=== PATIENT | male | born 1950 | race Two or more races ===

== ENCOUNTER 2025-03-15 12:22 | Inpatient (IN) | payer OTHER ==
[~2025-03-15] VITALS: Ht 180.3 cm; Wt 93.0 kg
--- NOTE | 2025-03-15 12:34 | ED.PDOC ---
History of Present Illness HPI Comments 74-year-old male brought by paramedics from [facility] office for generalized weakness. Has he has a visited his primary care physician office yesterday for generalized weakness for which he had blood work done. Blood work did show potassium to be low. He was given potassium. He has been back today for follow up which shows potassium reviewed still low. Potassium was 2.5. His heart rate was 40. Does have a history of atrial fibrillation hypertension possible CHF because he is on Lasix. He does have chronic bilateral lower extremity swelling. Other than generalized weakness he denies any other symptoms. Time Seen by MD: 12:29 Reviewed Notes: Nurses Notes, Medications, Allergies Allergies: Coded Allergies: NO KNOWN ALLERGIES (Unverified , 03/15/25) Information Source: Patient, Emergency Med Personnel Mode of Arrival: EMS Severity: Moderate Timing: Days Duration: Since onset Past Medical History PAST MEDICAL HISTORY: AFIB, HTN Surgical History: Denies all surgeries Social History Smoker: Non-Smoker Alcohol: Denies ETOH Use Drugs: Denies Drug Use Constitutional: reports: weakness; denies: chills, diaphoresis, fatigue, fever, malaise, sweats, others EENTM: denies: blurred vision, double vision, ear bleeding, ear discharge, ear drainage, ear pain, ear ringing, eye pain, eye redness, hearing loss, mouth pain, mouth swelling, nasal discharge, nose bleeding, nose congestion, nose pain, photophobia, tearing, throat pain, throat swelling, voice changes, others Respiratory: denies: cough, hemoptysis, orthopnea, SOB at rest, shortness of breath, SOB with excertion, stridor, wheezing, others Cardiovascular: denies: chest pain, dizzy spells, diaphoresis, Dyspnea on exertion, edema, irregular heart beat, left arm pain, lightheadedness, palpitations, PND, syncope, others Gastrointestinal: denies: abdomen distended, abdominal pain, blood streaked bowels, constipated, diarrhea, dysphagia, difficulty swallowing, hematemesis, melena, nausea, poor appetite, poor fluid intake, rectal bleeding, rectal pain, vomiting, others Genitourinary: denies: burning, dysuria, flank pain, frequency, hematuria, i ncontinence, penile discharge, penile sore, pain, testicle pain, testicle swelling, urgency, others Neurological: denies: dizziness, fainting, headache, left sided numbness, left sided weakness, numbness, paresthesia, pre-existing deficit, right sided numbness, right sided weakness, seizure, speech problems, tingling, tremors, weakness, others Musculoskeletal: denies: back pain, gout, joint pain, joint swelling, muscle pain, muscle stiffness, neck pain, others Integumetry: denies: bruises, change in color, change in hair/nails, dryness, laceration, lesions, lumps, rash, wounds, others Allergic/Immunocompromised: denies: Difficulty Healing, Frequent Infections, Hives, Itching, others Hematologic/Lymphatic: denies: anemia, blood clots, easy bleeding, easy bruising, swollen glands, others Endocrine: denies: excessive hunger, excessive sweating, excessive thirst, excessive urination, flushing, intolerance to cold, intolerance to heat, unexplained weight gain, unexplained weight loss, others Psychiatric: denies: anxiety, bipolar disorder, depression, hopeless, panic disorder, schizophrenia, sleepless, suicidal, others Physical Exam General Appearance: Moderate Distress HEENT: Normal ENT Inspection, Pharynx Normal, TMs Normal Neck: Full Range of Motion, Non-Tender, Normal, Normal Inspection Respiratory: Chest Non-Tender, Lungs Clear, No Accessory Muscle Use, No Respiratory Distress, Normal Breath Sounds Cardiovascular: Bradycardia Breast Exam: Deferred Gastrointestinal: No Organomegaly, Non Tender, No Pulsatile Mass, Normal Bowel Sounds, Soft, Other (Umbilical hernia) Genitalia: Deferred Pelvic: Deferred Rectal: Deferred Extremities: No calf tenderness, Normal capillary refill, Normal range of motion, Non-tender, Pedal edema, Swelling (Bilateral lower extremity) Musculoskeletal : Apperance: Normal Neurologic: Alert, comb fixer II-XII nml as Tested, No Motor Deficits, Normal Affect, Normal Mood, No Sensory Deficits Cerebellar Function: Normal Reflexes: Normal Skin: Dry, Normal Color, Warm Peripheral Pulses: 3+ Radial (R), 3+ Radial (L) Lymphatic: No Adenopathy Was a procedure done? Was a procedure done?: No EKG EKG : Pulse Rate (adult): 48 Cardiac Rhythm: Afib Differential Dx Considerations may include: Anemia Electrolyte imbalance X-Ray, Labs, Meds, VS Vital Signs Date Time Temp Pulse Resp B/P (MAP) Pulse Ox O2 Delivery O2 Flow Rate FiO2 03/15/25 12:43 48 03/15/25 12:36 97.2 48 16 141/71 97 97.2 Patient alert. Complaining of generalized weakness. Potassium is low. Answering questions. Heart rate is low. He does have a history of atrial fibrillation. Was given potassium. Establish intravenous access. Explained to the patient. Continue to monitor. Time of 1ST Reevaluation: 12:32 Reevaluation 1ST: Unchanged Patient Education/Counseling: Diagnosis, Treatment, Prognosis Family Education/Counseling: No Family Present SEPSIS Sepsis Screen Physician Orders Troponin-I Hs (03/15/25 12:34) Complete Blood Count (03/15/25 12:34) Chest Portable (03/15/25 12:34) Urinalysis (03/15/25 12:34) Basic Metabolic Panel (03/15/25 12:34) Vital Signs Date Time Temp Pulse Resp B/P (MAP) Pulse Ox O2 Delivery O2 Flow Rate FiO2 03/15/25 12:43 48 03/15/25 12:36 97.2 48 16 141/71 97 97.2 Departure 1 Departure Time of Disposition: 12:33 Impression: Primary Impression: Bradycardia Disposition: ADMITTED INPATIENT Admit to: Med Surg Condition: Guarded Critical Care Note Critical Care Time?: Yes (90 min-critical care time only) Stability Stability form required: No Heart Score Heart Score: Heart Score Response (Comments) Value History Slightly Suspicious 0 EKG Normal 0 Age >65 2 Risk Factors >3 or Hx ASHD 2 Troponin Normal limit 0 Total 4 RANDY DE LOS SANTOS MD Mar 15, 2025 12:34
[2025-03-15 13:15] LABS: Anion Gap 10 (5-15)
[2025-03-15 13:16] LABS: Calcium 9.7 mg/dL (8.7-10.4)
[2025-03-15 13:19] LABS: Carbon Dioxide 33 mmol/L (20-31); Chloride 78 mmol/L (98-107); Potassium 2.9 mmol/L (3.5-5.1); Sodium 121 mmol/L (136-145)
[2025-03-15 13:21] LABS: BUN/Creatinine Ratio 21.6 (10.0-20.0)
[2025-03-15 13:26] LABS: Blood Urea Nitrogen 37 mg/dL (9-23); Glucose 112 mg/dL (74-106)
--- NOTE | 2025-03-15 13:43 | DVH ---
EXAM: XY CHEST PORTABLE Indication: sob Technique: Single frontal view of the chest was obtained Comparison: None FINDINGS: Lines and Tubes: None Lungs: No focal consolidation. Pleura: No effusion. No pneumothorax. Cardiomediastinal contours: Unremarkable. Atherosclerotic vascular calcifications of the thoracic ao rta are noted. Bones: No acute osseous abnormality. IMPRESSION: No acute cardiopulmonary disease.
[2025-03-15 15:03] LABS: Hematocrit 40.6 % (41.0-53.0); Hemoglobin 14.8 g/dL (13.5-17.5); Mean Corpuscular Hemoglobin 33.0 pg (28.0-32.0); Mean Corpuscular Volume 90.4 fL (80.0-100.0); Nucleated Red Blood Cells % 0.6 %
[2025-03-15] MEDS ORDERED: NITROGLYCERIN 0.4 MG SL TAB SL PRN (20:00)
[2025-03-15] MEDS ORDERED: MORPHINE SULFATE INJ 2 MG/ml SYRG IV PRN (20:00)
[2025-03-15] MEDS: POTASSIUM CHL 20MEQ/100ML 100 ML IV SCH (20:31)
[2025-03-15] MEDS: POTASSIUM EFFERVESENT TAB 25 MEQ PO ONE (20:31)
[2025-03-15 21:00] VITALS: O2SAT 97
[2025-03-15] MEDS: DOPamine 1600MCG/ML D5W 250 ML IV SCH (21:00)
[2025-03-15] MEDS ORDERED: ACETAMINOPHEN 325 MG TAB PO PRN (21:45)
[2025-03-15] MEDS ORDERED: ONDANSETRON HCL 4 MG/2 ML VIAL IV PRN (21:45)
--- NOTE | 2025-03-15 21:52 | DVHHP2 ---
History of Present Illness Reason for Visit: Generalized weakness History of Present Illness 74-year-old male presents for evaluation of generalized weakness. Patient reports receiving a call from his primary care provider's office and advised to present to the emergency department due to an abnormal low potassium level. He also reports a one-week history of worsening dizziness with fatigue. No chest pain. Reports occasional shortness for breath. He does have a history of chronic bilateral lower extremity edema. Past Medical History CHF, hypertension, atrial fibrillation Past Surgical History None Family History Noncontributory Smoke: No ALCOHOL: none Drugs: None Lives: with Family Review of Systems Review of Systems Review of systems are currently negative otherwise addressed in HPI. Allergies: Coded Allergies: NO KNOWN ALLERGIES (Unverified , 03/15/25) Medications Current Medications Medications Dose Ordered Sig/Lucio Route Start Time Stop Time Status Last Admin Dose Admin Potassium Chloride 100 ml @ 50 mls/hr Q2H IV 03/15/25 19:15 03/15/25 23:14 03/15/25 20:31 50 MLS/HR Nitroglycerin 0.4 mg Q5MINP PRN SL 03/15/25 20:00 Morphine Sulfate 2 mg Q30M PRN IV 03/15/25 20:00 Dopamine HCl/ Dextrose 250 ml @ 16.594 mls/ hr Q15H4M IV 03/15/25 21:00 Exam Vital Signs Vital Signs Date Time Temp Pulse Resp B/P (MAP) Pulse Ox O2 Delivery O2 Flow Rate FiO2 03/15/25 21:00 97.6 46 15 125/54 (77) 100 97.6 Exam Gen: 74-year-old male in mild distress Skin: Warm, dry, normal color and texture, no rash. HEENT: Normocephalic atraumatic, mucous membranes moist and pink. Neck: Cervical and supraclavicular nodes normal without enlargement, trachea is midline, thyroid gland is normal without masses. Pulmonary: Clear to auscultation and percussion bilaterally. Cardiac: Sinus bradycardia Abdomen: Soft, nontender, nondistended, bowel sounds present all 4 quadrants, no guarding, no rigidity, no organomegaly. Extremities: No cyanosis, clubbing, plus two bilateral pedal edema Neuro: Cranial nerves II through XII grossly intact, normal affect and speech, no focal motor deficits. Labs/Xrays ORDERING PHYSICIAN: RANDY DE LOS SANTOS MD PROCEDURE(s): CXRP - CHEST PORTABLE REASON: sob ORDER NUMBER(s): [id number], ACCESSION NUMBER(s): [id number] EXAM: XY CHEST PORTABLE Indication: sob Technique: Single frontal view of the chest was obtained Comparison: None FINDINGS: Lines and Tubes: None Lungs: No focal consolidation. Pleura: No effusion. No pneumothorax. Cardiomediastinal contours: Unremarkable. Atherosclerotic vascular calcifications of the thoracic aorta are noted. Bones: No acute osseous abnormality. IMPRESSION: No acute cardiopulmonary disease. Labs Test 03/15/25 12:50 Range/Units White Blood Count 9.2 4.4-10.8 10^3/uL Red Blood Count 4.49 L 4.5-5.90 10^6/uL Hemoglobin 14.8 13.5-17.5 g/dL Hematocrit 40.6 L 41.0-53.0 % Mean Corpuscular Volume 90.4 80.0-100.0 fL Mean Corpuscular Hemoglobin 33.0 H 28.0-32.0 pg Mean Corpuscular Hemoglobin Concent 36.5 H 32.0-36.0 g/dL Red Cell Distribution Width 12.7 11.8-14.3 % Platelet Count 214 140-450 10^3/uL Mean Platelet Volume 7.0 6.9-10.8 fL Neutrophils (%) (Auto) 74.5 37.0-80.0 % Lymphocytes (%) (Auto) 11.5 10.0-50.0 % Monocytes (%) (Auto) 12.7 H 0.0-12.0 % Eosinophils (%) (Auto) 0.4 0.0-7.0 % Basophils (%) (Auto) 0.9 0.0-2.0 % Neutrophils # (Auto) 6.9 1.6-8.6 10 ^3/uL Lymphocytes # (Auto) 1.1 0.4-5.4 10 ^3/uL Monocytes # (Auto) 1.2 0-1.3 10 ^3/uL Eosinophils # (Auto) 0 0-0.8 10 ^3/uL Basophils # (Auto) 0.1 0-0.2 10 ^3/uL Nucleated Red Blood Cells 0.6 % Sodium Level 121 L 136-145 mmol/L Potassium Level 2.9 L 3.5-5.1 mmol/L Chloride Level 78 L 98-107 mmol/L Carbon Dioxide Level 33 H 20-31 mmol/L Anion Gap 10 5-15 Blood Urea Nitrogen 37 H 9-23 mg/dL Creatinine 1.71 H 0.700-1.30 mg/dL Glomerular Filtration Rate Calc 42 >90 mL/min BUN/Creatinine Ratio 21.6 H 10.0-20.0 Serum Glucose 112 H 74-106 mg/dL Calcium Level 9.7 8.7-10.4 mg/dL Troponin I High Sensitivity 15 </=54 ng/L SEPSIS Sepsis Screen Date sepsis recognized/suspect: Mar 15, 2025 Time Sepsis recognized/suspect: 2100 Recent Procedure: No On Antibiotic Therapy: No Respiratory Rate >20: No Heart Rate >90: No Temp<36 C (96.8 F) or >38.3 C: No SBP <90 or MAP <65 mmHG: No New Acute Mental Status Change: No Is the patient on CPAP, BIPAP,: No Physician Orders Potassium Chl 20meq/100ml (03/15/25 19:15) Admit (03/15/25 19:52) Nitroglycerin Sublingual (Ntrostat Subli (03/15/25 20:00) Morphine Sulfate Injection (03/15/25 20:00) Stat Ekg For Chest Pain (03/15/25 19:52) Notify Md Of Changes From Base (03/15/25 19:52) Subscription Clerk For 24 Hours (03/15/25 19:52) Emergency Dysrhythmia Protocol (03/15/25 19:52) Rhythm Strips Once Every Shift (03/15/25 19:52) Oxygen By Nasal Cannula (03/15/25 19:52) Dopamine 1600mcg/Ml D5w (03/15/25 21:00) Vital Signs Date Time Temp Pulse Resp B/P (MAP) Pulse Ox O2 Delivery O2 Flow Rate FiO2 03/15/25 21:00 97.6 46 15 125/54 (77) 100 97.6 Laboratory Tests Test 03/15/25 12:50 White Blood Count 9.2 10^3/uL (4.4-10.8) Medications Medications Dose Ordered Sig/Lucio Route Start Time Stop Time Status Last Admin Dose Admin Potassium Bicarbonate 25 meq ONCE ONCE PO 03/15/25 19:15 03/15/25 19:16 DC 03/15/25 20:31 25 MEQ Potassium Chloride 100 ml @ 50 mls/hr Q2H IV 03/15/25 19:15 03/15/25 23:14 03/15/25 20:31 50 MLS/HR Assessment/Plan Assessment/Plan Assessment Symptomatic bradycardia Hypokalemia Hypertension Acute kidney injury Chronic lower extremity edema Plan Admit the patient to [facility] to the hospitalist Cardiology consultation NPO after midnight Start dopamine drip if systolic blood pressure drops below 100 Continue treatment per orders Total critical care time excluding procedures performed this 55 minutes. Plan discussed with: Patient My Orders Orders - BUNNY RAYA Procedure Category Date Status Time Admit ADMIT 03/15/25 Transmitted 19:52 Nitroglycerin PHA 03/15/25 In Process Sublingual (Ntrostat 20:00 Morphine Sulfate PHA 03/15/25 In Process Injection 20:00 Stat Ekg For Chest MARCELLA 03/15/25 In Process Pain 19:52 Notify Md Of Changes MARCELLA 03/15/25 In Process From Base 19:52 Subscription Clerk For MARCELLA 03/15/25 In Process 24 Hours 19:52 Emergency Dysrhythmia [facility] 03/15/25 In Process Protocol 19:52 Rhythm Strips Once [facility] 03/15/25 In Process Every Shift 19:52 Oxygen By Nasal RT 03/15/25 Transmitted Cannula 19:52 Dopamine 1600mcg/Ml PHA 03/15/25 In Process D5W 21:00 Date of Service: Mar 15, 2025 Billing Provider: BUNNY RAYA Common Visit Codes: [id number] CARE 30-74 MIN BUNNY RAYA Mar 15, 2025 21:52
[2025-03-15 22:19] LABS: INR 1.05 (0.9-1.15); Partial Thromboplastin Time 28.5 SEC (24.5-34.5); Prothrombin Time 11.1 sec (9.3-11.8)
[2025-03-15] MEDS: APIXABAN 5 MG TAB PO SCH (22:25)
[2025-03-15] MEDS: GLUCAGON EMERG KIT 1mg/1ml IV ONE (22:28)
[2025-03-16] VITALS (20 sets, daily range): BP systolic 111–153; BP diastolic 49–85; PULSE 42–56; RESP 9–20; TEMP 97.5–97.9; O2SAT 97–100
[2025-03-16 04:51] LABS: Hematocrit 37.2 % (41.0-53.0); Hemoglobin 13.5 g/dL (13.5-17.5); Mean Corpuscular Hemoglobin 33.0 pg (28.0-32.0); Mean Corpuscular Volume 90.8 fL (80.0-100.0); Nucleated Red Blood Cells % 0.3 %
[2025-03-16 04:57] LABS: Potassium 3.8 mmol/L (3.5-5.1)
[2025-03-16 04:58] LABS: Anion Gap 7 (5-15); Calcium 8.9 mg/dL (8.7-10.4)
[2025-03-16 04:59] LABS: Carbon Dioxide 33 mmol/L (20-31); Chloride 85 mmol/L (98-107); Sodium 125 mmol/L (136-145)
[2025-03-16 05:03] LABS: BUN/Creatinine Ratio 22.8 (10.0-20.0); Glucose 87 mg/dL (74-106)
[2025-03-16 05:04] LABS: Blood Urea Nitrogen 38 mg/dL (9-23)
[2025-03-16] MEDS: FUROSEMIDE 40 MG TAB PO SCH (06:21)
--- NOTE | 2025-03-16 06:22 | ECG ---
[facility] Test Date: 2025-03-16 Test Time: 06:19:42 Pat Name: CORINA FRANCISCO Department: Room: [facility]24[facility] Gender: M Thoracic Medicine Specialist: [id number] : 1950 Requested By: BUNNY RAYA Order Number: [id number] Reading MD: Dewayne Navarro Measurements Intervals [place] Rate: 47 P: 0 HI: 0 QRS: 53 QRSD: 158 T: -16 QT: 491 QTc: 434 Interpretive Statements Atrial fibrillation Ventricular premature complex IVCD, consider atypical RBBB Probable anteroseptal infarct, old Borderline ST depression, lateral leads Electronically Signed On 03-16-2025 13:12:52 PDT by Dewayne Navarro Please click the below link to view image of tracing.
[2025-03-16 07:00] LABS: Urine Protein, UAD Negative (Negative)
--- NOTE | 2025-03-16 10:53 | ECG ---
[facility] Test Date: 2025-03-15 Test Time: 12:38:59 Pat Name: CORINA FRANCISCO Department: ED Room: [address] [place] [address] Gender: M Technical Operations Manager: brii : 1950 Requested By: RANDY DE LOS SANTOS Order Number: [id number] Reading MD: Dewayne Navarro Measurements Intervals [place] Rate: 48 P: 0 NH: 0 QRS: 93 QRSD: 151 T: 3 QT: 627 QTc: 561 Interpretive Statements Atrial fibrillation Ventricular premature complex IVCD, consider atypical RBBB Anteroseptal infarct, age indeterminate Electronically Signed On 03-16-2025 13:11:50 PDT by Dewayne Navarro Please click the below link to view image of tracing.
[2025-03-16] MEDS: DOPamine 1600MCG/ML D5W 250 ML IV SCH (11:00)
[2025-03-16] MEDS: DOPamine 1600MCG/ML D5W 250 ML IV ONE (11:05)
--- NOTE | 2025-03-16 12:08 | DVHINCON2 ---
Date of service: Mar 16, 2025 History of Present Illness 74 yo M with CHF, on hospice admitted for weakness. he is found to be in slow afib. we dont have his home list of meds. pt has been on hospice for past month or so. Past Medical History reviewed Allergies: Coded Allergies: NO KNOWN ALLERGIES (Unverified , 03/15/25) Current Medications Current Medications Medications (Trade) Dose Ordered Sig/Lucio Route PRN Reason Start Time Stop Time Status Last Admin Potassium Chloride 100 ml @ 50 mls/hr Q2H IV 03/15/25 19:15 03/15/25 23:14 DC 03/15/25 22:25 Nitroglycerin (Ntrostat Sublingual) 0.4 mg Q5MINP PRN SL FOR CHEST PAIN 03/15/25 20:00 Morphine Sulfate 2 mg Q30M PRN IV FOR CHEST PAIN 03/15/25 20:00 Dopamine HCl/ Dextrose 250 ml @ 16.594 mls/ hr Q15H4M IV 03/15/25 21:00 03/16/25 10:32 DC Apixaban (Eliquis) 5 mg BID PO 03/15/25 22:00 03/16/25 10:32 DC 03/15/25 22:25 Furosemide (Lasix Tablet) 40 mg BIDD PO 03/16/25 06:00 03/16/25 06:21 Ondansetron HCl (Zofran) 4 mg Q4HP PRN IV NAUSEA / VOMITING 03/15/25 21:45 Acetaminophen (Tylenol Tablet) 650 mg Q6HP PRN PO PAIN SCALE 1-3 OR TEMP>100.4 03/15/25 21:45 Dopamine HCl/ Dextrose 250 ml @ 8.513 mls/ hr Q24H IV 03/16/25 10:30 Review of Systems 10 pt ros otherwise negative Vital Signs Vital Signs Date Time Temp Pulse Resp B/P (MAP) Pulse Ox O2 Delivery O2 Flow Rate FiO2 03/16/25 10:00 50 14 125/66 (85) 99 03/16/25 09:45 97.9 97.9 03/16/25 09:38 Nasal Cannula* 2 28 Physical Exam nad s1 s2 irregular diffuse rhonchi abd soft nt/nd Labs/Diagnostic Data Labs Test 03/16/25 06:41 03/16/25 04:30 03/15/25 21:55 03/15/25 21:50 Range/Units Urine Color Light-yellow Yellow Urine Clarity Clear Clear Urine pH 6.5 5.0-9.0 Urine Specific [place] 1.006 1.001-1.035 Urine Protein Negative Negative Urine Ketones Negative Negative Urine Blood Negative Negative /uL Urine Nitrite Negative Negative Urine Bilirubin Negative Negative Urine Urobilinogen Normal Negative mg/dL Urine Leukocyte Esterase Negative Negative /uL Urine RBC <1 0 - 3 /hpf Urine Microscopic WBC < 1 0-3 /HPF Urine Squamous Epithelial Cells None seen <5 /hpf Urine Bacteria None seen None Seen /hpf Urine Glucose Normal Normal mg/dL White Blood Count 8.9 4.4-10.8 10^3/uL Red Blood Count 4.09 L 4.5-5.90 10^6/uL Hemoglobin 13.5 13.5-17.5 g/dL Hematocrit 37.2 L 41.0-53.0 % Mean Corpuscular Volume 90.8 80.0-100.0 fL Mean Corpuscular Hemoglobin 33.0 H 28.0-32.0 pg Mean Corpuscular Hemoglobin Concent 36.4 H 32.0-36.0 g/dL Red Cell Distribution Width 12.8 11.8-14.3 % Platelet Count 194 140-450 10^3/uL Mean Platelet Volume 6.7 L 6.9-10.8 fL Neutrophils (%) (Auto) 66.9 37.0-80.0 % Lymphocytes (%) (Auto) 16.7 10.0-50.0 % Monocytes (%) (Auto) 14.2 H 0.0-12.0 % Eosinophils (%) (Auto) 1.6 0.0-7.0 % Basophils (%) (Auto) 0.6 0.0-2.0 % Neutrophils # (Auto) 5.9 1.6-8.6 10 ^3/uL Lymphocytes # (Auto) 1.5 0.4-5.4 10 ^3/uL Monocytes # (Auto) 1.3 0-1.3 10 ^3/uL Eosinophils # (Auto) 0.1 0-0.8 10 ^3/uL Basophils # (Auto) 0.1 0-0.2 10 ^3/uL Nucleated Red Blood Cells 0.3 % Sodium Level 125 L 136-145 mmol/L Potassium Level 3.8 3.5-5.1 mmol/L Chloride Level 85 L 98-107 mmol/L Carbon Dioxide Level 33 H 20-31 mmol/L Anion Gap 7 5-15 Blood Urea Nitrogen 38 H 9-23 mg/dL Creatinine 1.67 H 0.700-1.30 mg/dL Glomerular Filtration Rate Calc 43 >90 mL/min BUN/Creatinine Ratio 22.8 H 10.0-20.0 Serum Glucose 87 74-106 mg/dL Calcium Level 8.9 8.7-10.4 mg/dL Prothrombin Time 11.1 9.3-11.8 sec Prothrombin Time INR 1.05 0.9-1.15 Activated Partial Thromboplast Time 28.5 24.5-34.5 SEC B-Type Natriuretic Peptide 169.44 0-100 pg/mL Thyroid Stimulating Hormone (TSH) 1.84 0.55-4.78 uIU/mL Test 03/15/25 12:50 Range/Units Troponin I High Sensitivity 15 </=54 ng/L Assessment sick sinus afib hospice htn Plan/Recommendation tried to call family 3 x but no one picks up tele reviewed hold all avn agents low dose dopamine gtt check echo conisder ppm, if pt and family wish to proceed dw RN Plan discussed with: Patient MIKO BLACKMON MD Mar 16, 2025 12:08
--- NOTE | 2025-03-16 12:10 | DVHSR ---
APPROVED REPORT EXAM: Two-dimensional and M-mode echocardiogram with Doppler and color Doppler. Blood Pressure: 134/59 mmHg INDICATION sympotmatic bradycardia RISK FACTORS Height: 5'11, Weight: 195 DIMENSIONS LVDd4.7 (3.8-5.7cm)LA (2D)5.2 (1.9-4.0cm)Aortic Root3.4 (2.0-3.7cm) LVDs3.3 (2.5-4.0cm)LA (MM) (1.9-4.0cm)Aortic Cusp Exc2.2 (1.5-2.0cm) EF (%) 55.0 (55-70%)Rt. Atrium3.6 (1.9-4.0cm)Asc. Aorta3.9 cm IVSd1.3 (0.7-1.1cm)RV (D)3.3 (1.8-2.4cm) PWd1.3 (0.7-1.1cm) Mitral Valve MitralMitral Stenosis E wave0.78m/sMV Mean GR.1mmHg A wave0.01m/sMV Peak GR.98mmHg E/A ratio78.02D MVAcm2 DECEL [id number] 1/2 Timems Aortic Valve Aortic ValveAortic Stenosis V10.87m/Bruce Mean GR.4mmHg V21.23m/Bruce Peak GR.6mmHg LVOT Diameter2.5 (1.8-2.4cm)Doppler AVA3.47cm2 AI P 1/2 [id number] Pulmonic Valve V20.79m/s Tricuspid Valve TR Velocity2.24m/s [id number] Conclusion lvef 55% left atrium enlarged mild LVH dysrhthmia noted
--- NOTE | 2025-03-16 13:19 | DVHPN2 ---
Reviewed: Care Plan, H&P, Labs, Medications, Previous Orders, Radiology Changes from previous H/P or p: No Changes Objective Vitals Vital Signs Date Time Temp Pulse Resp B/P (MAP) Pulse Ox O2 Delivery O2 Flow Rate FiO2 03/16/25 12:00 97.7 54 11 140/69 (92) 100 97.7 03/16/25 09:38 Nasal Cannula* 2 28 Intake/Output Intake and Output 03/16/25 07:00 Intake Total 250 ml Balance 250 ml Intake IV Total 250 ml Medications Current Medications Medications Dose Ordered Sig/Lucio Route Start Time Stop Time Status Last Admin Dose Admin Nitroglycerin 0.4 mg Q5MINP PRN SL 03/15/25 20:00 Morphine Sulfate 2 mg Q30M PRN IV 03/15/25 20:00 Furosemide 40 mg BIDD PO 03/16/25 06:00 03/16/25 06:21 40 MG Ondansetron HCl 4 mg Q4HP PRN IV 03/15/25 21:45 Acetaminophen 650 mg Q6HP PRN PO 03/15/25 21:45 Dopamine HCl/ Dextrose 250 ml @ 8.513 mls/ hr Q24H IV 03/16/25 10:30 03/16/25 11:00 8.513 MLS/HR Laboratory Results Laboratory Tests 03/16/25 04:30 Chemistry Test 03/16/25 04:30 Calcium Level 8.9 mg/dL (8.7-10.4) Coagulation Test 03/15/25 21:55 Prothrombin Time 11.1 sec (9.3-11.8) Prothrombin Time INR 1.05 (0.9-1.15) Activated Partial Thromboplast Time 28.5 SEC (24.5-34.5) Cardiac Markers Test 03/15/25 21:50 B-Type Natriuretic Peptide 169.44 pg/mL (0-100) HgA1c, TSH Test 03/15/25 21:50 Thyroid Stimulating Hormone (TSH) 1.84 uIU/mL (0.55-4.78) Urinalysis Test 03/16/25 06:41 Urine Color Light-yellow (Yellow) Urine Clarity Clear (Clear) Urine pH 6.5 (5.0-9.0) Urine Specific [place] 1.006 (1.001-1.035) Urine Protein Negative (Negative) Urine Ketones Negative (Negative) Urine Blood Negative /uL (Negative) Urine Nitrite Negative (Negative) Urine Bilirubin Negative (Negative) Urine Urobilinogen Normal mg/dL (Negative) Urine Leukocyte Esterase Negative /uL (Negative) Urine RBC <1 /hpf (0 - 3) Urine Microscopic WBC < 1 /HPF (0-3) Urine Squamous Epithelial Cells None seen /hpf (<5) Urine Bacteria None seen /hpf (None Seen) Urine Glucose Normal mg/dL (Normal) Labs and/or images reviewed: Labs reviewed by me, Image(s) reviewed by me Assessment/Plan Assessment/Plan Dizziness Acute hypokalemia potassium 2.9: Replace potassium Acute hyponatremia sodium 121: IV fluids Acute on chronic CHF exacerbation Hypertension History of atrial fibrillation Symptomatic bradycardia heart rate [address] Khanna planning for permanent pacemaker implantation; on dopamine drip Time Spent 70 minutes Advanced care planning time 20 minutes Patient is full code Plan discussed with: Patient Date of Service: Mar 16, 2025 Billing Provider: ALEXANDRO DONALD MD Common Visit Codes: [id number] CARE 30-74 MIN ALEXANDRO DONALD MD Mar 16, 2025 13:19
[2025-03-16] MEDS: POTASSIUM CHL 20 Meq TABLET PO ONE (16:54)
--- NOTE | 2025-03-16 17:44 | DVHINCON2 ---
Date of service: Mar 16, [address] Khanna Reason for Consultation Symptomatic Bradycardia, Evaluation for Permanent Pacemaker Implantation History of Present Illness This is a 74-year old male who initially presented with reported dizziness and weakness. Reports indicate the patient was referred by his primary care physician due to abnormal potassium levels which upon ED arrival, potassium level had been found to be 2.9 which had been supplemented and hypokalemia itself had later resolved. Of note, upon ED arrival initial 12-lead electrocardiogram had revealed evidence for atrial flutter with a ventricular rate of 47bpm consistent with atrial fibrillation with slow ventricular response. Throughout course of present admission, patient has sustained atrial flutter with slow ventricular response with lowest documented heart rate within the 30's as confirmed by telemetry strip findings which patient had been initiated on Dopamine infusion for rate support and admitted to the [facility] for close observation/management. Initial HS troponin level was found normal at 15. TSH level was found normal at 1.84. Echocardiogram revealed a preserved LVEF of 55% with no evidence for significant valvular abnormalities. Telemetry at present time of consultation is consistent with atrial fibrillation with slow ventricular response despite continuous Dopamine infusion. Patient himself dose endorse ongoing dizziness/weakness. Recognizing the above, presentation at this point is consistent with symptomatic bradycardia for which Electrophysiology services were involved by Interventional Cardiology request to evaluate patient candidacy for potential permanent pacemaker implantation. Echocardiogram: Conclusion lvef 55%. left atrium enlarged. mild LVH. dysrhthmia noted Past Medical History Reviewed Past Surgical History Reviewed Allergies: Coded Allergies: NO KNOWN ALLERGIES (Unverified , 03/15/25) Home Meds Reported Medications Amlodipine Besylate (Amlodipine Besylate) 5 Mg Tab, 5 MG PO BID for 30 Days, MG 03/16/25 Losartan Potassium (Losartan Potassium) 50 Mg Tab, 50 MG PO BID for 30 Days, MG 03/16/25 Aspirin (Aspir-81) 81 Mg Tab, 1 TAB PO DAILY, #30 TAB 5 Refills 03/16/25 Cephalexin Monohydrate (Cephalexin) 500 Mg Cap, 500 MG PO TID, MG 03/16/25 Clopidogrel Bisulfate (Plavix) 75 Mg Tab, 1 TAB PO DAILY, #90 TAB 1 Refill 03/16/25 Metolazone (Metolazone) 2.5 Mg Tab, 2.5 MG PO DAILY for 30 Days, MG 03/16/25 Furosemide (Furosemide) 40 Mg Tab, 40 MG PO BIDD for 30 Days, MG 03/16/25 Current Medications Current Medications Medications (Trade) Dose Ordered Sig/Lucio Route PRN Reason Start Time Stop Time Status Last Admin Potassium Chloride 100 ml @ 50 mls/hr Q2H IV 03/15/25 19:15 03/15/25 23:14 DC 03/15/25 22:25 Nitroglycerin (Ntrostat Sublingual) 0.4 mg Q5MINP PRN SL FOR CHEST PAIN 03/15/25 20:00 Morphine Sulfate 2 mg Q30M PRN IV FOR CHEST PAIN 03/15/25 20:00 Dopamine HCl/ Dextrose 250 ml @ 16.594 mls/ hr Q15H4M IV 03/15/25 21:00 03/16/25 10:32 DC Apixaban (Eliquis) 5 mg BID PO 03/15/25 22:00 03/16/25 10:32 DC 03/15/25 22:25 Furosemide (Lasix Tablet) 40 mg BIDD PO 03/16/25 06:00 03/16/25 16:54 Ondansetron HCl (Zofran) 4 mg Q4HP PRN IV NAUSEA / VOMITING 03/15/25 21:45 Acetaminophen (Tylenol Tablet) 650 mg Q6HP PRN PO PAIN SCALE 1-3 OR TEMP>100.4 03/15/25 21:45 Dopamine HCl/ Dextrose 250 ml @ 8.513 mls/ hr Q24H IV 03/16/25 10:30 03/16/25 11:00 Folic Acid 1 mg/ Multivitamins 10 ml/Magnesium Sulfate 8 meq/ Thiamine HCl 100 mg/Dextrose 1,013.2 ml @ 125.001 mls/hr DAILY@1800 INJ 03/16/25 18:00 Potassium Chloride (Klor-Con Tablet) 20 meq DAILY PO 03/17/25 22:00 03/16/25 16:30 DC Potassium Chloride (Klor-Con Tablet) 20 meq DAILY PO 03/17/25 10:00 Review of Systems A 14-point review of systems is negative unless otherwise noted above Vital Signs Vital Signs Date Time Temp Pulse Resp B/P (MAP) Pulse Ox O2 Delivery O2 Flow Rate FiO2 03/16/25 17:00 46 16 117/55 (75) 100 03/16/25 16:00 97.5 97.5 03/16/25 09:38 Nasal Cannula* 2 28 Physical Exam Heart: S1 and S2 regular. The patient is bradycardic and in atrial fibrillation Lungs: Scattered rhonchi. Abdomen: Benign. Extremities: Distal pulses palpable, 2+. No evidence for peripheral edema Labs/Diagnostic Data Labs Test 03/16/25 06:41 03/16/25 04:30 03/15/25 21:55 03/15/25 21:50 Range/Units Urine Color Light-yellow Yellow Urine Clarity Clear Clear Urine pH 6.5 5.0-9.0 Urine Specific [place] 1.006 1.001-1.035 Urine Protein Negative Negative Urine Ketones Negative Negative Urine Blood Negative Negative /uL Urine Nitrite Negative Negative Urine Bilirubin Negative Negative Urine Urobilinogen Normal Negative mg/dL Urine Leukocyte Esterase Negative Negative /uL Urine RBC <1 0 - 3 /hpf Urine Microscopic WBC < 1 0-3 /HPF Urine Squamous Epithelial Cells None seen <5 /hpf Urine Bacteria None seen None Seen /hpf Urine Glucose Normal Normal mg/dL White Blood Count 8.9 4.4-10.8 10^3/uL Red Blood Count 4.09 L 4.5-5.90 10^6/uL Hemoglobin 13.5 13.5-17.5 g/dL Hematocrit 37.2 L 41.0-53.0 % Mean Corpuscular Volume 90.8 80.0-100.0 fL Mean Corpuscular Hemoglobin 33.0 H 28.0-32.0 pg Mean Corpuscular Hemoglobin Concent 36.4 H 32.0-36.0 g/dL Red Cell Distribution Width 12.8 11.8-14.3 % Platelet Count 194 140-450 10^3/uL Mean Platelet Volume 6.7 L 6.9-10.8 fL Neutrophils (%) (Auto) 66.9 37.0-80.0 % Lymphocytes (%) (Auto) 16.7 10.0-50.0 % Monocytes (%) (Auto) 14.2 H 0.0-12.0 % Eosinophils (%) (Auto) 1.6 0.0-7.0 % Basophils (%) (Auto) 0.6 0.0-2.0 % Neutrophils # (Auto) 5.9 1.6-8.6 10 ^3/uL Lymphocytes # (Auto) 1.5 0.4-5.4 10 ^3/uL Monocytes # (Auto) 1.3 0-1.3 10 ^3/uL Eosinophils # (Auto) 0.1 0-0.8 10 ^3/uL Basophils # (Auto) 0.1 0-0.2 10 ^3/uL Nucleated Red Blood Cells 0.3 % Sodium Level 125 L 136-145 mmol/L Potassium Level 3.8 3.5-5.1 mmol/L Chloride Level 85 L 98-107 mmol/L Carbon Dioxide Level 33 H 20-31 mmol/L Anion Gap 7 5-15 Blood Urea Nitrogen 38 H 9-23 mg/dL Creatinine 1.67 H 0.700-1.30 mg/dL Glomerular Filtration Rate Calc 43 >90 mL/min BUN/Creatinine Ratio 22.8 H 10.0-20.0 Serum Glucose 87 74-106 mg/dL Calcium Level 8.9 8.7-10.4 mg/dL Magnesium Level 2.5 1.6-2.6 mg/dL Prothrombin Time 11.1 9.3-11.8 sec Prothrombin Time INR 1.05 0.9-1.15 Activated Partial Thromboplast Time 28.5 24.5-34.5 SEC B-Type Natriuretic Peptide 169.44 0-100 pg/mL Thyroid Stimulating Hormone (TSH) 1.84 0.55-4.78 uIU/mL Test 03/15/25 12:50 Range/Units Troponin I High Sensitivity 15 </=54 ng/L Microbiology Date/Time Source Procedure Growth Status 03/16/25 09:04 Nose MRSA Screen - Final Complete Plan/Recommendation ASSESSMENT: This is a 74-year old male who initially presented with reported dizziness and weakness. Reports indicate the patient was referred by his primary care physic lizzy due to abnormal potassium levels which upon ED arrival, potassium level had been found to be 2.9 which had been supplemented and hypokalemia itself had later resolved. Of note, upon ED arrival initial 12-lead electrocardiogram had revealed evidence for atrial flutter with a ventricular rate of 47bpm consistent with atrial fibrillation with slow ventricular response. Throughout course of present admission, patient has sustained atrial flutter with slow ventricular response with lowest documented heart rate within the 30's as confirmed by telemetry strip findings which patient had been initiated on Dopamine infusion for rate support and admitted to the [facility] for close observation/management. Initial HS troponin level was found normal at 15. TSH level was found normal at 1.84. Echocardiogram revealed a preserved LVEF of 55% with no evidence for significant valvular abnormalities. Telemetry at present time of consultation is consistent with atrial fibrillation with slow ventricular response despite continuous Dopamine infusion. Patient himself dose endorse ongoing dizziness/weakness. Recognizing the above, presentation at this point is consistent with symptomatic bradycardia for which Electrophysiology services were involved by Interventional Cardiology request to evaluate patient candidacy for potential permanent pacemaker implantation. Echocardiogram: Conclusion lvef 55%. left atrium enlarged. mild LVH. dysrhthmia noted Symptomatic bradycardia, lowest HR within 30 requiring Dopamine infusion for rate support Persistent atrial flutter with slow ventricular response, on chronic anticoagulation w/ last dose of Eliquis 03/15/2025 Preserved LVEF of 55% per Echocardiogram 02/2025 Hypokalemia, resolved ELECTROPHYSIOLOGY SUGGESTIONS FOR MANAGEMENT: Recognizing the above mentioned, patient himself benefits from undergoing implantation of permanent pacemaker. Benefits, risks, and alternatives were discussed at length with the patient/family whom at this point are agreeable to the plan of care. Therefore will plan for permanent pacemaker implantation with Dr. York 03/17/2025 however it is of note patient does have underlying history of persistent atrial flutter on chronic anticoagulation with last dose of Eliquis on the evening of . Recognizing the above, patient at this point is considered at greater risk for developing unwarranted potential post- operative hematoma/hemorrhage should tradition permanent pacemaker implantation be pursued and furthermore recognizing evidence for persistent atrial flutter with need for continued anticoagulation therapy post device implantation to reduce potential risk for unwarranted cerebral insult, recommendation at this point is to pursue implantation of lead-less Micra permanent pacemaker which patient/family are agreeable to. Patient to be consented and NPO status at midnight. Proceed with Dopamine infusion during the interim. Proceed with avoidance of AV celia blocking agents. Remainder of cardiac management as per interventional cardiology services. Will proceed to follow from an EP perspective. Proceed with close rate and rhythm surveillance Proceed with close hemodynamic surveillance Proceed with optimized blood pressure control Transfuse to sustain HGB level above 7.0 Sustain Magnesium level greater than 2.0 Sustain Potassium level greater than 4.0 Follow up renal function and electrolytes Management in [facility] Follow up alliance consultant recommendations Will proceed to follow from an EP perspective Further recommendations per clinical progression All available diagnostic labs, EKG's, and images were personally reviewed Patient's status, findings, and plan of care was reviewed and discussed with supervising physician Dr. York, who is in agreement with current plan of care. Plan of care discussed with and agreed upon by patient / family / primary RN Prognosis: Guarded Thank you for allowing me to participate in the care of this patient. Further recommendations based on patients clinical course and progression, primary attending, and other consultants. Will continue to follow with primary attending. If you have any questions or concerns, please do not hesitate to contact me. A total of 75 minutes was spent reviewing the patient record, examining the patient, making a diagnostic and therapeutic plan, discussing this plan with medical personnel, following up on diagnostic studies and following the patient for clinical stability excluding any and all procedures. At least 50% of this time was spent in direct, [id number] contact. Plan discussed with: Other (patient/family/primary rn) CECELIA HERNANDZE [facility] Mar 16, 2025 17:44
[2025-03-16] MEDS: FOLIC ACID 1 MG, MULTIPLE VITAMIN 10 ML, MAGNESIUM SULF SDV 50% 8 MEQ, THIAMINE INJ 100... INJ SCH (18:39)
[2025-03-16] MEDS ORDERED: ASPI1TAB20 PO (19:17)
[2025-03-16] MEDS ORDERED: LOSA-534 PO (19:17)
[2025-03-16] MEDS ORDERED: CEPH500C PO (19:17)
[2025-03-16] MEDS ORDERED: METO2.5T PO (19:17)
[2025-03-16] MEDS ORDERED: FURO40TA4 PO (19:17)
[2025-03-16] MEDS ORDERED: AMLO1TAB22 PO (19:17)
[2025-03-16] MEDS ORDERED: CLOP75TA28 PO (19:17)
[2025-03-16] MEDS: SODIUM CHLORIDE 0.9% 1,000 ML IV SCH (21:51)
[2025-03-17] VITALS (23 sets, daily range): BP systolic 103–139; BP diastolic 49–67; PULSE 42–64; RESP 10–22; TEMP 97.6–99; O2SAT 95–100
[2025-03-17 05:51] LABS: Hematocrit 40.1 % (41.0-53.0); Hemoglobin 14.6 g/dL (13.5-17.5); Mean Corpuscular Hemoglobin 33.2 pg (28.0-32.0); Mean Corpuscular Volume 91.1 fL (80.0-100.0); Nucleated Red Blood Cells % 0.0 %
[2025-03-17 06:09] LABS: INR 1.03 (0.9-1.15); Partial Thromboplastin Time 29.9 SEC (24.5-34.5); Prothrombin Time 10.9 sec (9.3-11.8)
[2025-03-17 06:11] LABS: Anion Gap 10 (5-15); Carbon Dioxide 31 mmol/L (20-31)
[2025-03-17 06:12] LABS: Calcium 9.3 mg/dL (8.7-10.4)
[2025-03-17 06:17] LABS: BUN/Creatinine Ratio 21.4 (10.0-20.0)
[2025-03-17 06:18] LABS: Magnesium 2.1 mg/dL (1.6-2.6)
[2025-03-17 06:28] LABS: Blood Urea Nitrogen 31 mg/dL (9-23); Chloride 84 mmol/L (98-107); Glucose 108 mg/dL (74-106); Potassium 2.7 mmol/L (3.5-5.1); Sodium 125 mmol/L (136-145)
[2025-03-17] MEDS: POTASSIUM CHL 20MEQ/100ML 100 ML IV SCH (07:17)
[2025-03-17] MEDS: POTASSIUM CHL 20 Meq TABLET PO SCH (07:19)
[2025-03-17] MEDS: LIDOCAINE 2%HCL (LOCAL ANESTH.) INJ 20ML MDV ONE (08:56)
--- NOTE | 2025-03-17 09:14 | DVHPN2 ---
Reviewed: Care Plan, H&P, Labs, Medications, Previous Orders, Radiology Changes from previous H/P or p: No Changes Objective Vitals Vital Signs Date Time Temp Pulse Resp B/P (MAP) Pulse Ox O2 Delivery O2 Flow Rate FiO2 03/17/25 08:00 42 13 100 Nasal Cannula* 2 28 03/17/25 08:00 98.9 124/61 (82) 98.9 Intake/Output Intake and Output 03/17/25 07:00 Intake Total 1911.753 ml Output Total 4425 ml Balance -2513.247 ml Intake Oral 200 ml IV Total 1711.753 ml Output Urine Total 4425 ml Medications Current Medications Medications Dose Ordered Sig/Lucio Route Start Time Stop Time Status Last Admin Dose Admin Nitroglycerin 0.4 mg Q5MINP PRN SL 03/15/25 20:00 Morphine Sulfate 2 mg Q30M PRN IV 03/15/25 20:00 Furosemide 40 mg BIDD PO 03/16/25 06:00 03/16/25 16:54 40 MG Ondansetron HCl 4 mg Q4HP PRN IV 03/15/25 21:45 Acetaminophen 650 mg Q6HP PRN PO 03/15/25 21:45 Dopamine HCl/ Dextrose 250 ml @ 8.513 mls/ hr Q24H IV 03/16/25 10:30 03/16/25 11:00 8.513 MLS/HR Folic Acid 1 mg/ Multivitamins 10 ml/Magnesium Sulfate 8 meq/ Thiamine HCl 100 mg/Dextrose 1,013.2 ml @ 125.001 mls/hr DAILY@1800 INJ 03/16/25 18:00 03/16/25 18:39 125.001 MLS/HR Potassium Chloride 20 meq DAILY PO 03/17/25 10:00 03/17/25 07:19 20 MEQ Sodium Chloride 1,000 ml @ 100 mls/hr Q10H IV 03/16/25 20:45 03/17/25 07:18 100 MLS/HR Potassium Chloride 100 ml @ 50 mls/hr Q2H IV 03/17/25 06:45 03/17/25 10:44 03/17/25 08:39 50 MLS/HR Laboratory Results Laboratory Tests 03/17/25 05:15 Chemistry Test 03/17/25 05:15 Calcium Level 9.3 mg/dL (8.7-10.4) Magnesium Level 2.1 mg/dL (1.6-2.6) Coagulation Test 03/17/25 05:15 Prothrombin Time 10.9 sec (9.3-11.8) Prothrombin Time INR 1.03 (0.9-1.15) Activated Partial Thromboplast Time 29.9 SEC (24.5-34.5) Urinalysis Test 03/16/25 06:41 Urine Color Light-yellow (Yellow) Urine Clarity Clear (Clear) Urine pH 6.5 (5.0-9.0) Urine Specific [place] 1.006 (1.001-1.035) Urine Protein Negative (Negative) Urine Ketones Negative (Negative) Urine Blood Negative /uL (Negative) Urine Nitrite Negative (Negative) Urine Bilirubin Negative (Negative) Urine Urobilinogen Normal mg/dL (Negative) Urine Leukocyte Esterase Negative /uL (Negative) Urine RBC <1 /hpf (0 - 3) Urine Microscopic WBC < 1 /HPF (0-3) Urine Squamous Epithelial Cells None seen /hpf (<5) Urine Bacteria None seen /hpf (None Seen) Urine Glucose Normal mg/dL (Normal) Microbiology Microbiology Date/Time Source Procedure Growth Status 03/16/25 09:04 Nose MRSA Screen - Final Complete Labs and/or images reviewed: Labs reviewed by me, Image(s) reviewed by me Assessment/Plan Assessment/Plan Acute Dizziness Acute hypokalemia potassium 2.9: Replace potassium Acute hyponatremia sodium 121: IV fluids Acute on chronic CHF exacerbation echo 55 % ejection fraction Hypertension History of atrial fibrillation Symptomatic bradycardia heart rate [address] Lomeli planning for pacemaker implantation today, on dopamine drip Time Spent 50 minutes Advanced care planning time 20 minutes Patient is full code Daughter Keyla [phone] at bedside Plan discussed with: Patient My Orders Orders - ALEXANDRO DONALD MD Procedure Category Date Status Time Folic Acid... PHA 03/16/25 In Process 18:00 Insert Ackerman Catheter MARCELLA 03/16/25 In Process 13:54 Urine Bacterial CECELIA 03/16/25 In Process Culture 13:54 *Dr. Pe[facility] CONS 03/16/25 Transmitted -[place] 13:54 Potassium Er Tablet PHA 03/17/25 In Process (Klor-Con Tablet) 10:00 Date of Service: Mar 17, 2025 Billing Provider: ALEXANDRO DONALD MD Common Visit Codes: [id number] INP/OBS CARE(HIGH) ALEXANDRO DONALD MD Mar 17, 2025 09:14
[2025-03-17] MEDS: MIDAZOLAM HCL 2MG/2ML 2ml VIAL (1mg/ml) ONE (10:08)
[2025-03-17] MEDS: fentaNYL CITRATE 100 MCG/2 ML VL ONE (10:08)
[2025-03-17] MEDS: HEPARIN SODIUM (PORCINE) 5000 UNITS/ML 1ML VIAL ONE (10:29)
[2025-03-17] MEDS: ceFAZolin 2 GM/D5W50ml 50 ML IV ONE (11:15)
--- NOTE | 2025-03-17 11:23 | DVHOP2 ---
Operative Report Date of service : 03/17/25 Procedure : Implantation of Lead less dual pacemaker, MICRA, SHAYY Indication : 1. Persistent Atrial Flutter with bradycardia, HR 30 bpm, requiring dopamine 2. Symptomatic bradycardia, dizziness 3. Normal EF 4. He has persistent Atrial fibrillation requiring blood thinner. last dose of eliquis was about 24 hours ago, Micra is definitely safer than regular pacemaker to reduce bleeding complication PROCEDURE IN DETAIL: After obtaining informed consent with explanation of risk, benefits, and alternatives, the patient agreed upon the planned procedure, implantation of lead less dual pacemaker, MICRA. Under standard fashion, local and systemic anesthetic, right groin area was prepped and draped. Right femoral vein was accessed x one, by using multiple dilators the area was upgraded to advance the MICRA delivery system which was 23. After the hemodynamics stabilize, Micra milk delivery driver was advanced over the sheet into rig ht heart. Device was delivered into mid septum with excellent sensing and pacing parameters. Impedance 730 ohms, sensing 8 mv, pacing threshold 0.65 V at 0.25 ms. The trial to assess the stability was in favor of at least three prones attached into myocardium. The system was removed and groin was secured by figure of eight. Conclusion : S/P successful implantation of lead less dual pacemaker, MICRA with lower rate 50 bpm ELADIO LOWE MD Mar 17, 2025 11:22
[2025-03-17] MEDS: POTASSIUM EFFERVESENT TAB 25 MEQ PO ONE (14:43)
[2025-03-17] MEDS: SODIUM CHLORIDE 0.9% 1,000 ML IV SCH (14:43)
[2025-03-17] MEDS: THIAMINE HCL 100 MG TAB PO ONE (15:34)
[2025-03-17] MEDS: MULTIPLE VITAMIN TAB PO ONE (15:34)
[2025-03-17] MEDS: MAGNESIUM OXIDE 400 MG TAB PO ONE (15:34)
[2025-03-17] MEDS: FOLIC ACID 1 MG TAB PO ONE (15:34)
--- NOTE | 2025-03-17 16:00 | DVHPN2 ---
Progress Note - Dictate Date Seen: Mar 17, 2025 Medical Necessity Reason Pt with a Central, PICC or Fol: No vital signs Vital Sign Date Time Temp Pulse Resp B/P (MAP) Pulse Ox O2 Delivery O2 Flow Rate FiO2 03/17/25 12:00 97.6 50 10 136/64 (88) 100 97.6 03/17/25 08:00 Nasal Cannula* 2 28 Total Intake and Output 03/16/25 03/16/25 03/17/25 15:00 23:00 07:00 Intake Total 34.052 ml 668.108 ml 1318.106 ml Output Total 2075 ml 2350 ml Balance 34.052 ml -1406.892 ml -1031.894 ml medications Current Medications Medications Dose Ordered Sig/Lucio Route Start Time Stop Time Status Last Admin Dose Admin Nitroglycerin 0.4 mg Q5MINP PRN SL 03/15/25 20:00 Morphine Sulfate 2 mg Q30M PRN IV 03/15/25 20:00 Ondansetron HCl 4 mg Q4HP PRN IV 03/15/25 21:45 Acetaminophen 650 mg Q6HP PRN PO 03/15/25 21:45 Folic Acid 1 mg/ Multivitamins 10 ml/Magnesium Sulfate 8 meq/ Thiamine HCl 100 mg/Dextrose 1,013.2 ml @ 125.001 mls/hr DAILY@1800 INJ 03/16/25 18:00 03/16/25 18:39 125.001 MLS/HR Potassium Chloride 40 meq DAILY PO 03/18/25 10:00 Cefazolin Sodium/ Dextrose 50 ml @ 50 mls/hr Q12HR IV 03/17/25 19:00 03/18/25 10:00 Sodium Chloride 1,000 ml @ 75 mls/hr [id number] IV 03/17/25 14:15 03/17/25 14:43 75 MLS/HR laboratory and microbiology Laboratory Tests 03/17/25 05:15 Test 03/17/25 05:15 Range/Units Serum Glucose 108 H 74-106 mg/dL Assessment/Plan ASSESSMENT: This is a 74-year old male who initially presented with reported dizziness and weakness. Reports indicate the patient was referred by his primary care physician due to abnormal potassium levels which upon ED arrival, potassium level had been found to be 2.9 which had been supplemented and hypokalemia itself had later resolved. Of note, upon ED arrival initial 12-lead electrocardiogram had revealed evidence for atrial flutter with a ventricular rate of 47bpm consistent with atrial fibrillation with slow ventricular response. Throughout course of present admission, patient has sustained atrial flutter with slow ventricular response with lowest documented heart rate within the 30's as confirmed by telemetry strip findings which patient had been initiated on Dopamine infusion for rate support and admitted to the [facility] for close observation/management. Initial HS troponin level was found normal at 15. TSH level was found normal at 1.84. Echocardiogram revealed a preserved LVEF of 55% with no evidence for significant valvular abnormalities. Telemetry at present time of consultation is consistent with atrial fibrillation with slow ventricular response despite continuous Dopamine infusion. Patient himself dose endorse ongoing dizziness/weakness. Recognizing the above, presentation at this point is consistent with symptomatic bradycardia for which Electrophysiology services were involved by Interventional Cardiology request to evaluate patient candidacy for potential permanent pacemaker implantation. Echocardiogram: Conclusion lvef 55%. left atrium enlarged. mild LVH. dysrhthmia noted Symptomatic bradycardia, lowest HR within 30 requiring Dopamine infusion for rate support Persistent atrial flutter with slow ventricular response, on chronic anticoagulation w/ last dose of Eliquis 03/15/2025 Preserved LVEF of 55% per Echocardiogram 02/2025 Hypokalemia, resolved Status post successful MDT lead-less Micra permanent pacemaker implantation 03/17/2025 ELECTROPHYSIOLOGY SUGGESTIONS FOR MANAGEMENT: Status post successful permanent pacemaker implantation utilizing MDT lead-less Micra device. Remains ventricular paced upon telemetry review. Plan for repeat device interrogation 03/18/2925. Dressing to cannulation site utilized for device implantation is to remain clean, dry, and intact. Plan for suture removal to cannulation site utilized for device implantation 03/18/2025. Ok to resume anticoagulation from EP perspective. Stable from EP perspective at this point. Proceed with overnight observation during the interim. Remainder of cardiac management as per Interventional Cardiology services. Will proceed to follow from an EP perspective. Proceed with close rate and rhythm surveillance Proceed with close hemodynamic surveillance Proceed with optimized blood pressure control Transfuse to sustain HGB level above 7.0 Sustain Magnesium level greater than 2.0 Sustain Potassium level greater than 4.0 Follow up renal function and electrolytes Management in [facility] Follow up health care consultant recommendations Will proceed to follow from an EP perspective Further recommendations per clinical progression All available diagnostic labs, EKG's, and images were personally reviewed Patient's status, findings, and plan of care was reviewed and discussed with supervising physician Dr. York, who is in agreement with current plan of care. Plan of care discussed with and agreed upon by patient / family / primary RN Prognosis: Guarded Thank you for allowing me to participate in the care of this patient. Further recommendations based on patients clinical course and progression, primary attending, and other consultants. Will continue to follow with primary attending. If you have any questions or concerns, please do not hesitate to contact me. A total of 75 minutes was spent reviewing the patient record, examining the patient, making a diagnostic and therapeutic plan, discussing this plan with medical personnel, following up on diagnostic studies and following the patient for clinical stability excluding any and all procedures. At least 50% of this time was spent in direct, [id number] contact. Plan discussed with: Other (patient/family/primary rn) CECELIA HERNANDEZ Mar 17, 2025 16:00
--- NOTE | 2025-03-17 16:56 | DVH ---
CHEST RADIOGRAPH Indication: s/p pacer implantation Technique: XY CHEST PORTABLE Comparison: None FINDINGS: Cardiac recording device. Aortic atherosclerotic disease The cardiac silhouette is borderline enlarged. The lungs demonstrate perihilar airspace opacities. Th e pulmonary vasculature is mildly prominent. There is no pleural effusion. There is no pneumothorax. IMPRESSION: As above
[2025-03-17] MEDS: ceFAZolin 2 GM/D5W50ml 50 ML IV SCH (18:25)
--- NOTE | 2025-03-17 19:47 | DVHCONRES ---
Date Seen: Mar 17, 2025 Resident Creating Document: GRETCHEN MCCARTHY RESIDENT History of Present Illness 74-year-old male patient with past medical history of atrial fibrillation, hypertension, CHF, bilateral lower extremity edema presented with complaints of generalized weakness. Patient went to urgent Care barium was found to have low potassium levels and was referred to ER. Patient has been taking furosemide tablets without potassium pills in the home. Patient also mentioned occasional shortness of breath. patient also mentioned dizziness and was found to be havin g bradycardia. Patient was initially started on dopamine drip and later it was discontinued and Cardiology decided to place permanent pacemaker. Patient had permanent pacemaker placement today. Nephrology was consulted for electrolyte imbalance. Patient seen and examined at bedside Mentioned no active complaint Input output last 24 hours 1.9 L/4.4 L with a net of-2.5 L Past medical history CHF Hypertension Atrial fibrillation Past surgical history No recent surgery Social history Patient denied smoking, marijuana, alcohol and dry any other drug intake Medication history Amlodipine Aspirin Plavix Lasix Losartan Metolazone Past Medical History As described in the HPI Past Surgical History As described in the HPI Allergies: Coded Allergies: NO KNOWN ALLERGIES (Unverified , 03/15/25) Home Meds Reported Medications Amlodipine Besylate (Amlodipine Besylate) 5 Mg Tab, 5 MG PO BID for 30 Days, MG 03/16/25 Losartan Potassium (Losartan Potassium) 50 Mg Tab, 50 MG PO BID for 30 Days, MG 03/16/25 Aspirin (Aspir-81) 81 Mg Tab, 1 TAB PO DAILY, #30 TAB 5 Refills 03/16/25 Cephalexin Monohydrate (Cephalexin) 500 Mg Cap, 500 MG PO TID, MG 03/16/25 Clopidogrel Bisulfate (Plavix) 75 Mg Tab, 1 TAB PO DAILY, #90 TAB 1 Refill 03/16/25 Metolazone (Metolazone) 2.5 Mg Tab, 2.5 MG PO DAILY for 30 Days, MG 03/16/25 Furosemide (Furosemide) 40 Mg Tab, 40 MG PO BIDD for 30 Days, MG 03/16/25 Current Medications Current Medications Medications (Trade) Dose Ordered Sig/Lucio Route PRN Reason Start Time Stop Time Status Last Admin Potassium Chloride (Klor-Con Tablet) 20 meq DAILY PO 03/17/25 22:00 03/16/25 16:30 DC Potassium Chloride (Klor-Con Tablet) 20 meq DAILY PO 03/17/25 10:00 03/17/25 09:14 DC 03/17/25 07:19 Sodium Chloride 1,000 ml @ 100 mls/hr Q10H IV 03/16/25 20:45 03/17/25 11:20 DC 03/17/25 07:18 Potassium Chloride 100 ml @ 50 mls/hr Q2H IV 03/17/25 06:45 03/17/25 10:44 DC 03/17/25 08:39 Potassium Chloride (Klor-Con Tablet) 40 meq DAILY PO 03/18/25 10:00 Cefazolin Sodium/ Dextrose 50 ml @ 50 mls/hr Q12HR IV 03/17/25 19:00 03/18/25 10:00 03/17/25 18:25 Sodium Chloride 1,000 ml @ 75 mls/hr [id number] IV 03/17/25 14:15 03/17/25 14:43 Folic Acid 1 mg DAILY PO 03/18/25 10:00 Multivitamins (Mvi Tab) 1 tab DAILY PO 03/18/25 10:00 Magnesium Oxide (Mag-Ox Tablet) 400 mg DAILY PO 03/18/25 10:00 Thiamine HCl 100 mg DAILY PO 03/18/25 10:00 Apixaban (Eliquis) 5 mg BID PO 03/17/25 22:00 Review of Systems As described in the HPI Vital Signs Vital Signs Date Time Temp Pulse Resp B/P (MAP) Pulse Ox O2 Delivery O2 Flow Rate FiO2 03/17/25 18:00 50 15 119/51 (73) 100 03/17/25 16:00 97.8 97.8 03/17/25 08:00 Nasal Cannula* 2 28 Physical Exam Examination General Appearance: Alert, Oriented X3, Cooperative, No acute distress HEENT: EOMI Respiratory: Clear to auscultation, Normal air movement Cardiovascular: Regular rate, Normal S1, Normal S2 Abdominal: Normal bowel sounds Extremities: Dry skin, No cyanosis, No edema, Normal pulses, No tenderness/swelling Skin: No rashes, No breakdown Neuro: Normal speech and tone Labs/Diagnostic Data Labs Test 03/17/25 05:15 03/16/25 06:41 03/15/25 21:50 03/15/25 12:50 Range/Units White Blood Count 9.8 4.4-10.8 10^3/uL Red Blood Count 4.40 L 4.5-5.90 10^6/uL Hemoglobin 14.6 13.5-17.5 g/dL Hematocrit 40.1 L 41.0-53.0 % Mean Corpuscular Volume 91.1 80.0-100.0 fL Mean Corpuscular Hemoglobin 33.2 H 28.0-32.0 pg Mean Corpuscular Hemoglobin Concent 36.4 H 32.0-36.0 g/dL Red Cell Distribution Width 13.0 11.8-14.3 % Platelet Count 190 140-450 10^3/uL Mean Platelet Volume 6.4 L 6.9-10.8 fL Neutrophils (%) (Auto) 65.1 37.0-80.0 % Lymphocytes (%) (Auto) 18.5 10.0-50.0 % Monocytes (%) (Auto) 13.6 H 0.0-12.0 % Eosinophils (%) (Auto) 1.9 0.0-7.0 % Basophils (%) (Auto) 0.9 0.0-2.0 % Neutrophils # (Auto) 6.3 1.6-8.6 10 ^3/uL Lymphocytes # (Auto) 1.8 0.4-5.4 10 ^3/uL Monocytes # (Auto) 1.3 0-1.3 10 ^3/uL Eosinophils # (Auto) 0.2 0-0.8 10 ^3/uL Basophils # (Auto) 0.1 0-0.2 10 ^3/uL Nucleated Red Blood Cells 0.0 % Prothrombin Time 10.9 9.3-11.8 sec Prothrombin Time INR 1.03 0.9-1.15 Activated Partial Thromboplast Time 29.9 24.5-34.5 SEC Sodium Level 125 L 136-145 mmol/L Potassium Level 2.7 L 3.5-5.1 mmol/L Chloride Level 84 L 98-107 mmol/L Carbon Dioxide Level 31 20-31 mmol/L Anion Gap 10 5-15 Blood Urea Nitrogen 31 H 9-23 mg/dL Creatinine 1.45 H 0.700-1.30 mg/dL Glomerular Filtration Rate Calc 51 >90 mL/min BUN/Creatinine Ratio 21.4 H 10.0-20.0 Serum Glucose 108 H 74-106 mg/dL Calcium Level 9.3 8.7-10.4 mg/dL Magnesium Level 2.1 1.6-2.6 mg/dL Urine Color Light-yellow Yellow Urine Clarity Clear Clear Urine pH 6.5 5.0-9.0 Urine Specific [place] 1.006 1.001-1.035 Urine Protein Negative Negative Urine Ketones Negative Negative Urine Blood Negative Negative /uL Urine Nitrite Negative Negative Urine Bilirubin Negative Negative Urine Urobilinogen Normal Negative mg/dL Urine Leukocyte Esterase Negative Negative /uL Urine RBC <1 0 - 3 /hpf Urine Microscopic WBC < 1 0-3 /HPF Urine Squamous Epithelial Cells None seen <5 /hpf Urine Bacteria None seen None Seen /hpf Urine Glucose Normal Normal mg/dL B-Type Natriuretic Peptide 169.44 0-100 pg/mL Thyroid Stimulating Hormone (TSH) 1.84 0.55-4.78 uIU/mL Troponin I High Sensitivity 15 </=54 ng/L Microbiology Date/Time Source Procedure Growth Status 03/16/25 14:03 Urine - [facility] [place] Urine Culture - Preliminary Resulted 03/16/25 09:04 Nose MRSA Screen - Final Complete Assessment Assessment # 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 Potassium replaced with IV potassium and oral potassium, monitor sodium and potassium levels in the morning We will start the patient on normal saline at 75 mL/hour and discontinue Lasix Case discussion with Dr. Akers Addendum Patient seen and examined, plan discussed with resident. Agree with above, we will follow closely Plan discussed with: Patient GRETCHEN MCCARTHY Mar 17, 2025 19:47 SANDRINE AKERS MD Mar 18, 2025 11:38
[2025-03-17 19:48] LABS: Hematocrit 36.0 % (41.0-53.0); Hemoglobin 13.1 g/dL (13.5-17.5)
[2025-03-17] MEDS ORDERED: ceFAZolin 2 GM/D5W50ml 50 ML IV SCH (20:30)
[2025-03-17 20:36] LABS: Anion Gap 10 (5-15); Calcium 8.7 mg/dL (8.7-10.4); Carbon Dioxide 29 mmol/L (20-31)
[2025-03-17 20:38] LABS: Chloride 88 mmol/L (98-107); Potassium 3.0 mmol/L (3.5-5.1); Sodium 127 mmol/L (136-145)
[2025-03-17 20:41] LABS: BUN/Creatinine Ratio 21.0 (10.0-20.0)
[2025-03-17 20:50] LABS: Blood Urea Nitrogen 29 mg/dL (9-23); Glucose 144 mg/dL (74-106)
[2025-03-17] MEDS: APIXABAN 5 MG TAB PO SCH (22:00)
[2025-03-17] MEDS ORDERED: POTASSIUM CHL 20 Meq TABLET PO SCH (22:00)
[2025-03-18] VITALS (27 sets, daily range): BP systolic 114–153; BP diastolic 56–91; PULSE 50–72; RESP 8–22; TEMP 97.8–99.1; O2SAT 95–100
[2025-03-18 07:00] LABS: Alanine Aminotransferase 18 U/L (7-40); Alkaline Phosphatase 47 U/L (46-116); Anion Gap 8 (5-15); BUN/Creatinine Ratio 23.4 (10.0-20.0); Blood Urea Nitrogen 22 mg/dL (9-23); Carbon Dioxide 26 mmol/L (20-31); Chloride 99 mmol/L (98-107); Glucose 94 mg/dL (74-106)
[2025-03-18] MEDS: ceFAZolin 2 GM/D5W50ml 50 ML IV SCH (07:00)
[2025-03-18 07:01] LABS: Albumin 3.0 g/dL (3.2-4.8); Bilirubin, Total 1.0 mg/dL (0.2-1.0); Calcium 7.2 mg/dL (8.7-10.4); Magnesium 1.4 mg/dL (1.6-2.6); Potassium 2.7 mmol/L (3.5-5.1); Sodium 133 mmol/L (136-145); Total Protein 5.6 g/dL (5.7-8.2)
[2025-03-18] MEDS: FOLIC ACID 1 MG TAB PO SCH (07:32)
[2025-03-18] MEDS: POTASSIUM CHL 20 Meq TABLET PO SCH (07:32)
[2025-03-18] MEDS: MAGNESIUM OXIDE 400 MG TAB PO SCH (07:32)
[2025-03-18] MEDS: THIAMINE HCL 100 MG TAB PO SCH (07:33)
[2025-03-18] MEDS: MULTIPLE VITAMIN TAB PO SCH (07:34)
[2025-03-18 08:28] LABS: Hematocrit 35.6 % (41.0-53.0); Hemoglobin 12.7 g/dL (13.5-17.5); Mean Corpuscular Hemoglobin 32.8 pg (28.0-32.0); Mean Corpuscular Volume 92.2 fL (80.0-100.0); Nucleated Red Blood Cells % 0.3 %
--- NOTE | 2025-03-18 08:43 | DVHPN2 ---
Reviewed: Care Plan, H&P, Labs, Medications, Previous Orders, Radiology Changes from previous H/P or p: No Changes Objective Vitals Vital Signs Date Time Temp Pulse Resp B/P (MAP) Pulse Ox O2 Delivery O2 Flow Rate FiO2 03/18/25 07:38 58 14 97 Room Air* 0 21 03/18/25 07:01 135/67 (89) 03/18/25 04:00 98.4 98.4 Intake/Output Intake and Output 03/18/25 07:00 Intake Total 3100.539 ml Output Total 2700 ml Balance 400.539 ml Intake Oral 1400 ml IV Total 1700.539 ml Output Urine Total 2700 ml # Bowel Movements 1 Medications Current Medications Medications Dose Ordered Sig/Lucio Route Start Time Stop Time Status Last Admin Dose Admin Nitroglycerin 0.4 mg Q5MINP PRN SL 03/15/25 20:00 Morphine Sulfate 2 mg Q30M PRN IV 03/15/25 20:00 Ondansetron HCl 4 mg Q4HP PRN IV 03/15/25 21:45 Acetaminophen 650 mg Q6HP PRN PO 03/15/25 21:45 Potassium Chloride 40 meq DAILY PO 03/18/25 10:00 03/18/25 07:32 40 MEQ Sodium Chloride 1,000 ml @ 75 mls/hr [id number] IV 03/17/25 14:15 03/18/25 01:55 75 MLS/HR Folic Acid 1 mg DAILY PO 03/18/25 10:00 03/18/25 07:32 1 MG Multivitamins 1 tab DAILY PO 03/18/25 10:00 03/18/25 07:34 1 TAB Magnesium Oxide 400 mg DAILY PO 03/18/25 10:00 03/18/25 07:32 400 MG Thiamine HCl 100 mg DAILY PO 03/18/25 10:00 03/18/25 07:33 100 MG Apixaban 5 mg BID PO 03/17/25 22:00 Cefazolin Sodium/ Dextrose 50 ml @ 50 mls/hr Q12H IV 03/18/25 07:00 03/18/25 10:00 03/18/25 07:00 50 MLS/HR Laboratory Results Laboratory Tests 03/18/25 06:21 Chemistry Test 03/17/25 19:54 03/18/25 06:21 Calcium Level 8.7 mg/dL (8.7-10.4) 7.2 mg/dL (8.7-10.4) L Albumin 3.0 g/dL (3.2-4.8) L Magnesium Level 1.4 mg/dL (1.6-2.6) L Total Protein 5.6 g/dL (5.7-8.2) L LFT Test 03/18/25 06:21 Alanine Aminotransferase (ALT) 18 U/L (7-40) Alkaline Phosphatase 47 U/L (46-116) Aspartate Amino Transferase (AST) 18 U/L (13-40) Total Bilirubin 1.0 mg/dL (0.2-1.0) Urinalysis Test 03/16/25 06:41 03/17/25 18:31 03/17/25 18:50 Urine Color Light-yellow (Yellow) Urine Clarity Clear (Clear) Urine pH 6.5 (5.0-9.0) Urine Specific [place] 1.006 (1.001-1.035) Urine Protein Negative (Negative) Urine Ketones Negative (Negative) Urine Blood Negative /uL (Negative) Urine Nitrite Negative (Negative) Urine Bilirubin Negative (Negative) Urine Urobilinogen Normal mg/dL (Negative) Urine Leukocyte Esterase Negative /uL (Negative) Urine RBC <1 /hpf (0 - 3) Urine Microscopic WBC < 1 /HPF (0-3) Urine Squamous Epithelial Cells None seen /hpf (<5) Urine Bacteria None seen /hpf (None Seen) Urine Glucose Normal mg/dL (Normal) Urine Osmolality 327 mOsm/kg Urine Creatinine 41.97 mg/dL (30.0-125.0) Urine Sodium 29 mmol/L (40-220) L Microbiology Microbiology Date/Time Source Procedure Growth Status 03/16/25 14:03 Urine - [facility] [place] Urine Culture - Preliminary Resulted 03/16/25 09:04 Nose MRSA Screen - Final Complete Labs and/or images reviewed: Labs reviewed by me, Image(s) reviewed by me Assessment/Plan Assessment/Plan Acute Dizziness Acute hypokalemia potassium 2.9: Replace potassium Acute hyponatremia sodium 121: IV fluids Acute on chronic CHF exacerbation echo 55 % ejection fraction Hypertension Chronic Current alcohol abuse: Thiamine folic acid multivitamin Librium Bilateral Lower leg infection: Ancef History of atrial fibrillation Symptomatic bradycardia heart rate 44 status post implantation of leadless pacemaker by Dr. Lomeli with heart rate of 50 Time Spent 50 minutes Advanced care planning time 20 minutes Patient is full code Daughter Keyla [phone] at bedside Plan discussed with: Patient My Orders Orders - ALEXANDRO DONALD MD Procedure Category Date Status Time Potassium Er Tablet PHA 03/18/25 In Process (Klor-Con Tablet) 10:00 Cardiac DIET 03/17/25 Transmitted Diet-2gna,Lofat,Lochol Lunch Complete Blood Count LAB 03/18/25 In Process 04:00 Folic Acid Tablet PHA 03/18/25 In Process 10:00 Multiple Vitamin PHA 03/18/25 In Process Tablet (Mvi Tab) 10:00 Magnesium Oxide PHA 03/18/25 In Process Tablet (Mag-Ox Tablet) 10:00 Thiamine Tab PHA 03/18/25 In Process 10:00 Date of Service: Mar 18, 2025 Billing Provider: ALEXANDRO DONALD MD Common Visit Codes: [id number] INP/OBS CARE(HIGH) ALEXANDRO DONALD MD Mar 18, 2025 08:43
[2025-03-18] MEDS: POTASSIUM EFFERVESENT TAB 25 MEQ PO SCH (09:34)
[2025-03-18] MEDS: SOD CHL 0.9%/ KCL 40MEQ 1,000 ML IV SCH (13:08)
--- NOTE | 2025-03-18 14:34 | DVHPN2 ---
Progress Note Date Seen: Mar 18, 2025 Medical Necessity Reason Pt with a Central, PICC or Fol: No Subjective Patient reports: No new complaints, Feels better Review of Systems: HEENT:Normal, CVS:Normal, RESPIRATORY:Normal, GI:Normal, :Normal, MSK:Normal, NEURO:Normal Objective vital signs Vital Sign Date Time Temp Pulse Resp B/P (MAP) Pulse Ox O2 Delivery O2 Flow Rate FiO2 03/18/25 13:00 63 10 144/69 (94) 99 03/18/25 12:00 98.2 98.2 03/18/25 07:38 Room Air* 0 21 Total Intake and Output 03/17/25 03/17/25 03/18/25 15:00 23:00 07:00 Intake Total 600.539 ml 1500 ml 1075 ml Output Total 1900 ml 800 ml Balance 600.539 ml -400 ml 275 ml medications Current Medications Medications Dose Ordered Sig/Lucio Route Start Time Stop Time Status Last Admin Dose Admin Nitroglycerin 0.4 mg Q5MINP PRN SL 03/15/25 20:00 Morphine Sulfate 2 mg Q30M PRN IV 03/15/25 20:00 Ondansetron HCl 4 mg Q4HP PRN IV 03/15/25 21:45 Acetaminophen 650 mg Q6HP PRN PO 03/15/25 21:45 Potassium Chloride 40 meq DAILY PO 03/18/25 10:00 03/18/25 07:32 40 MEQ Folic Acid 1 mg DAILY PO 03/18/25 10:00 03/18/25 07:32 1 MG Multivitamins 1 tab DAILY PO 03/18/25 10:00 03/18/25 07:34 1 TAB Magnesium Oxide 400 mg DAILY PO 03/18/25 10:00 03/18/25 07:32 400 MG Thiamine HCl 100 mg DAILY PO 03/18/25 10:00 03/18/25 07:33 100 MG Apixaban 5 mg BID PO 03/17/25 22:00 Potassium Bicarbonate 50 meq BID PO 03/18/25 10:00 03/18/25 09:34 50 MEQ Chlordiazepoxide HCl 25 mg Q6HR PO 03/18/25 12:00 03/18/25 09:34 25 MG Potassium Chloride/Sodium Chloride 1,000 ml @ 75 mls/hr [id number] IV 03/18/25 11:45 03/18/25 13:08 75 MLS/HR Examination: GENERAL:Normal, HEENT:Normal, NECK:Normal, LUNGS:Normal, CVS:Abnormal, ABDOMEN:Normal, MSK:Normal, SKIN:Normal, NEURO:Normal, :Normal laboratory and microbiology Laboratory Tests 03/18/25 06:21 Test 03/18/25 06:21 Range/Units Serum Glucose 94 74-106 mg/dL Microbiology Date/Time Source Procedure Growth Status 03/16/25 14:03 Urine - [facility] [place] Urine Culture - Final Complete 03/16/25 09:04 Nose MRSA Screen - Final Complete Problem List/Assessment/Plan Problem List/Assessment/Plan # 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
--- NOTE | 2025-03-18 18:23 | DVHPN2 ---
Progress Note - Dictate Date Seen: Mar 18, 2025 Medical Necessity Reason Pt with a Central, PICC or Fol: No Subjective Patient seen and examined at the bedside within [facility]. Micra implantation access site at the right groin demonstrated a clean, dry, and intact dressing with no active bleeding or signs of infection. Verbal order given to remove suture. Vital signs stable. Chart reviewed. Patient's medications, allergies, past medical, surgical, social and family histories were obtained and reviewed as appropriate. Device interrogation performed on 03/18/2025 demonstrated stable function of a [employer] Micra AV2 pacemaker implanted on 03/17/2025. Battery longevity is estimated at >10 years with appropriate RV lead parameters. The device is programmed in VVI mode with a lower rate of 50 bpm. Pacing data showed ventricular pacing at 38%, with no abnormal findings noted. vital signs Vital Sign Date Time Temp Pulse Resp B/P (MAP) Pulse Ox O2 Delivery O2 Flow Rate FiO2 03/18/25 18:00 98.3 58 14 143/66 (91) 97 98.3 03/18/25 07:38 Room Air* 0 21 Total Intake and Output 03/17/25 03/17/25 03/18/25 15:00 23:00 07:00 Intake Total 600.539 ml 1500 ml 1075 ml Output Total 1900 ml 800 ml Balance 600.539 ml -400 ml 275 ml medications Current Medications Medications Dose Ordered Sig/Lucio Route Start Time Stop Time Status Last Admin Dose Admin Nitroglycerin 0.4 mg Q5MINP PRN SL 03/15/25 20:00 Morphine Sulfate 2 mg Q30M PRN IV 03/15/25 20:00 Ondansetron HCl 4 mg Q4HP PRN IV 03/15/25 21:45 Acetaminophen 650 mg Q6HP PRN PO 03/15/25 21:45 Potassium Chloride 40 meq DAILY PO 03/18/25 10:00 03/18/25 07:32 40 MEQ Folic Acid 1 mg DAILY PO 03/18/25 10:00 03/18/25 07:32 1 MG Multivitamins 1 tab DAILY PO 03/18/25 10:00 03/18/25 07:34 1 TAB Magnesium Oxide 400 mg DAILY PO 03/18/25 10:00 03/18/25 07:32 400 MG Thiamine HCl 100 mg DAILY PO 03/18/25 10:00 03/18/25 07:33 100 MG Apixaban 5 mg BID PO 03/17/25 22:00 Potassium Bicarbonate 50 meq BID PO 03/18/25 10:00 03/18/25 09:34 50 MEQ Chlordiazepoxide HCl 25 mg Q6HR PO 03/18/25 12:00 03/18/25 09:34 25 MG Potassium Chloride/Sodium Chloride 1,000 ml @ 75 mls/hr [id number] IV 03/18/25 11:45 03/18/25 13:08 75 MLS/HR objective Heart: S1 and S2 present. The patient is in sinus rhythm. Lungs: Clear to auscultation Abdomen: Benign. Extremities: Distal pulses palpable, 2+. No evidence for peripheral edema laboratory and microbiology Laboratory Tests 03/18/25 06:21 Test 03/18/25 06:21 Range/Units Serum Glucose 94 74-106 mg/dL Assessment/Plan ASSESSMENT: This is a 74-year old male who initially presented with reported dizziness and weakness. Reports indicate the patient was referred by his primary care physician due to abnormal potassium levels which upon ED arrival, potassium level had been found to be 2.9 which had been supplemented and hypokalemia itself had later resolved. Of note, upon ED arrival initial 12-lead electrocardiogram had revealed evidence for atrial flutter with a ventricular rate of 47bpm consistent with atrial fibrillation with slow ventricular response. Throughout course of present admission, patient has sustained atrial flutter with slow ventricular response with lowest documented heart rate within the 30's as confirmed by telemetry strip findings which patient had been initiated on Dopamine infusion for rate support and admitted to the [facility] for close observation/management. Initial HS troponin level was found normal at 15. TSH level was found normal at 1.84. Echocardiogram revealed a preserved LVEF of 55% with no evidence for significant valvular abnormalities. Telemetry at present time of consultation is consistent with atrial fibrillation with slow ventricular response despite continuous Dopamine infusion. Patient himself dose endorse ongoing dizziness/weakness. Recognizing the above, presentation at this point is consistent with symptomatic bradycardia for which Electrophysiology services were involved by Interventional Cardiology request to evaluate patient candidacy for potential permanent pacemaker implantation. Echocardiogram: Conclusion lvef 55%. left atrium enlarged. mild LVH. dysrhthmia noted Symptomatic bradycardia, lowest HR within 30 requiring Dopamine infusion for rate support Persistent atrial flutter with slow ventricular response, on chronic anticoagulation w/ last dose of Eliquis 03/15/2025 Preserved LVEF of 55% per Echocardiogram 02/2025 Hypokalemia, resolved Status post successful MDT lead-less Micra permanent pacemaker implantation 03/17/2025 ELECTROPHYSIOLOGY SUGGESTIONS FOR MANAGEMENT: Status post successful permanent pacemaker implantation utilizing MDT lead-less Micra device. Remains ventricular paced upon telemetry review. Plan for repeat device interrogation 03/18/2925. Dressing to cannulation site utilized for device implantation is to remain clean, dry, and intact. Plan for suture removal to cannulation site utilized for device implantation 03/18/2025. Ok to resume anticoagulation from EP perspective. Stable from EP perspective at this point. Proceed with overnight observation during the interim. Remainder of cardiac management as per Interventional Cardiology services. Will proceed to follow from an EP perspective. Proceed with close rate and rhythm surveillance Proceed with close hemodynamic surveillance Proceed with optimized blood pressure control Transfuse to sustain HGB level above 7.0 Sustain Magnesium level greater than 2.0 Sustain Potassium level greater than 4.0 Follow up renal function and electrolytes Management in [facility] Follow up consultant intern recommendations Will proceed to follow from an EP perspective Further recommendations per clinical progression All available diagnostic labs, EKG's, and images were personally reviewed Patient's status, findings, and plan of care was reviewed and discussed with supervising physician Dr. York, who is in agreement with current plan of care. Plan of care discussed with and agreed upon by patient / family / primary RN Prognosis: Guarded Thank you for allowing me to participate in the care of this patient. Further recommendations based on patients clinical course and progression, primary attending, and other consultants. Will continue to follow with primary attending. If you have any questions or concerns, please do not hesitate to contact me. A total of 75 minutes was spent reviewing the patient record, examining the patient, making a diagnostic and therapeutic plan, discussing this plan with medical personnel, following up on diagnostic studies and following the patient for clinical stability excluding any and all procedures. At least 50% of this time was spent in direct, [id number] contact. Plan discussed with: Other (Primary RN ) LOPEZ APARICIO NP Mar 18, 2025 18:23
[2025-03-19] VITALS (25 sets, daily range): BP systolic 122–157; BP diastolic 52–72; PULSE 42–69; RESP 10–27; TEMP 97.6–99.8; O2SAT 95–100
[2025-03-19 07:09] LABS: Anion Gap 7 (5-15); Carbon Dioxide 27 mmol/L (20-31); Chloride 99 mmol/L (98-107); Potassium 4.7 mmol/L (3.5-5.1)
[2025-03-19 07:10] LABS: Calcium 9.1 mg/dL (8.7-10.4)
[2025-03-19 07:15] LABS: BUN/Creatinine Ratio 20.4 (10.0-20.0); Blood Urea Nitrogen 19 mg/dL (9-23); Glucose 93 mg/dL (74-106)
[2025-03-19 07:31] LABS: Sodium 133 mmol/L (136-145)
--- NOTE | 2025-03-19 08:29 | DVHPN2 ---
Progress Note Date Seen: Mar 19, 2025 Medical Necessity Reason Pt with a Central, PICC or Fol: No Subjective Patient reports: Feels better Review of Systems: HEENT:Normal, CVS:Normal, RESPIRATORY:Normal, GI:Normal, :Normal, MSK:Normal, NEURO:Normal Objective vital signs Vital Sign Date Time Temp Pulse Resp B/P (MAP) Pulse Ox O2 Delivery O2 Flow Rate FiO2 03/19/25 06:00 51 17 99 03/19/25 04:00 97.6 97.6 03/18/25 20:00 Room Air* 0 21 Total Intake and Output 03/18/25 03/18/25 03/19/25 15:00 23:00 07:00 Intake Total 600 ml 675 ml 600 ml Output Total 2150 ml 700 ml Balance 600 ml -1475 ml -100 ml medications Current Medications Medications Dose Ordered Sig/Lucio Route Start Time Stop Time Status Last Admin Dose Admin Nitroglycerin 0.4 mg Q5MINP PRN SL 03/15/25 20:00 Morphine Sulfate 2 mg Q30M PRN IV 03/15/25 20:00 Ondansetron HCl 4 mg Q4HP PRN IV 03/15/25 21:45 Acetaminophen 650 mg Q6HP PRN PO 03/15/25 21:45 Potassium Chloride 40 meq DAILY PO 03/18/25 10:00 03/18/25 07:32 40 MEQ Folic Acid 1 mg DAILY PO 03/18/25 10:00 03/18/25 07:32 1 MG Multivitamins 1 tab DAILY PO 03/18/25 10:00 03/18/25 07:34 1 TAB Magnesium Oxide 400 mg DAILY PO 03/18/25 10:00 03/18/25 07:32 400 MG Thiamine HCl 100 mg DAILY PO 03/18/25 10:00 03/18/25 07:33 100 MG Apixaban 5 mg BID PO 03/17/25 22:00 Potassium Bicarbonate 50 meq BID PO 03/18/25 10:00 03/18/25 23:04 50 MEQ Chlordiazepoxide HCl 25 mg Q6HR PO 03/18/25 12:00 03/19/25 06:47 25 MG laboratory and microbiology Laboratory Tests 03/19/25 06:16 03/18/25 06:21 Test 03/19/25 06:16 Range/Units Serum Glucose 93 74-106 mg/dL Microbiology Date/Time Source Procedure Growth Status 03/16/25 14:03 Urine - [facility] [place] Urine Culture - Final Complete 03/16/25 09:04 Nose MRSA Screen - Final Complete Problem List/Assessment/Plan Problem List/Assessment/Plan # WIL due to hemodynamically mediated--resolved # hyponatremia, likely hypovolemic due to diuretic use # hypokalemia likely due to diuretic use # symptomatic bradycardia status post pacemaker implantation # hypertension # history of AFib Plan/Recommendation dc ivf Renal function better potassium better sodium improving Plan discussed with: Patient SANDRINE ALANIS MD Mar 19, 2025 08:29
--- NOTE | 2025-03-19 10:01 | DVHPN2 ---
Reviewed: Care Plan, H&P, Labs, Medications, Previous Orders, Radiology Changes from previous H/P or p: No Changes Objective Vitals Vital Signs Date Time Temp Pulse Resp B/P (MAP) Pulse Ox O2 Delivery O2 Flow Rate FiO2 03/19/25 09:00 60 13 127/70 (89) 99 03/19/25 08:00 Room Air* 0 21 03/19/25 08:00 98.4 98.4 Intake/Output Intake and Output 03/19/25 07:00 Intake Total 1875 ml Output Total 2850 ml Balance -975 ml Intake Oral 300 ml IV Total 1575 ml Output Urine Total 2850 ml # Bowel Movements 3 Medications Current Medications Medications Dose Ordered Sig/Lucio Route Start Time Stop Time Status Last Admin Dose Admin Nitroglycerin 0.4 mg Q5MINP PRN SL 03/15/25 20:00 Morphine Sulfate 2 mg Q30M PRN IV 03/15/25 20:00 Ondansetron HCl 4 mg Q4HP PRN IV 03/15/25 21:45 Acetaminophen 650 mg Q6HP PRN PO 03/15/25 21:45 Potassium Chloride 40 meq DAILY PO 03/18/25 10:00 03/18/25 07:32 40 MEQ Folic Acid 1 mg DAILY PO 03/18/25 10:00 03/18/25 07:32 1 MG Multivitamins 1 tab DAILY PO 03/18/25 10:00 03/18/25 07:34 1 TAB Magnesium Oxide 400 mg DAILY PO 03/18/25 10:00 03/18/25 07:32 400 MG Thiamine HCl 100 mg DAILY PO 03/18/25 10:00 03/18/25 07:33 100 MG Apixaban 5 mg BID PO 03/17/25 22:00 Potassium Bicarbonate 50 meq BID PO 03/18/25 10:00 03/18/25 23:04 50 MEQ Chlordiazepoxide HCl 25 mg Q6HR PO 03/18/25 12:00 03/19/25 06:47 25 MG Laboratory Results Laboratory Tests 03/18/25 06:21 03/19/25 06:16 Chemistry Test 03/19/25 06:16 Calcium Level 9.1 mg/dL (8.7-10.4) Urinalysis Test 03/16/25 06:41 03/17/25 18:31 03/17/25 18:50 Urine Color Light-yellow (Yellow) Urine Clarity Clear (Clear) Urine pH 6.5 (5.0-9.0) Urine Specific [place] 1.006 (1.001-1.035) Urine Protein Negative (Negative) Urine Ketones Negative (Negative) Urine Blood Negative /uL (Negative) Urine Nitrite Negative (Negative) Urine Bilirubin Negative (Negative) Urine Urobilinogen Normal mg/dL (Negative) Urine Leukocyte Esterase Negative /uL (Negative) Urine RBC <1 /hpf (0 - 3) Urine Microscopic WBC < 1 /HPF (0-3) Urine Squamous Epithelial Cells None seen /hpf (<5) Urine Bacteria None seen /hpf (None Seen) Urine Glucose Normal mg/dL (Normal) Urine Osmolality 327 mOsm/kg Urine Creatinine 41.97 mg/dL (30.0-125.0) Urine Sodium 29 mmol/L (40-220) L Microbiology Microbiology Date/Time Source Procedure Growth Status 03/16/25 14:03 Urine - [place] Urine Culture - Final Complete 03/16/25 09:04 Nose MRSA Screen - Final Complete Labs and/or images reviewed: Labs reviewed by me, Image(s) reviewed by me Assessment/Plan Assessment/Plan Acute Dizziness Acute hypokalemia potassium 2.9: Replace potassium Acute hyponatremia sodium 121: IV fluids Acute on chronic CHF exacerbation echo 55 % ejection fraction Hypertension Chronic Current alcohol abuse: Thiamine folic acid multivitamin Librium Bilateral Lower leg infection: Ancef History of atrial fibrillation Symptomatic bradycardia heart rate 44 status post implantation of leadless pacemaker by Dr. Lomeli with heart rate of 50, heart rate is sometimes going down to 20's Dr. Urias nurse practitioner following Time Spent 70 minutes Advanced care planning time 20 minutes Patient is full code Daughter Keyla [phone] at bedside Plan discussed with: Patient, Daughter, Other (RN Sneha) Date of Service: Mar 19, 2025 Billing Provider: ALEXANDRO DONALD MD Common Visit Codes: [id number] CARE 30-74 MIN ALEXANDRO DONALD MD Mar 19, 2025 10:01
--- NOTE | 2025-03-19 14:22 | DVHPN2 ---
Progress Note - Dictate Date Seen: Mar 19, 2025 Medical Necessity Reason Pt with a Central, PICC or Fol: No Subjective Patient seen and examined at the bedside within [facility]. Micra implantation access site at the right groin demonstrated a clean, dry, and intact dressing with no active bleeding or signs of infection. Sinus isra on telemetry. Patient denies chest pain, shortness of breath, palpitations, dizziness, orthopnea or paroxysmal nocturnal dyspnea. Chart reviewed. Patient's medications, allergies, past medical, surgical, social and family histories were obtained and reviewed as appropriate. Device interrogation performed on 03/18/2025 demonstrated stable function of a Medtronic Micra AV2 pacemaker implanted on 03/17/2025. Battery longevity is estimated at >10 years with appropriate RV lead parameters. The device is programmed in VVI mode with a lower rate of 50 bpm. Pacing data showed ventricular pacing at 38%, with no abnormal findings noted. vital signs Vital Sign Date Time Temp Pulse Resp B/P (MAP) Pulse Ox O2 Delivery O2 Flow Rate FiO2 03/19/25 12:00 97.8 49 19 142/63 (89) 95 97.8 03/19/25 08:00 Room Air* 0 21 Total Intake and Output 03/18/25 03/18/25 03/19/25 15:00 23:00 07:00 Intake Total 600 ml 675 ml 600 ml Output Total 2150 ml 700 ml Balance 600 ml -1475 ml -100 ml medications Current Medications Medications Dose Ordered Sig/Lucio Route Start Time Stop Time Status Last Admin Dose Admin Nitroglycerin 0.4 mg Q5MINP PRN SL 03/15/25 20:00 Morphine Sulfate 2 mg Q30M PRN IV 03/15/25 20:00 Ondansetron HCl 4 mg Q4HP PRN IV 03/15/25 21:45 Acetaminophen 650 mg Q6HP PRN PO 03/15/25 21:45 Folic Acid 1 mg DAILY PO 03/18/25 10:00 03/19/25 10:33 1 MG Multivitamins 1 tab DAILY PO 03/18/25 10:00 03/19/25 10:33 1 TAB Magnesium Oxide 400 mg DAILY PO 03/18/25 10:00 03/19/25 10:33 400 MG Thiamine HCl 100 mg DAILY PO 03/18/25 10:00 03/19/25 10:33 100 MG Apixaban 5 mg BID PO 03/17/25 22:00 Potassium Bicarbonate 50 meq BID PO 03/18/25 10:00 03/19/25 10:32 50 MEQ Chlordiazepoxide HCl 25 mg Q6HR PO 03/18/25 12:00 03/19/25 12:47 25 MG objective Heart: S1 and S2 present. The patient is in sinus rhythm. Lungs: Clear to auscultation Abdomen: Benign. Extremities: Distal pulses palpable, 2+. No evidence for peripheral edema laboratory and microbiology Laboratory Tests 03/19/25 06:16 03/18/25 06:21 Test 03/19/25 06:16 Range/Units Serum Glucose 93 74-106 mg/dL Assessment/Plan ASSESSMENT: This is a 74-year old male who initially presented with reported dizziness and weakness. Reports indicate the patient was referred by his primary care physician due to abnormal potassium levels which upon ED arrival, potassium level had been found to be 2.9 which had been supplemented and hypokalemia itself had later resolved. Of note, upon ED arrival initial 12-lead electrocardiogram had revealed evidence for atrial flutter with a ventricular rate of 47bpm consistent with atrial fibrillation with slow ventricular response. Throughout course of present admission, patient has sustained atrial flutter with slow ventricular response with lowest documented heart rate within the 30's as confirmed by telemetry strip findings which patient had been initiated on Dopamine infusion for rate support and admitted to the [facility] for close observation/management. Initial HS troponin level was found normal at 15. TSH level was found normal at 1.84. Echocardiogram revealed a preserved LVEF of 55% with no evidence for significant valvular abnormalities. Telemetry at present time of consultation is consistent with atrial fibrillation with slow ventricular response despite continuous Dopamine infusion. Patient himself dose endorse ongoing dizziness/weakness. Recognizing the above, presentation at this point is consistent with symptomatic bradycardia for which Electrophysiology services were involved by Interventional Cardiology request to evaluate patient candidacy for potential permanent pacemaker implantation. Echocardiogram: Conclusion lvef 55%. left atrium enlarged. mild LVH. dysrhthmia noted Symptomatic bradycardia, lowest HR within 30 requiring Dopamine infusion for rate support Persistent atrial flutter with slow ventricular response, on chronic anticoagulation w/ last dose of Eliquis 03/15/2025 Preserved LVEF of 55% per Echocardiogram 02/2025 Hypokalemia, resolved Status post successful MDT lead-less Micra permanent pacemaker implantation 03/17/2025 ELECTROPHYSIOLOGY SUGGESTIONS FOR MANAGEMENT: Status post successful permanent pacemaker implantation utilizing MDT lead-less Micra device. Remains ventricular paced upon telemetry review. Plan for repeat device interrogation 03/18/2925. Dressing to cannulation site utilized for device implantation is to remain clean, dry, and intact. Plan for suture removal to cannulation site utilized for device implantation 03/18/2025. Ok to resume anticoagulation from EP perspective. Stable from EP perspective at this point. Proceed with overnight observation during the interim. Remainder of cardiac management as per Interventional Cardiology services. Will proceed to follow from an EP perspective. Proceed with close rate and rhythm surveillance Proceed with close hemodynamic surveillance Proceed with optimized blood pressure control Transfuse to sustain HGB level above 7.0 Sustain Magnesium level greater than 2.0 Sustain Potassium level greater than 4.0 Follow up renal function and electrolytes Management in [facility] Follow up oracle adf consultant recommendations Will proceed to follow from an EP perspective Further recommendations per clinical progression All available diagnostic labs, EKG's, and images were personally reviewed Patient's status, findings, and plan of care was reviewed and discussed with supervising physician Dr. York, who is in agreement with current plan of care. Plan of care discussed with and agreed upon by patient / family / primary RN Prognosis: Guarded Thank you for allowing me to participate in the care of this patient. Further recommendations based on patients clinical course and progression, primary attending, and other consultants. Will continue to follow with primary attending. If you have any questions or concerns, please do not hesitate to contact me. A total of 75 minutes was spent reviewing the patient record, examining the patient, making a diagnostic and therapeutic plan, discussing this plan with medical personnel, following up on diagnostic studies and following the patient for clinical stability excluding any and all procedures. At least 50% of this time was spent in direct, [id number] contact. Plan discussed with: Other (Primary RN) LOPEZ APARICIO NP Mar 19, 2025 14:22
--- NOTE | 2025-03-19 16:25 | DVH ---
XY CHEST PORTABLE, HISTORY: S/p micra, verify placement COMPARISON: XY CHEST PORTABLE on DOS: 03/17/25, XY CHEST PORTABLE on DOS: 03/15/25 XY CHEST PORTABLE on DOS: 03/17/25, XY CHEST PORTABLE on DOS: 03/15/25 TECHNICAL DATA: 1 view of the chest was obtained. FINDINGS: Lines and tubes: Stable small cardiac pacer seen. Cardiomediastinal silhouette: normal Pulmonary vasculature: normal Lung expansion: normal Lung airspace: normal Lung interstitium: normal Pleura: normal Pneumothorax: no Bones: Unremarkable Other: no IMPRESSION: No acute intrathoracic abnormality. Stable small cardiac pacer seen.
[2025-03-20] VITALS (72 sets, daily range): BP systolic 102–156; BP diastolic 34–95; PULSE 35–73; RESP 13–29; TEMP 97.8–98.6; O2SAT 88–99
[2025-03-20 07:02] LABS: Hematocrit 34.3 % (41.0-53.0); Hemoglobin 12.3 g/dL (13.5-17.5); Mean Corpuscular Hemoglobin 33.9 pg (28.0-32.0); Mean Corpuscular Volume 94.2 fL (80.0-100.0); Nucleated Red Blood Cells % 0.1 %
[2025-03-20 07:05] LABS: Alanine Aminotransferase 16 U/L (7-40); Albumin 3.6 g/dL (3.2-4.8); Alkaline Phosphatase 51 U/L (46-116); Anion Gap 7 (5-15); BUN/Creatinine Ratio 18.9 (10.0-20.0); Blood Urea Nitrogen 18 mg/dL (9-23); Calcium 9.0 mg/dL (8.7-10.4); Carbon Dioxide 26 mmol/L (20-31); Chloride 100 mmol/L (98-107); Glucose 94 mg/dL (74-106); Potassium 4.7 mmol/L (3.5-5.1); Total Protein 6.7 g/dL (5.7-8.2)
[2025-03-20 07:06] LABS: Bilirubin, Total 0.9 mg/dL (0.2-1.0)
--- NOTE | 2025-03-20 07:16 | DVHPN2 ---
Progress Note - Dictate Date Seen: Mar 20, 2025 Medical Necessity Reason Pt with a Central, PICC or Fol: No vital signs Vital Sign Date Time Temp Pulse Resp B/P (MAP) Pulse Ox O2 Delivery O2 Flow Rate FiO2 03/20/25 04:00 49 03/19/25 20:00 98.7 27 129/66 (87) 100 98.7 03/19/25 20:00 Room Air* 0 21 Total Intake and Output 03/19/25 03/19/25 03/20/25 15:00 23:00 07:00 Intake Total 500 ml 250 ml Output Total 1250 ml 1125 ml Balance -750 ml -875 ml medications Current Medications Medications Dose Ordered Sig/Lucio Route Start Time Stop Time Status Last Admin Dose Admin Nitroglycerin 0.4 mg Q5MINP PRN SL 03/15/25 20:00 Morphine Sulfate 2 mg Q30M PRN IV 03/15/25 20:00 Ondansetron HCl 4 mg Q4HP PRN IV 03/15/25 21:45 Acetaminophen 650 mg Q6HP PRN PO 03/15/25 21:45 Folic Acid 1 mg DAILY PO 03/18/25 10:00 03/19/25 10:33 1 MG Multivitamins 1 tab DAILY PO 03/18/25 10:00 03/19/25 10:33 1 TAB Magnesium Oxide 400 mg DAILY PO 03/18/25 10:00 03/19/25 10:33 400 MG Thiamine HCl 100 mg DAILY PO 03/18/25 10:00 03/19/25 10:33 100 MG Apixaban 5 mg BID PO 03/17/25 22:00 Chlordiazepoxide HCl 25 mg Q6HR PO 03/18/25 12:00 03/20/25 00:30 25 MG laboratory and microbiology Test 03/20/25 05:59 Range/Units Serum Glucose Pending Assessment/Plan ASSESSMENT: This is a 74-year old male who initially presented with reported dizziness and weakness. Reports indicate the patient was referred by his primary care physician due to abnormal potassium levels which upon ED arrival, potassium level had been found to be 2.9 which had been supplemented and hypokalemia itself had later resolved. Of note, upon ED arrival initial 12-lead electrocardiogram had revealed evidence for atrial flutter with a ventricular rate of 47bpm consistent with atrial fibrillation with slow ventricular response. Throughout course of present admission, patient has sustained atrial flutter with slow ventricular response with lowest documented heart rate within the 30's as confirmed by telemetry strip findings which patient had been initiated on Dopamine infusion for rate support and admitted to the [facility] for close observation/management. Initial HS troponin level was found normal at 15. TSH level was found normal at 1.84. Echocardiogram revealed a preserved LVEF of 55% with no evidence for significant valvular abnormalities. Telemetry at present time of consultation is consistent with atrial fibrillation with slow ventricular response despite continuous Dopamine infusion. Patient himself dose endorse ongoing dizziness/weakness. Recognizing the above, presentation at this point is consistent with symptomatic bradycardia for which Electrophysiology services were involved by Interventional Cardiology request to evaluate patient candidacy for potential permanent pacemaker implantation. Echocardiogram: Conclusion lvef 55%. left atrium enlarged. mild LVH. dysrhthmia noted Symptomatic bradycardia, lowest HR within 30 requiring Dopamine infusion for rate support Persistent atrial flutter with slow ventricular response, on chronic ant icoagulation w/ last dose of Eliquis 03/15/2025 Preserved LVEF of 55% per Echocardiogram 02/2025 Hypokalemia, resolved Status post successful MDT lead-less Micra permanent pacemaker implantation 03/17/2025 ELECTROPHYSIOLOGY SUGGESTIONS FOR MANAGEMENT: Status post successful permanent pacemaker implantation utilizing MDT lead-less Micra device. Remains ventricular paced upon telemetry review. Device interrogation performed on 03/18/2025 demonstrated stable function of a Medtronic Micra AV2 pacemaker implanted on 03/17/2025. Battery longevity is estimated at >10 years with appropriate RV lead parameters. The device is programmed in VVI mode with a lower rate of 50 bpm. Pacing data showed ventricular pacing at 38%, with no abnormal findings noted. Anticoagulation resumed. Stable from EP perspective at this point. Remainder of cardiac management as per Interventional Cardiology services. Will proceed to follow from an EP perspective. Proceed with close rate and rhythm surveillance Proceed with close hemodynamic surveillance Proceed with optimized blood pressure control Transfuse to sustain HGB level above 7.0 Sustain Magnesium level greater than 2.0 Sustain Potassium level greater than 4.0 Follow up renal function and electrolytes Management in [facility] Follow up financial analysis consultant recommendations Will proceed to follow from an EP perspective Further recommendations per clinical progression All available diagnostic labs, EKG's, and images were personally reviewed Patient's status, findings, and plan of care was reviewed and discussed with supervising physician Dr. York, who is in agreement with current plan of care. Plan of care discussed with and agreed upon by patient / family / primary RN Prognosis: Guarded Thank you for allowing me to participate in the care of this patient. Further recommendations based on patients clinical course and progression, primary attending, and other consultants. Will continue to follow with primary attending. If you have any questions or concerns, please do not hesitate to contact me. A total of 75 minutes was spent reviewing the patient record, examining the pat ient, making a diagnostic and therapeutic plan, discussing this plan with medical personnel, following up on diagnostic studies and following the patient for clinical stability excluding any and all procedures. At least 50% of this time was spent in direct, [id number] contact. Plan discussed with: Patient (patient and primary rn ) DAVIDCECELIAARTURO MCKNIGHT Mar 20, 2025 07:16
[2025-03-20 07:49] LABS: Sodium 133 mmol/L (136-145)
--- NOTE | 2025-03-20 08:16 | DVHPN2 ---
Progress Note Date Seen: Mar 20, 2025 Medical Necessity Reason Pt with a Central, PICC or Fol: No Subjective Patient reports: No new complaints Review of Systems: Deferred Objective vital signs Vital Sign Date Time Temp Pulse Resp B/P (MAP) Pulse Ox O2 Delivery O2 Flow Rate FiO2 03/20/25 08:01 70 22 154/95 (114) 96 03/20/25 04:01 98.6 98.6 03/19/25 20:00 Room Air* 0 21 Total Intake and Output 03/19/25 03/19/25 03/20/25 15:00 23:00 07:00 Intake Total 500 ml 250 ml Output Total 1250 ml 1125 ml Balance -750 ml -875 ml medications Current Medications Medications Dose Ordered Sig/Lucio Route Start Time Stop Time Status Last Admin Dose Admin Nitroglycerin 0.4 mg Q5MINP PRN SL 03/15/25 20:00 Morphine Sulfate 2 mg Q30M PRN IV 03/15/25 20:00 Ondansetron HCl 4 mg Q4HP PRN IV 03/15/25 21:45 Acetaminophen 650 mg Q6HP PRN PO 03/15/25 21:45 Folic Acid 1 mg DAILY PO 03/18/25 10:00 03/19/25 10:33 1 MG Multivitamins 1 tab DAILY PO 03/18/25 10:00 03/19/25 10:33 1 TAB Magnesium Oxide 400 mg DAILY PO 03/18/25 10:00 03/19/25 10:33 400 MG Thiamine HCl 100 mg DAILY PO 03/18/25 10:00 03/19/25 10:33 100 MG Apixaban 5 mg BID PO 03/17/25 22:00 Chlordiazepoxide HCl 25 mg Q6HR PO 03/18/25 12:00 03/20/25 07:00 25 MG Examination: GENERAL:Normal, HEENT:Normal, NECK:Normal, LUNGS:Normal, CVS:Normal, ABDOMEN:Normal, MSK:Normal, SKIN:Normal, NEURO:Normal, :Normal laboratory and microbiology Laboratory Tests 03/20/25 05:59 Test 03/20/25 05:59 Range/Units Serum Glucose 94 74-106 mg/dL Microbiology Date/Time Source Procedure Growth Status 03/16/25 14:03 Urine - [place] Urine Culture - Final Complete 03/16/25 09:04 Nose MRSA Screen - Final Complete Problem List/Assessment/Plan Problem List/Assessment/Plan # WIL due to hemodynamically mediated--resolved # hyponatremia, likely hypovolemic due to diuretic use # hypokalemia likely due to diuretic use # symptomatic bradycardia status post pacemaker implantation # hypertension # history of AFib Plan/Recommendation dc ivf Renal function better potassium better sodium improving will sign off the case/pls reconsult if needed Plan discussed with: Patient SANDRINE ALANIS MD Mar 20, 2025 08:16
--- NOTE | 2025-03-20 11:01 | DVHPN2 ---
Reviewed: Care Plan, H&P, Labs, Medications, Previous Orders, Radiology Changes from previous H/P or p: No Changes Objective Vitals Vital Signs Date Time Temp Pulse Resp B/P (MAP) Pulse Ox O2 Delivery O2 Flow Rate FiO2 03/20/25 08:01 70 22 154/95 (114) 96 03/20/25 08:00 Room Air* 0 21 03/20/25 07:45 97.9 97.9 Intake/Output Intake and Output 03/20/25 07:00 Intake Total 750 ml Output Total 2375 ml Balance -1625 ml Intake Oral 750 ml Output Urine Total 2375 ml # Bowel Movements 4 Medications Current Medications Medications Dose Ordered Sig/Lucio Route Start Time Stop Time Status Last Admin Dose Admin Nitroglycerin 0.4 mg Q5MINP PRN SL 03/15/25 20:00 Morphine Sulfate 2 mg Q30M PRN IV 03/15/25 20:00 Ondansetron HCl 4 mg Q4HP PRN IV 03/15/25 21:45 Acetaminophen 650 mg Q6HP PRN PO 03/15/25 21:45 Folic Acid 1 mg DAILY PO 03/18/25 10:00 03/20/25 10:33 1 MG Multivitamins 1 tab DAILY PO 03/18/25 10:00 03/20/25 10:32 1 TAB Magnesium Oxide 400 mg DAILY PO 03/18/25 10:00 03/20/25 10:33 400 MG Thiamine HCl 100 mg DAILY PO 03/18/25 10:00 03/20/25 10:32 100 MG Apixaban 5 mg BID PO 03/17/25 22:00 03/20/25 10:34 5 MG Chlordiazepoxide HCl 25 mg Q6HR PO 03/18/25 12:00 03/20/25 07:00 25 MG Laboratory Results Laboratory Tests 03/20/25 05:59 Chemistry Test 03/20/25 05:59 Albumin 3.6 g/dL (3.2-4.8) Calcium Level 9.0 mg/dL (8.7-10.4) Total Protein 6.7 g/dL (5.7-8.2) LFT Test 03/20/25 05:59 Alanine Aminotransferase (ALT) 16 U/L (7-40) Alkaline Phosphatase 51 U/L (46-116) Aspartate Amino Transferase (AST) 22 U/L (13-40) Total Bilirubin 0.9 mg/dL (0.2-1.0) Urinalysis Test 03/16/25 06:41 03/17/25 18:31 03/17/25 18:50 Urine Color Light-yellow (Yellow) Urine Clarity Clear (Clear) Urine pH 6.5 (5.0-9.0) Urine Specific [place] 1.006 (1.001-1.035) Urine Protein Negative (Negative) Urine Ketones Negative (Negative) Urine Blood Negative /uL (Negative) Urine Nitrite Negative (Negative) Urine Bilirubin Negative (Negative) Urine Urobilinogen Normal mg/dL (Negative) Urine Leukocyte Esterase Negative /uL (Negative) Urine RBC <1 /hpf (0 - 3) Urine Microscopic WBC < 1 /HPF (0-3) Urine Squamous Epithelial Cells None seen /hpf (<5) Urine Bacteria None seen /hpf (None Seen) Urine Glucose Normal mg/dL (Normal) Urine Osmolality 327 mOsm/kg Urine Creatinine 41.97 mg/dL (30.0-125.0) Urine Sodium 29 mmol/L (40-220) L Microbiology Microbiology Date/Time Source Procedure Growth Status 03/16/25 14:03 Urine - [place] Urine Culture - Final Complete 03/16/25 09:04 Nose MRSA Screen - Final Complete Labs and/or images reviewed: Labs reviewed by me, Image(s) reviewed by me Assessment/Plan Assessment/Plan Acute Dizziness Acute hypokalemia potassium 2.9: Replace potassium, Nephrology consult appreciated Acute hyponatremia sodium 121: IV fluids Acute on chronic CHF exacerbation echo 55 % ejection fraction Hypertension Chronic Current alcohol abuse: Thiamine folic acid multivitamin Librium Bilateral Lower leg infection: Ancef History of atrial fibrillation Symptomatic bradycardia heart rate 44 status post implantation of leadless pacemaker by Dr. Lomeli with heart rate of 50, heart rate is sometimes going down to 20's Dr. Urias nurse practitioner following Time Spent 50 minutes Advanced care planning time 20 minutes Patient is full code Daughter Keyla [phone] at bedside Patient is ambulating Will DC tomorrow Plan discussed with: Patient My Orders Orders - ALEXANDRO DONALD MD Procedure Category Date Status Time Pt Request For Service PT 03/19/25 Logged 11:05 Date of Service: Mar 20, 2025 Billing Provider: ALEXANDRO DONALD MD Common Visit Codes: [id number] INP/OBS CARE(HIGH) ALEXANDRO DONALD MD Mar 20, 2025 11:01
[2025-03-21] VITALS (58 sets, daily range): BP systolic 102–162; BP diastolic 43–100; PULSE 35–66; RESP 8–26; TEMP 98–99.3; O2SAT 84–99
--- NOTE | 2025-03-21 12:36 | DVHPN2 ---
Reviewed: Care Plan, H&P, Labs, Medications, Previous Orders, Radiology Changes from previous H/P or p: No Changes Objective Vitals Vital Signs Date Time Temp Pulse Resp B/P (MAP) Pulse Ox O2 Delivery O2 Flow Rate FiO2 03/21/25 11:01 61 12 152/62 (92) 03/21/25 10:50 96 03/21/25 08:00 98.4 98.4 03/21/25 08:00 Room Air* 0 21 Intake/Output Intake and Output 03/21/25 07:00 Intake Total 560 ml Output Total 550 ml Balance 10 ml Intake Oral 560 ml Output Urine Total 550 ml # Voids 6 # Bowel Movements 5 Medications Current Medications Medications Dose Ordered Sig/Lucio Route Start Time Stop Time Status Last Admin Dose Admin Nitroglycerin 0.4 mg Q5MINP PRN SL 03/15/25 20:00 Morphine Sulfate 2 mg Q30M PRN IV 03/15/25 20:00 Ondansetron HCl 4 mg Q4HP PRN IV 03/15/25 21:45 Acetaminophen 650 mg Q6HP PRN PO 03/15/25 21:45 Folic Acid 1 mg DAILY PO 03/18/25 10:00 03/21/25 09:30 1 MG Multivitamins 1 tab DAILY PO 03/18/25 10:00 03/21/25 09:30 1 TAB Magnesium Oxide 400 mg DAILY PO 03/18/25 10:00 03/21/25 09:29 400 MG Thiamine HCl 100 mg DAILY PO 03/18/25 10:00 03/21/25 09:28 100 MG Apixaban 5 mg BID PO 03/17/25 22:00 03/21/25 09:31 5 MG Chlordiazepoxide HCl 25 mg Q6HR PO 03/18/25 12:00 03/21/25 11:46 25 MG Laboratory Results Laboratory Tests 03/20/25 05:59 Urinalysis Test 03/16/25 06:41 03/17/25 18:31 03/17/25 18:50 Urine Color Light-yellow (Yellow) Urine Clarity Clear (Clear) Urine pH 6.5 (5.0-9.0) Urine Specific [place] 1.006 (1.001-1.035) Urine Protein Negative (Negative) Urine Ketones Negative (Negative) Urine Blood Negative /uL (Negative) Urine Nitrite Negative (Negative) Urine Bilirubin Negative (Negative) Urine Urobilinogen Normal mg/dL (Negative) Urine Leukocyte Esterase Negative /uL (Negative) Urine RBC <1 /hpf (0 - 3) Urine Microscopic WBC < 1 /HPF (0-3) Urine Squamous Epithelial Cells None seen /hpf (<5) Urine Bacteria None seen /hpf (None Seen) Urine Glucose Normal mg/dL (Normal) Urine Osmolality 327 mOsm/kg Urine Creatinine 41.97 mg/dL (30.0-125.0) Urine Sodium 29 mmol/L (40-220) L Microbiology Microbiology Date/Time Source Procedure Growth Status 03/16/25 14:03 Urine - [place] Urine Culture - Final Complete 03/16/25 09:04 Nose MRSA Screen - Final Complete Labs and/or images reviewed: Labs reviewed by me, Image(s) reviewed by me Assessment/Plan Assessment/Plan Acute Dizziness Acute hypokalemia potassium 2.9: Replace potassium, Nephrology consult appreciated Acute hyponatremia sodium 121: IV fluids Acute on chronic CHF exacerbation echo 55 % ejection fraction Hypertension Chronic Current alcohol abuse: Thiamine folic acid multivitamin Librium Bilateral Lower leg infection: Ancef History of atrial fibrillation: Continue Eliquis Symptomatic bradycardia heart rate 44 status post implantation of leadless pacemaker by Dr. Lomeli with heart rate of 50, Time Spent 50 minutes Advanced care planning time 20 minutes Patient is full code Daughter Keyla [phone] at bedside Patient has difficulty ambulating: Physical therapy ordered Plan discussed with: Patient Date of Service: Mar 21, 2025 Billing Provider: ALEXANDRO DONALD MD Common Visit Codes: [id number] CARE 30-74 MIN ALEXANDRO DONALD MD Mar 21, 2025 12:36
--- NOTE | 2025-03-21 13:50 | DVHPN2 ---
Progress Note - Dictate Date Seen: Mar 21, 2025 Medical Necessity Reason Pt with a Central, PICC or Fol: No vital signs Vital Sign Date Time Temp Pulse Resp B/P (MAP) Pulse Ox O2 Delivery O2 Flow Rate FiO2 03/21/25 11:01 61 12 152/62 (92) 03/21/25 10:50 96 03/21/25 08:00 98.4 98.4 03/21/25 08:00 Room Air* 0 21 Total Intake and Output 03/20/25 03/20/25 03/21/25 15:00 23:00 07:00 Intake Total 360 ml 200 ml Output Total 400 ml 150 ml Balance -40 ml 50 ml medications Current Medications Medications Dose Ordered Sig/Lucio Route Start Time Stop Time Status Last Admin Dose Admin Nitroglycerin 0.4 mg Q5MINP PRN SL 03/15/25 20:00 Morphine Sulfate 2 mg Q30M PRN IV 03/15/25 20:00 Ondansetron HCl 4 mg Q4HP PRN IV 03/15/25 21:45 Acetaminophen 650 mg Q6HP PRN PO 03/15/25 21:45 Folic Acid 1 mg DAILY PO 03/18/25 10:00 03/21/25 09:30 1 MG Multivitamins 1 tab DAILY PO 03/18/25 10:00 03/21/25 09:30 1 TAB Magnesium Oxide 400 mg DAILY PO 03/18/25 10:00 03/21/25 09:29 400 MG Thiamine HCl 100 mg DAILY PO 03/18/25 10:00 03/21/25 09:28 100 MG Apixaban 5 mg BID PO 03/17/25 22:00 03/21/25 09:31 5 MG Chlordiazepoxide HCl 25 mg Q6HR PO 03/18/25 12:00 03/21/25 11:46 25 MG laboratory and microbiology Laboratory Tests 03/20/25 05:59 Test 03/20/25 05:59 Range/Units Serum Glucose 94 74-106 mg/dL Assessment/Plan ASSESSMENT: This is a 74-year old male who initially presented with reported dizziness and weakness. Reports indicate the patient was referred by his primary care physician due to abnormal potassium levels which upon ED arrival, potassium level had been found to be 2.9 which had been supplemented and hypokalemia itself had later resolved. Of note, upon ED arrival initial 12-lead electrocardiogram had revealed evidence for atrial flutter with a ventricular rate of 47bpm consistent with atrial fibrillation with slow ventricular response. Throughout course of present admission, patient has sustained atrial flutter with slow ventricular response with lowest documented heart rate within the 30's as confirmed by telemetry strip findings which patient had been initiated on Dopamine infusion for rate support and admitted to the [facility] for close observation/management. Initial HS troponin level was found normal at 15. TSH level was found normal at 1.84. Echocardiogram revealed a preserved LVEF of 55% with no evidence for significant valvular abnormalities. Telemetry at present time of consultation is consistent with atrial fibrillation with slow ventricular response despite continuous Dopamine infusion. Patient himself dose endorse ongoing dizziness/weakness. Recognizing the above, presentation at this point is consistent with symptomatic bradycardia for which Electrophysiology services were involved by Interventional Cardiology request to evaluate patient candidacy for potential permanent pacemaker implantation. Echocardiogram: Conclusion lvef 55%. left atrium enlarged. mild LVH. dysrhthmia noted Symptomatic bradycardia, lowest HR within 30 requiring Dopamine infusion for rate support Persistent atrial flutter with slow ventricular response, on chronic anticoagulation w/ last dose of Eliquis 03/15/2025 Preserved LVEF of 55% per Echocardiogram 02/2025 Hypokalemia, resolved Status post successful MDT lead-less Micra permanent pacemaker implantation 03/17/2025 ELECTROPHYSIOLOGY SUGGESTIONS FOR MANAGEMENT: Status post successful permanent pacemaker implantation utilizing MDT lead-less Micra device. Remains ventricular paced upon telemetry review. Device interrogation performed on 03/18/2025 demonstrated stable function of a Medtronic Micra AV2 pacemaker implanted on 03/17/2025. Battery longevity is estimated at >10 years with appropriate RV lead parameters. The device is programmed in VVI mode with a lower rate of 50 bpm. Pacing data showed ventricular pacing at 38%, with no abnormal findings noted. Anticoagulation resumed. Stable from EP perspective at this point. Remainder of cardiac management as per Interventional Cardiology services. Will proceed to follow from an EP perspective. Proceed with close rate and rhythm surveillance Proceed with close hemodynamic surveillance Proceed with optimized blood pressure control Transfuse to sustain HGB level above 7.0 Sustain Magnesium level greater than 2.0 Sustain Potassium level greater than 4.0 Follow up renal function and electrolytes Management in [facility] Follow up [employer] consultant recommendations Will proceed to follow from an EP perspective Further recommendations per clinical progression All available diagnostic labs, EKG's, and images were personally reviewed Patient's status, findings, and plan of care was reviewed and discussed with supervising physician Dr. York, who is in agreement with current plan of care. Plan of care discussed with and agreed upon by patient / family / primary RN Prognosis: Guarded Thank you for allowing me to participate in the care of this patient. Further recommendations based on patients clinical course and progression, primary attending, and other consultants. Will continue to follow with primary attending. If you have any questions or concerns, please do not hesitate to contact me. A total of 75 minutes was spent reviewing the patient record, examining the patient, making a diagnostic and therapeutic plan, discussing this plan with medical personnel, following up on diagnostic studies and following the patient for clinical stability excluding any and all procedures. At least 50% of this time was spent in direct, [id number] contact. Dietary Evaluation Review Comments: Cardiac Diet, alcohlic rehab upon D/C Expected Outcomes/Goals: gradual wt loss Plan discussed with: Other (Patient and Primary RN ) CECELIA HERNANDEZ [employer] Mar 21, 2025 13:50
[2025-03-22] VITALS (24 sets, daily range): BP systolic 99–164; BP diastolic 41–85; PULSE 51–72; RESP 11–28; TEMP 97.6–99.7; O2SAT 95–99
[2025-03-22 06:32] LABS: Anion Gap 8 (5-15); Carbon Dioxide 26 mmol/L (20-31); Chloride 101 mmol/L (98-107); Potassium 4.5 mmol/L (3.5-5.1)
[2025-03-22 06:33] LABS: Calcium 8.9 mg/dL (8.7-10.4)
[2025-03-22 06:38] LABS: BUN/Creatinine Ratio 17.6 (10.0-20.0); Blood Urea Nitrogen 18 mg/dL (9-23); Glucose 87 mg/dL (74-106); Magnesium 1.9 mg/dL (1.6-2.6)
[2025-03-22 06:53] LABS: Sodium 135 mmol/L (136-145)
--- NOTE | 2025-03-22 13:11 | DVHPN2 ---
Reviewed: Care Plan, H&P, Labs, Medications, Previous Orders, Radiology Changes from previous H/P or p: No Changes Objective Vitals Vital Signs Date Time Temp Pulse Resp B/P (MAP) Pulse Ox O2 Delivery O2 Flow Rate FiO2 03/22/25 12:54 145/68 03/22/25 12:30 71 03/22/25 08:00 22 96 Room Air* 0 21 03/22/25 04:01 98.1 98.1 Intake/Output Intake and Output 03/22/25 07:00 Intake Total 810 ml Output Total 1 ml Balance 809 ml Intake Oral 810 ml Urine/Stool Mix 1 ml # Voids 5 # Bowel Movements 5 Medications Current Medications Medications Dose Ordered Sig/Lucio Route Start Time Stop Time Status Last Admin Dose Admin Nitroglycerin 0.4 mg Q5MINP PRN SL 03/15/25 20:00 Morphine Sulfate 2 mg Q30M PRN IV 03/15/25 20:00 Ondansetron HCl 4 mg Q4HP PRN IV 03/15/25 21:45 Acetaminophen 650 mg Q6HP PRN PO 03/15/25 21:45 Folic Acid 1 mg DAILY PO 03/18/25 10:00 03/22/25 11:18 1 MG Multivitamins 1 tab DAILY PO 03/18/25 10:00 03/22/25 11:18 1 TAB Magnesium Oxide 400 mg DAILY PO 03/18/25 10:00 03/22/25 11:18 400 MG Thiamine HCl 100 mg DAILY PO 03/18/25 10:00 03/22/25 11:18 100 MG Apixaban 5 mg BID PO 03/17/25 22:00 03/22/25 11:25 5 MG Chlordiazepoxide HCl 25 mg Q6HR PO 03/18/25 12:00 03/22/25 12:33 25 MG Amlodipine Besylate 5 mg BID PO 03/22/25 22:00 Laboratory Results Laboratory Tests 03/20/25 05:59 03/22/25 05:47 Chemistry Test 03/22/25 05:47 Calcium Level 8.9 mg/dL (8.7-10.4) Magnesium Level 1.9 mg/dL (1.6-2.6) Urinalysis Test 03/16/25 06:41 03/17/25 18:31 03/17/25 18:50 Urine Color Light-yellow (Yellow) Urine Clarity Clear (Clear) Urine pH 6.5 (5.0-9.0) Urine Specific [place] 1.006 (1.001-1.035) Urine Protein Negative (Negative) Urine Ketones Negative (Negative) Urine Blood Negative /uL (Negative) Urine Nitrite Negative (Negative) Urine Bilirubin Negative (Negative) Urine Urobilinogen Normal mg/dL (Negative) Urine Leukocyte Esterase Negative /uL (Negative) Urine RBC <1 /hpf (0 - 3) Urine Microscopic WBC < 1 /HPF (0-3) Urine Squamous Epithelial Cells None seen /hpf (<5) Urine Bacteria None seen /hpf (None Seen) Urine Glucose Normal mg/dL (Normal) Urine Osmolality 327 mOsm/kg Urine Creatinine 41.97 mg/dL (30.0-125.0) Urine Sodium 29 mmol/L (40-220) L Microbiology Microbiology Date/Time Source Procedure Growth Status 03/16/25 14:03 Urine - [place] Urine Culture - Final Complete 03/16/25 09:04 Nose MRSA Screen - Final Complete Labs and/or images reviewed: Labs reviewed by me, Image(s) reviewed by me Assessment/Plan Assessment/Plan Acute Dizziness Acute hypokalemia potassium 2.9: Replace potassium, Nephrology consult appreciated Acute hyponatremia sodium 121: IV fluids Acute on chronic CHF exacerbation echo 55 % ejection fraction Hypertension Chronic Current alcohol abuse: Thiamine folic acid multivitamin Librium Bilateral Lower leg infection: Ancef History of atrial fibrillation: Continue Eliquis Symptomatic bradycardia heart rate 44 status post implantation of leadless pacemaker by Dr. Lomeli with heart rate of 50, Time Spent 50 minutes Advanced care planning time 20 minutes Patient is full code Daughter Keyla [phone] at bedside Patient has difficulty ambulating: Physical therapy ordered Continue Current management Plan discussed with: Patient Date of Service: Mar 22, 2025 Billing Provider: ALEXANDRO DONALD MD Common Visit Codes: [id number] INP/OBS CARE(HIGH) ALEXANDRO DONALD MD Mar 22, 2025 13:11
--- NOTE | 2025-03-22 15:19 | DVHPN2 ---
Progress Note - Dictate Date Seen: Mar 22, 2025 Medical Necessity Reason Pt with a Central, PICC or Fol: No vital signs Vital Sign Date Time Temp Pulse Resp B/P (MAP) Pulse Ox O2 Delivery O2 Flow Rate FiO2 03/22/25 14:00 97.6 63 24 164/70 (101) 97 97.6 03/22/25 08:00 Room Air* 0 21 Total Intake and Output 03/21/25 03/21/25 03/22/25 15:00 23:00 07:00 Intake Total 360 ml 450 ml Output Total 1 ml Balance 360 ml 449 ml medications Current Medications Medications Dose Ordered Sig/Lucio Route Start Time Stop Time Status Last Admin Dose Admin Nitroglycerin 0.4 mg Q5MINP PRN SL 03/15/25 20:00 Morphine Sulfate 2 mg Q30M PRN IV 03/15/25 20:00 Ondansetron HCl 4 mg Q4HP PRN IV 03/15/25 21:45 Acetaminophen 650 mg Q6HP PRN PO 03/15/25 21:45 Folic Acid 1 mg DAILY PO 03/18/25 10:00 03/22/25 11:18 1 MG Multivitamins 1 tab DAILY PO 03/18/25 10:00 03/22/25 11:18 1 TAB Magnesium Oxide 400 mg DAILY PO 03/18/25 10:00 03/22/25 11:18 400 MG Thiamine HCl 100 mg DAILY PO 03/18/25 10:00 03/22/25 11:18 100 MG Apixaban 5 mg BID PO 03/17/25 22:00 03/22/25 11:25 5 MG Chlordiazepoxide HCl 25 mg Q6HR PO 03/18/25 12:00 03/22/25 12:33 25 MG Amlodipine Besylate 5 mg BID PO 03/22/25 22:00 laboratory and microbiology Laboratory Tests 03/22/25 05:47 03/20/25 05:59 Test 03/22/25 05:47 Range/Units Serum Glucose 87 74-106 mg/dL Assessment/Plan ASSESSMENT: This is a 74-year old male who initially presented with reported dizziness and weakness. Reports indicate the patient was referred by his primary care physician due to abnormal potassium levels which upon ED arrival, potassium level had been found to be 2.9 which had been supplemented and hypokalemia itself had later resolved. Of note, upon ED arrival initial 12-lead electrocardiogram had revealed evidence for atrial flutter with a ventricular rate of 47bpm consistent with atrial fibrillation with slow ventricular response. Throughout course of present admission, patient has sustained atrial flutter with slow ventricular response with lowest documented heart rate within the 30's as confirmed by telemetry strip findings which patient had been initiated on Dopamine infusion for rate support and admitted to the [facility] for close observation/management. Initial HS troponin level was found normal at 15. TSH level was found normal at 1.84. Echocardiogram revealed a preserved LVEF of 55% with no evidence for significant valvular abnormalities. Telemetry at present time of consultation is consistent with atrial fibrillation with slow ventricular response despite continuous Dopamine infusion. Patient himself dose endorse ongoing dizziness/weakness. Recognizing the above, presentation at this point is consistent with symptomatic bradycardia for which Electrophysiology services were involved by Interventional Cardiology request to evaluate patient candidacy for potential permanent pacemaker implantation. Echocardiogram: Conclusion lvef 55%. left atrium enlarged. mild LVH. dysrhthmia noted Symptomatic bradycardia, lowest HR within 30 requiring Dopamine infusion for rate support Persistent atrial flutter with slow ventricular response, on chronic anticoagulation w/ last dose of Eliquis 03/15/2025 Preserved LVEF of 55% per Echocardiogram 02/2025 Hypokalemia, resolved Status post successful MDT lead-less Micra permanent pacemaker implantation 03/17/2025 Hypertension ELECTROPHYSIOLOGY SUGGESTIONS FOR MANAGEMENT: Status post successful permanent pacemaker implantation utilizing MDT lead-less Micra device. Remains ventricular paced upon telemetry review. Device interrogation performed on 03/18/2025 demonstrated stable function of a Medtronic Micra AV2 pacemaker implanted on 03/17/2025. Battery longevity is estimated at >10 years with appropriate RV lead parameters. The device is programmed in VVI mode with a lower rate of 50 bpm. Pacing data showed ventricular pacing at 38%, with no abnormal findings noted. Anticoagulation resumed. Stable from EP perspective at this point. Remainder of cardiac management as per Interventional Cardiology services. Will proceed to follow from an EP perspective. Proceed with close rate and rhythm surveillance Proceed with close hemodynamic surveillance Proceed with optimized blood pressure control Transfuse to sustain HGB level above 7.0 Sustain Magnesium level greater than 2.0 Sustain Potassium level greater than 4.0 Follow up renal function and electrolytes Amlodipine 5mg twice daily Management in [facility] Follow up [employer] sales consultant recommendations Will proceed to follow from an EP perspective Further recommendations per clinical progression All available diagnostic labs, EKG's, and images were personally reviewed Patient's status, findings, and plan of care was reviewed and discussed with supervising physician Dr. York, who is in agreement with current plan of care. Plan of care discussed with and agreed upon by patient / family / primary RN Prognosis: Guarded Thank you for allowing me to participate in the care of this patient. Further recommendations based on patients clinical course and progression, primary attending, and other consultants. Will continue to follow with primary attending. If you have any questions or concerns, please do not hesitate to contact me. A total of 75 minutes was spent reviewing the patient record, examining the patient, making a diagnostic and therapeutic plan, discussing this plan with medical personnel, following up on diagnostic studies and following the patient for clinical stability excluding any and all procedures. At least 50% of this time was spent in direct, [id number] contact. Dietary Evaluation Review Comments: Cardiac Diet, alcohlic rehab upon D/C Expected Outcomes/Goals: gradual wt loss Plan discussed with: Patient (patient and primary rn ) CECELIA HERNANDEZ Mar 22, 2025 15:19
[2025-03-23] VITALS (19 sets, daily range): BP systolic 106–156; BP diastolic 36–81; PULSE 52–68; RESP 10–22; TEMP 97.7–98; O2SAT 90–98
[2025-03-23] MEDS ORDERED: AMLO1TAB23 PO (11:18)
[2025-03-23] MEDS ORDERED: MAGN1TAB29 PO (11:18)
[2025-03-23] MEDS ORDERED: APIX5TAB PO (11:18)
--- NOTE | 2025-03-23 11:23 | DVHDS2 ---
Discharge Summary Date of Admission Mar 15, 2025 at 19:52 Date of Discharge: Mar 23, 2025 Admitting Diagnosis Generalized weakness Wounds: Pacemaker implantation Labs/Diagnostic Data: Laboratory Results Test 03/22/25 05:47 03/20/25 05:59 03/17/25 18:50 03/17/25 18:31 Sodium Level 135 mmol/L (136-145) Potassium Level 4.5 mmol/L (3.5-5.1) Chloride Level 101 mmol/L (98-107) Carbon Dioxide Level 26 mmol/L (20-31) Anion Gap 8 (5-15) Blood Urea Nitrogen 18 mg/dL (9-23) Creatinine 1.02 mg/dL (0.700-1.30) Glomerular Filtration Rate Calc 78 mL/min (>90) BUN/Creatinine Ratio 17.6 (10.0-20.0) Serum Glucose 87 mg/dL (74-106) Calcium Level 8.9 mg/dL (8.7-10.4) Magnesium Level 1.9 mg/dL (1.6-2.6) White Blood Count 5.3 10^3/uL (4.4-10.8) Red Blood Count 3.64 10^6/uL (4.5-5.90) Hemoglobin 12.3 g/dL (13.5-17.5) Hematocrit 34.3 % (41.0-53.0) Mean Corpuscular Volume 94.2 fL (80.0-100.0) Mean Corpuscular Hemoglobin 33.9 pg (28.0-32.0) Mean Corpuscular Hemoglobin Concent 36.0 g/dL (32.0-36.0) Red Cell Distribution Width 13.0 % (11.8-14.3) Platelet Count 171 10^3/uL (140-450) Mean Platelet Volume 6.5 fL (6.9-10.8) Neutrophils (%) (Auto) 57.4 % (37.0-80.0) Lymphocytes (%) (Auto) 22.6 % (10.0-50.0) Monocytes (%) (Auto) 13.6 % (0.0-12.0) Eosinophils (%) (Auto) 5.4 % (0.0-7.0) Basophils (%) (Auto) 1.0 % (0.0-2.0) Neutrophils # (Auto) 3.1 10 ^3/uL (1.6-8.6) Lymphocytes # (Auto) 1.2 10 ^3/uL (0.4-5.4) Monocytes # (Auto) 0.7 10 ^3/uL (0-1.3) Eosinophils # (Auto) 0.3 10 ^3/uL (0-0.8) Basophils # (Auto) 0.1 10 ^3/uL (0-0.2) Nucleated Red Blood Cells 0.1 % Total Bilirubin 0.9 mg/dL (0.2-1.0) Aspartate Amino Transferase (AST) 22 U/L (13-40) Alanine Aminotransferase (ALT) 16 U/L (7-40) Alkaline Phosphatase 51 U/L (46-116) Total Protein 6.7 g/dL (5.7-8.2) Albumin 3.6 g/dL (3.2-4.8) Urine Creatinine 41.97 mg/dL (30.0-125.0) Urine Sodium 29 mmol/L (40-220) Urine Osmolality 327 mOsm/kg Test 03/17/25 05:15 03/16/25 06:41 03/15/25 21:50 03/15/25 12:50 Prothrombin Time 10.9 sec (9.3-11.8) Prothrombin Time INR 1.03 (0.9-1.15) Activated Partial Thromboplast Time 29.9 SEC (24.5-34.5) Urine Color Light-yellow (Yellow) Urine Clarity Clear (Clear) Urine pH 6.5 (5.0-9.0) Urine Specific [place] 1.006 (1.001-1.035) Urine Protein Negative (Negative) Urine Ketones Negative (Negative) Urine Blood Negative /uL (Negative) Urine Nitrite Negative (Negative) Urine Bilirubin Negative (Negative) Urine Urobilinogen Normal mg/dL (Negative) Urine Leukocyte Esterase Negative /uL (Negative) Urine RBC <1 /hpf (0 - 3) Urine Microscopic WBC < 1 /HPF (0-3) Urine Squamous Epithelial Cells None seen /hpf (<5) Urine Bacteria None seen /hpf (None Seen) Urine Glucose Normal mg/dL (Normal) B-Type Natriuretic Peptide 169.44 pg/mL (0-100) Thyroid Stimulating Hormone (TSH) 1.84 uIU/mL (0.55-4.78) Troponin I High Sensitivity 15 ng/L (</=54) Other Laboratory Tests 03/22/25 05:47 03/20/25 05:59 Brief Hx & Hospital Course: 74-year-old male on hospice, hospice was revoked and admitted for acute dizziness and weakness. Found to be symptomatic Santiago with a heart rate of 44 received leadless pacemaker implantation by Dr. Lomeli. Acute hypokalemia 2.9 resolved with the potassium replacement nephrology consult appreciated also had hyponatremia sodium 121 which has resolved echo 55 percent ejection fraction history of chronic current alcohol abuse thiamine folic acid multivitamin Librium was given . Patient feels better patient has unsteady gait Physical therapy ordered being discharged home on home health. Plan acceptable with the patient's daughter Keyla, She does not want him to go back on hospice General condition stable but poor at the time of discharge Consults/Reason for consult Cardiology Operations or Procedures Implantation of leadless pacemaker Condition at Discharge: Fair Final Diagnosis/Problems List Acute Dizziness Acute hypokalemia potassium 2.9: Replace potassium, Nephrology consult appreciated Acute hyponatremia sodium 121: IV fluids Acute on chronic CHF exacerbation echo 55 % ejection fraction Hypertension Chronic Current alcohol abuse: Thiamine folic acid multivitamin Librium Bilateral Lower leg infection: Ancef History of atrial fibrillation: Continue Eliquis Symptomatic bradycardia heart rate 44 status post implantation of leadless pacemaker by Dr. Lomeli with heart rate of 50, Discharge Disposition: Home with Health Services Discharge Instruct/Medications Diet: Cardiac 2g Na,low cholest Activity: Light activity Follow Up/Referral: Follow up with your primary Dr in one week Follow up with the Cardiology Dr. Lomeli in one week Resume all previous home medications Medications: Transmitted to [facility] Amlodipine Eliquis Magnesium oxide Thiamine Folic acid Librium Scheduled Amlodipine Besylate (Amlodipine Besylate), 5 MG PO BID, (Reported) Amlodipine Besylate (Amlodipine Besylate), 1 TAB PO DAILY Apixaban Base (Eliquis), 5 MG PO BID Aspirin (Aspir-81), 1 TAB PO DAILY, (Reported) Cephalexin Monohydrate (Cephalexin), 500 MG PO TID, (Reported) Clopidogrel Bisulfate (Plavix), 1 TAB PO DAILY, (Reported) Furosemide (Furosemide), 40 MG PO BIDD, (Reported) Losartan Potassium (Losartan Potassium), 50 MG PO BID, (Reported) Magnesium (Magnesium 400 mg), 1 TAB PO DAILY Metolazone (Metolazone), 2.5 MG PO DAILY, (Reported) 39 (Time taken for discharge summary 39 minutes) Discharge Statement: "Patient was advised to return to the ER or call 911 if any headaches, dizziness, shortness of breath, chest pain, abdominal pain, bleeding, fevers, or worsening of medical condition. Patient was counseled about treatment plan, medications, possible side effects, patientverbalized understanding. All questions were answered to the best of my ability. This discharge took greater then 30 minutes in planning, reviewing documentation, counseling the patient, and discussing with other team members." ASSESSMENT ASSESSMENT Hospital Course Uneventful Assessment Acute Dizziness Acute hypokalemia potassium 2.9: Replace potassium, Nephrology consult appreciated Acute hyponatremia sodium 121: IV fluids Acute on chronic CHF exacerbation echo 55 % ejection fraction Hypertension Chronic Current alcohol abuse: Thiamine folic acid multivitamin Librium Bilateral Lower leg infection: Ancef History of atrial fibrillation: Continue Eliquis Symptomatic bradycardia heart rate 44 status post implantation of leadless pacemaker by Dr. Lomeli with heart rate of 50, Date of Service: Mar 23, 2025 Billing Provider: ALEXANDRO DONALD MD Common Visit Codes: 14917-COH/OBS DISCH DAY >30min ALEXNADRO DONALD MD Mar 23, 2025 11:23
[2025-03-23] MEDS ORDERED: FOLI-119 PO (11:25)
[2025-03-23] MEDS ORDERED: CHL25C PO (11:25)
[2025-03-23] MEDS ORDERED: THIA100T13 PO (11:25)
--- NOTE | 2025-03-23 14:01 | DVHPN2 ---
Progress Note - Dictate Date Seen: Mar 23, 2025 Medical Necessity Reason Pt with a Central, PICC or Fol: No vital signs Vital Sign Date Time Temp Pulse Resp B/P (MAP) Pulse Ox O2 Delivery O2 Flow Rate FiO2 03/23/25 09:16 145/68 03/23/25 08:00 52 03/23/25 08:00 21 96 Room Air* 0 21 03/23/25 04:01 98.0 98.0 Total Intake and Output 03/22/25 03/22/25 03/23/25 15:00 23:00 07:00 Intake Total 400 ml 240 ml Output Total 500 ml Balance 400 ml -260 ml medications Current Medications Medications Dose Ordered Sig/Lucio Route Start Time Stop Time Status Last Admin Dose Admin Nitroglycerin 0.4 mg Q5MINP PRN SL 03/15/25 20:00 Morphine Sulfate 2 mg Q30M PRN IV 03/15/25 20:00 Ondansetron HCl 4 mg Q4HP PRN IV 03/15/25 21:45 Acetaminophen 650 mg Q6HP PRN PO 03/15/25 21:45 Folic Acid 1 mg DAILY PO 03/18/25 10:00 03/23/25 09:15 1 MG Multivitamins 1 tab DAILY PO 03/18/25 10:00 03/23/25 09:15 1 TAB Magnesium Oxide 400 mg DAILY PO 03/18/25 10:00 03/23/25 09:16 400 MG Thiamine HCl 100 mg DAILY PO 03/18/25 10:00 03/23/25 09:15 100 MG Apixaban 5 mg BID PO 03/17/25 22:00 03/23/25 09:15 5 MG Chlordiazepoxide HCl 25 mg Q6HR PO 03/18/25 12:00 03/23/25 12:20 25 MG Amlodipine Besylate 5 mg BID PO 03/22/25 22:00 03/23/25 09:16 5 MG laboratory and microbiology Laboratory Tests 03/22/25 05:47 03/20/25 05:59 Test 03/22/25 05:47 Range/Units Serum Glucose 87 74-106 mg/dL Assessment/Plan ASSESSMENT: This is a 74-year old male who initially presented with reported dizziness and weakness. Reports indicate the patient was referred by his primary care physician due to abnormal potassium levels which upon ED arrival, potassium level had been found to be 2.9 which had been supplemented and hypokalemia itself had later resolved. Of note, upon ED arrival initial 12-lead electrocardiogram had revealed evidence for atrial flutter with a ventricular rate of 47bpm consistent with atrial fibrillation with slow ventricular response. Throughout course of present admission, patient has sustained atrial flutter with slow ventricular response with lowest documented heart rate within the 30's as confirmed by telemetry strip findings which patient had been initiated on Dopamine infusion for rate support and admitted to the [facility] for close observation/management. Initial HS troponin level was found normal at 15. TSH level was found normal at 1.84. Echocardiogram revealed a preserved LVEF of 55% with no evidence for significant valvular abnormalities. Telemetry at present time of consultation is consistent with atrial fibrillation with slow ventricular response despite continuous Dopamine infusion. Patient himself dose endorse ongoing dizziness/weakness. Recognizing the above, presentation at this point is consistent with symptomatic bradycardia for which Electrophysiology services were involved by Interventional Cardiology request to evaluate patient candidacy for potential permanent pacemaker implantation. Echocardiogram: Conclusion lvef 55%. left atrium enlarged. mild LVH. dysrhthmia noted Symptomatic bradycardia, lowest HR within 30 requiring Dopamine infusion for rate support Persistent atrial flutter with slow ventricular response, on chronic anticoagulation w/ last dose of Eliquis 03/15/2025 Preserved LVEF of 55% per Echocardiogram 02/2025 Hypokalemia, resolved Status post successful MDT lead-less Micra permanent pacemaker implantation 03/17/2025 Hypertension ELECTROPHYSIOLOGY SUGGESTIONS FOR MANAGEMENT: Status post successful permanent pacemaker implantation utilizing MDT lead-less Micra device. Remains ventricular paced upon telemetry review. Device interrogation performed on 03/18/2025 demonstrated stable function of a Med[employer]onic Micra AV2 pacemaker implanted on 03/17/2025. Battery longevity is estimated at >10 years with appropriate RV lead parameters. The device is programmed in VVI mode with a lower rate of 50 bpm. Pacing data showed ventricular pacing at 38%, with no abnormal findings noted. Anticoagulation resumed. Stable from EP perspective at this point and can be managed outpatient. Remainder of cardiac management as per Interventional Cardiology services. Proceed with close rate and rhythm surveillance Proceed with close hemodynamic surveillance Proceed with optimized blood pressure control Transfuse to sustain HGB level above 7.0 Sustain Magnesium level greater than 2.0 Sustain Potassium level greater than 4.0 Follow up renal function and electrolytes Amlodipine 5mg twice daily Management in [facility] Follow up incident response consultant recommendations Will proceed to follow from an EP perspective Further recommendations per clinical progression All available diagnostic labs, EKG's, and images were personally reviewed Patient's status, findings, and plan of care was reviewed and discussed with supervising physician Dr. York, who is in agreement with current plan of care. Plan of care discussed with and agreed upon by patient / family / primary RN Prognosis: Guarded Thank you for allowing me to participate in the care of this patient. Further recommendations based on patients clinical course and progression, primary attending, and other consultants. Will continue to follow with primary attending. If you have any questions or concerns, please do not hesitate to contact me. A total of 75 minutes was spent reviewing the patient record, examining the patient, making a diagnostic and therapeutic plan, discussing this plan with medical personnel, following up on diagnostic studies and following the patient for clinical stability excluding any and all procedures. At least 50% of this time was spent in direct, [id number] contact. Dietary Evaluation Review Comments: Cardiac Diet, alcohlic rehab upon D/C Expected Outcomes/Goals: gradual wt loss Plan discussed with: Patient (patient and primary rn ) CECELIA HERNANDEZ Mar 23, 2025 14:01
== END 2025-03-23 14:47 | disposition home health service (06) | DRG 228 ==
LOC: EDBD 12:22 → ER 12:22 → OVERFLOW 19:52 → DOU 03-16 09:14
PROVIDERS: ADMIT Family Medicine; ATTEND Family Medicine
PROC: X2H New Technology, Cardiovascular System, Insertion (ICD-10-PCS; principal; 2025-03-17)
PROC: X2HK3V9 Insertion of Dual-Chamber Intracardiac Pacemaker into Right Ventricle, Percutaneous Approach, New Technology Group 9 (ICD-10-PCS; 2025-03-17)
DX: I49.5 Sick sinus syndrome (principal); Z00.6 Encounter for examination for normal comparison and control in clinical research program; I50.33 Acute on chronic diastolic (congestive) heart failure; N17.0 Acute kidney failure with tubular necrosis; I48.19 Other persistent atrial fibrillation; E87.1 Hypo-osmolality and hyponatremia; I48.92 Unspecified atrial flutter; I11.0 Hypertensive heart disease with heart failure; E87.6 Hypokalemia; F10.10 Alcohol abuse, uncomplicated; E86.1 Hypovolemia; N18.9 Chronic kidney disease, unspecified; Z79.82 Long term (current) use of aspirin; Z79.2 Long term (current) use of antibiotics; Z79.01 Long term (current) use of anticoagulants; Y90.9 Presence of alcohol in blood, level not specified
CPT/HCPCS: 36415; 71045; 80048; 80053; 81001; 82570; 83735; 83880; 83935; 84132; 84300; 84443; 84484; 85014; 85018; 85025; 85610; 85730; 86850; 86900; 86901; 87081; 87086; 93005; 93306; 96365; 96375; 97110; 97116; 97163; 97530; 99152; 99291; 99292; G0378; J2250; J3480

== ENCOUNTER 2025-03-24 16:24 | Inpatient (IN) | payer OTHER ==
[~2025-03-24] VITALS: Ht 180.3 cm; Wt 88.6 kg
[~2025-03-24 16:24] MED LIST: AMLO1TAB22 PO; AMLO1TAB23 PO; APIX5TAB PO; ASPI1TAB20 PO; CEPH500C PO; CHL25C PO; CLOP75TA28 PO; FOLI-119 PO; FURO40TA4 PO; LOSA-534 PO; MAGN1TAB29 PO; METO2.5T PO; THIA100T13 PO
[2025-03-24] MEDS: ACETAMINOPHEN 325 MG TAB PO ONE (17:00)
[2025-03-24] MEDS: HYDROcodone-ACET 5/325MG TAB PO ONE (17:00)
[2025-03-24 17:52] LABS: Hematocrit 31.4 % (41.0-53.0); Hemoglobin 11.1 g/dL (13.5-17.5); Mean Corpuscular Hemoglobin 32.8 pg (28.0-32.0); Mean Corpuscular Volume 93.2 fL (80.0-100.0); Nucleated Red Blood Cells % 0.0 %
[2025-03-24 18:04] LABS: INR 1.08 (0.9-1.15); Prothrombin Time 11.4 sec (9.3-11.8)
[2025-03-24 18:06] LABS: Alanine Aminotransferase 33 U/L (7-40); Alkaline Phosphatase 66 U/L (46-116); Anion Gap 12 (5-15); BUN/Creatinine Ratio 17.1 (10.0-20.0); Blood Urea Nitrogen 18 mg/dL (9-23); Calcium 8.9 mg/dL (8.7-10.4); Carbon Dioxide 21 mmol/L (20-31); Chloride 103 mmol/L (98-107); Glucose 77 mg/dL (74-106); Magnesium 1.9 mg/dL (1.6-2.6); Potassium 4.3 mmol/L (3.5-5.1); Total Protein 7.4 g/dL (5.7-8.2)
[2025-03-24 18:07] LABS: Albumin 4.1 g/dL (3.2-4.8)
[2025-03-24 18:08] LABS: Bilirubin, Total 1.3 mg/dL (0.2-1.0); Sodium 136 mmol/L (136-145)
--- NOTE | 2025-03-24 18:11 | DVH ---
Procedure: CT HEAD WITHOUT CONTRAST Study Date and Requested Time: 03/24/2025 05:01 PM History: fall Comparison: None Dose: CTDI: 53.47 mGy DLP: 965.85 mGycm Technique: Multiplanar images obtained through the brain without intravenous contrast. Findings: [id number] diffuse brain Atrophy. Moderate chronic small-vessel ischemic changes. No hemorrhages, masses, mass effect, midline shift, herniation or cytotoxic edema following a large v ascular territory. No intra-axial or extra-axial fluid collections. No evidence of hydrocephalus. The basal cisterns are patent. The pituitary gland, sella and parasellar regions are unremarkable. The cerebellar tonsils are in nor mal position. Posterior fossa arachnoid cyst versus prominent cisterna magna. Limited evaluation of the cerebellum due to motion artifact with no gross abnormalities noted. The orbits and globes are unremarkable. The paranasal sinuses and mastoids are clear. There are no wo rrisome calvarial lesions. Impression: Limited evaluation due to motion. Otherwise, no evidence of acute intracranial abnormality.
--- NOTE | 2025-03-24 22:32 | ED.PDOC ---
History of Present Illness HPI Comments This is a 74-year-old male with past medical history of hypertension, AFib (on Eliquis), status post pacemaker (recent placed, due to severe bradycardia), brought to the hospital by EMS from home due to mechanical fall. Per patient, he he was walking, tripped, fell and hit his head and left side of body on the ground. Subsequently he developed headache, and left-sided upper limb pain. Post fall, he was not able to stand. He denies loss of consciousness, nausea vomiting. Chief Complaint: Fall Injury Time Seen by MD: 16:40 Allergies: Coded Allergies: NO KNOWN ALLERGIES (Unverified , 03/15/25) Home Meds Active Scripts Chlordiazepoxide Hcl (Librium) 25 Mg Cp, 25 MG PO TID, #30 CAP Prov:ALEXANDRO DONALD MD 03/23/25 Folic Acid (Folic Acid) 1 Mg Tab, 1 MG PO DAILY, #30 TAB Prov:ALEXANDRO DONALD MD 03/23/25 Thiamine HCl (Thiamine Hydrochloride) 100 Mg Tab, 100 MG PO DAILY, #30 TAB Prov:ALEXANDRO DONALD MD 03/23/25 Magnesium (Magnesium 400 mg) 1 Tab Tab, 1 TAB PO DAILY, #30 TAB Prov:ALEXANDRO DONALD MD 03/23/25 Amlodipine Besylate (Amlodipine Besylate) 10 Mg Tab, 1 TAB PO DAILY, #30 TAB 5 Refills Prov:ALEXANDRO DONALD MD 03/23/25 Apixaban Base (ELIQUIS) 5 Mg Tab, 5 MG PO BID, #60 TAB Prov:ALEXANDRO DONALD MD 03/23/25 Reported Medications Amlodipine Besylate (Amlodipine Besylate) 5 Mg Tab, 5 MG PO BID for 30 Days, MG 03/16/25 Losartan Potassium (Losartan Potassium) 50 Mg Tab, 50 MG PO BID for 30 Days, MG 03/16/25 Aspirin (Aspir-81) 81 Mg Tab, 1 TAB PO DAILY, #30 TAB 5 Refills 03/16/25 Cephalexin Monohydrate (Cephalexin) 500 Mg Cap, 500 MG PO TID, MG 03/16/25 Clopidogrel Bisulfate (Plavix) 75 Mg Tab, 1 TAB PO DAILY, #90 TAB 1 Refill 03/16/25 Metolazone (Metolazone) 2.5 Mg Tab, 2.5 MG PO DAILY for 30 Days, MG 03/16/25 Furosemide (Furosemide) 40 Mg Tab, 40 MG PO BIDD for 30 Days, MG 03/16/25 Mode of Arrival: EMS Past Medical History PAST MEDICAL HISTORY: AFIB, HTN Surgical History: Denies all surgeries Social History Smoker: Non-Smoker Alcohol: Denies ETOH Use Drugs: Denies Drug Use Constitutional: reports: fatigue, weakness; denies: chills, diaphoresis, fever, malaise, sweats, others EENTM: denies: blurred vision, double vision, ear bleeding, ear discharge, ear drainage, ear pain, ear ringing, eye pain, eye redness, hearing loss, mouth pain, mouth swelling, nasal discharge, nose bleeding, nose congestion, nose pain, photophobia, tearing, throat pain, throat swelling, voice changes, others Respiratory: denies: cough, hemoptysis, orthopnea, SOB at rest, shortness of breath, SOB with excertion, stridor, wheezing, others Cardiovascular: denies: chest pain, dizzy spells, diaphoresis, Dyspnea on exertion, edema, irregular heart beat, left arm pain, lightheadedness, palpitations, PND, syncope, others Gastrointestinal: denies: abdomen distended, abdominal pain, blood streaked bowels, constipated, diarrhea, dysphagia, difficulty swallowing, hematemesis, melena, nausea, poor appetite, poor fluid intake, rectal bleeding, rectal pain, vomiting, others Genitourinary: denies: burning, dysuria, flank pain, frequency, hematuria, incontinence, penile discharge, penile sore, pain, testicle pain, testicle swelling, urgency, others Neurological: denies: dizziness, fainting, headache, left sided numbness, left sided weakness, numbness, paresthesia, pre-existing deficit, right sided numbness, right sided weakness, seizure, speech problems, tingling, tremors, weakness, others Musculoskeletal: denies: back pain, gout, joint pain, joint swelling, muscle pain, muscle stiffness, neck pain, others Integumetry: denies: bruises, change in color, change in hair/nails, dryness, laceration, lesions, lumps, rash, wounds, others Hematologic/Lymphatic: denies: anemia, blood clots, easy bleeding, easy bruising, swollen glands, others Endocrine: denies: excessive hunger, excessive sweating, excessive thirst, excessive urination, flushing, intolerance to cold, intolerance to heat, unexplained weight gain, unexplained weight loss, others Psychiatric: denies: anxiety, bipolar disorder, depression, hopeless, panic disorder, schizophrenia, sleepless, suicidal, others Physical Exam General Appearance: No Apparent Distress, Normal HEENT: Normal ENT Inspection, Pharynx Normal, TMs Normal Neck: Full Range of Motion, Non-Tender, Normal, Normal Inspection Respiratory: Chest Non-Tender, Lungs Clear, No Accessory Muscle Use, No Respiratory Distress, Normal Breath Sounds Cardiovascular: No Edema, No JVD, No Murmur, No Gallop, Normal Peripheral Pulses, Regular Rate/Rhythm Breast Exam: Deferred Gastrointestinal: No Organomegaly, Non Tender, No Pulsatile Mass, Normal Bowel Sounds, Soft Genitalia: Deferred Pelvic: Deferred Rectal: Deferred Extremities: No calf tenderness, Normal capillary refill, Normal inspection, Normal range of motion, Non-tender, No pedal edema Neurologic: Alert, 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 Was a procedure done?: No Differential Dx Considerations may include: Head concussion Presyncope X-Ray, Labs, Meds, VS Vital Signs Date Time Temp Pulse Resp B/P (MAP) Pulse Ox O2 Delivery O2 Flow Rate FiO2 03/24/25 16:28 98.7 90 16 147/73 96 98.7 Lab Test 03/24/25 17:34 Range/Units White Blood Count 7.0 # 4.4-10.8 10^3/uL Red Blood Count 3.37 L 4.5-5.90 10^6/uL Hemoglobin 11.1 L 13.5-17.5 g/dL Hematocrit 31.4 L 41.0-53.0 % Mean Corpuscular Volume 93.2 80.0-100.0 fL Mean Corpuscular Hemoglobin 32.8 H 28.0-32.0 pg Mean Corpuscular Hemoglobin Concent 35.2 32.0-36.0 g/dL Red Cell Distribution Width 12.7 11.8-14.3 % Platelet Count 195 140-450 10^3/uL Mean Platelet Volume 6.2 L 6.9-10.8 fL Neutrophils (%) (Auto) 78.6 37.0-80.0 % Lymphocytes (%) (Auto) 11.3 10.0-50.0 % Monocytes (%) (Auto) 8.2 0.0-12.0 % Eosinophils (%) (Auto) 1.2 0.0-7.0 % Basophils (%) (Auto) 0.7 0.0-2.0 % Neutrophils # (Auto) 5.5 1.6-8.6 10 ^3/uL Lymphocytes # (Auto) 0.8 0.4-5.4 10 ^3/uL Monocytes # (Auto) 0.6 0-1.3 10 ^3/uL Eosinophils # (Auto) 0.1 0-0.8 10 ^3/uL Basophils # (Auto) 0 0-0.2 10 ^3/uL Nucleated Red Blood Cells 0.0 % Prothrombin Time 11.4 9.3-11.8 sec Prothrombin Time INR 1.08 0.9-1.15 Sodium Level 136 136-145 mmol/L Potassium Level 4.3 3.5-5.1 mmol/L Chloride Level 103 98-107 mmol/L Carbon Dioxide Level 21 20-31 mmol/L Anion Gap 12 5-15 Blood Urea Nitrogen 18 9-23 mg/dL Creatinine 1.05 0.700-1.30 mg/dL Glomerular Filtration Rate Calc 75 >90 mL/min BUN/Creatinine Ratio 17.1 10.0-20.0 Serum Glucose 77 74-106 mg/dL Calcium Level 8.9 8.7-10.4 mg/dL Magnesium Level 1.9 1.6-2.6 mg/dL Total Bilirubin 1.3 H 0.2-1.0 mg/dL Aspartate Amino Transferase (AST) 36 13-40 U/L Alanine Aminotransferase (ALT) 33 7-40 U/L Alkaline Phosphatase 66 46-116 U/L Troponin I High Sensitivity 7 </=54 ng/L Total Protein 7.4 5.7-8.2 g/dL Albumin 4.1 3.2-4.8 g/dL Time of 1ST Reevaluation: 20:00 Reevaluation 1ST: Unchanged Patient Education/Counseling: Diagnosis, Treatment, Prognosis, Need For Follow Up Family Education/Counseling: No Family Present Comments Patient brought to the hospital status post mechanical fall. Patient was complaining of headache and left upper extremity pain Patient complaining of dizziness CT scan performed, showed no significant intracranial abnormalities. CBC and CMP within normal limits Patient was vitally stable. Patient was recently had pacemaker placement EKGs showed paced rhythm with occasional PVC and a PC Patient will be admitted for inpatient care and device interrogation for possible device malfunctioning SEPSIS Sepsis Screen Date sepsis recognized/suspect: Mar 24, 2025 Time Sepsis recognized/suspect: 1628 Recent Procedure: No On Antibiotic Therapy: No Respiratory Rate >20: No Heart Rate >90: No Temp<36 C (96.8 F) or >38.3 C: No SBP <90 or MAP <65 mmHG: No New Acute Mental Status Change: No Is the patient on CPAP, BIPAP,: No Physician Orders Ptt & Cbc Qd While On Heparin (03/24/25 16:53) Urinalysis (03/24/25 16:53) Head Without Contrast (03/24/25 16:53) Electrocardigram (03/24/25 16:53) Vital Signs Date Time Temp Pulse Resp B/P (MAP) Pulse Ox O2 Delivery O2 Flow Rate FiO2 03/24/25 16:28 98.7 90 16 147/73 96 98.7 Laboratory Tests Test 03/24/25 17:34 White Blood Count 7.0 10^3/uL (4.4-10.8) # Departure 1 Departure Time of Disposition: 22:29 Impression: Primary Impression: Pre-syncope Additional Impression: Head concussion Disposition: ADMITTED INPATIENT Admit to: Tele Condition: Guarded Critical Care Note Critical Care Time?: No Stability Stability form required: No Heart Score Heart Score: Heart Score Response (Comments) Value History Slightly Suspicious 0 EKG Normal 0 Age >65 2 Risk Factors 1 or 2 risk factors 1 Troponin N/A 0 Total 3 MARIE BRANHAM RESDIENT Mar 24, 2025 22:32
[2025-03-24] MEDS ORDERED: ACETAMINOPHEN 325 MG TAB PO PRN (23:00)
[2025-03-24] MEDS ORDERED: ONDANSETRON HCL 4 MG/2 ML VIAL IV PRN (23:00)
[2025-03-25] VITALS (10 sets, daily range): BP systolic 127–165; BP diastolic 54–97; PULSE 50–68; RESP 14–18; TEMP 97.2–98.2; O2SAT 93–100
--- NOTE | 2025-03-25 00:22 | DVHHP2 ---
Admitting Diagnosis: Pacemaker malfunction, s/p fall History of Present Illness History Source: Patient Exam Limitations: No limitations HPI Mr. Jason Núñez is a 74-year-old male with past medical history of hypertension, AFib (on Eliquis), status post pacemaker (recent placed, due to severe bradycardia), who presents with a chief complaint of status post mechanical fall. Per patient fell and hit his head and left side of body on the ground. Subsequently he developed headache, and left-sided upper limb pain. Post fall, he was not able to stand. He denies loss of consciousness, nausea vomiting. Patient reports he does not remember falling. Home Meds Active Scripts Chlordiazepoxide Hcl (Librium) 25 Mg Cp, 25 MG PO TID, #30 CAP Prov:ALEXANDRO DONALD MD 03/23/25 Folic Acid (Folic Acid) 1 Mg Tab, 1 MG PO DAILY, #30 TAB Prov:ALEXANDRO DONALD MD 03/23/25 Thiamine HCl (Thiamine Hydrochloride) 100 Mg Tab, 100 MG PO DAILY, #30 TAB Prov:ALEXANDRO DONALD MD 03/23/25 Magnesium (Magnesium 400 mg) 1 Tab Tab, 1 TAB PO DAILY, #30 TAB Prov:ALEXANDRO DONALD MD 03/23/25 Amlodipine Besylate (Amlodipine Besylate) 10 Mg Tab, 1 TAB PO DAILY, #30 TAB 5 Refills Prov:ALEXANDRO DONALD MD 03/23/25 Apixaban Base (ELIQUIS) 5 Mg Tab, 5 MG PO BID, #60 TAB Prov:ALEXANDRO DONALD MD 03/23/25 Reported Medications Amlodipine Besylate (Amlodipine Besylate) 5 Mg Tab, 5 MG PO BID for 30 Days, MG 03/16/25 Losartan Potassium (Losartan Potassium) 50 Mg Tab, 50 MG PO BID for 30 Days, MG 03/16/25 Aspirin (Aspir-81) 81 Mg Tab, 1 TAB PO DAILY, #30 TAB 5 Refills 03/16/25 Cephalexin Monohydrate (Cephalexin) 500 Mg Cap, 500 MG PO TID, MG 03/16/25 Clopidogrel Bisulfate (Plavix) 75 Mg Tab, 1 TAB PO DAILY, #90 TAB 1 Refill 03/16/25 Metolazone (Metolazone) 2.5 Mg Tab, 2.5 MG PO DAILY for 30 Days, MG 03/16/25 Furosemide (Furosemide) 40 Mg Tab, 40 MG PO BIDD for 30 Days, MG 03/16/25 Past Medical History Cardiac: AFIB, HTN Pulmonary: No pertinent Hx Central Nervous System: No pertinent Hx GI: No pertinent Hx Hemotology/Oncology: No pertinent Hx Hepatobiliary: No pertinent Hx Psychiatric: No pertinent Hx Musculoskeletal: No pertinent Hx Rheumotologic: No pertinent Hx Infectious Disease: No peritnent Hx ENT: No pertinent Hx Renal/: No pertinent Hx Endocrine: No pertinent Hx Dermatology: No pertinent Hx Past Surgical History: Pacemaker Smoker: No Hx (Negative) Alocohol: Occassional Drugs: None Lives with: With family Domestic Violence: Neg Review of Systems Constitutional: Other (fall) Ears, Nose, & Throat: No symptom reported Eyes: No symptom reported Pulmonary/Respiratory: No symptom reported Cardiovascular: No symptom reported Gastrointestinal: No symptom reported Genitourinary: No symptom reported Musculoskeletal: No symptom reported Skin: No symptom reported Psychiatric: No symptom reported Endocrine: No symptom reported Hemotologic/Lymphatic: No symptom reported H&P Exam Vital Signs Vital Signs Date Time Temp Pulse Resp B/P (MAP) Pulse Ox O2 Delivery O2 Flow Rate FiO2 03/24/25 22:37 148 03/24/25 16:28 98.7 16 147/73 96 98.7 General Appeara: Well developed, Well nourished, Normal Appearance Head Exam: Normal inspection Neck Exam: Normal inspection, Non-tender, Normal alignment Eye Exam: bilateral eye Normal inspection, bilateral eye PERRL, bilateral eye EOMI Ear Exam: bilateral ear Auricle normal Nasal Exam: Normal inspection Mouth: Normal Inspection Pulmonary/Respiratory: Normal inspection, Normal breath sounds, Chest non- tender, Lungs clear Cardiovascular/Chest: Normal inspection, Regular rate, Normal Rhythm Peripheral Pulses: 2+ dorsalis pedis (R), 2+ dorsalis pedis (L), 2+ Radial (R), 2+ Radial (L) Abdominal Exam: Normal bowel sounds, Soft, No tenderness Back Exam: Normal inspection 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: Normal hearing, Normal speech, PERRL Neuro/Mental St: Alert, Oriented Appearance: Appropriate appearance, Appropriate insight Thoughts/Psych: Normal thought pattern Skin Exam: Normal inspection, Normal color, Warm/dry SEPSIS Sepsis Screen Date sepsis recognized/suspect: Mar 24, 2025 Time Sepsis recognized/suspect: 1628 Recent Procedure: No On Antibiotic Therapy: No Respiratory Rate >20: No Heart Rate >90: No Temp<36 C (96.8 F) or >38.3 C: No SBP <90 or MAP <65 mmHG: No New Acute Mental Status Change: No Is the patient on CPAP, BIPAP,: No Physician Orders Ptt & Cbc Qd While On Heparin (03/24/25 16:53) Urinalysis (03/24/25 16:53) Head Without Contrast (03/24/25 16:53) Electrocardigram (03/24/25 16:53) Blood Alcohol (03/24/25 23:00) Basic Metabolic Panel (03/25/25 05:00) Basic Metabolic Panel (03/26/25 05:00) Complete Blood Count (03/25/25 05:00) Complete Blood Count (03/26/25 05:00) Enterprise Integration Developer To Assess Pacemaker (03/24/25 23:00) Cardiac Diet-2gna,Lofat,Lochol (03/25/25 Breakfast) Fall Risk Precautions In Place QSHIFT (03/24/25 23:00) Acetaminophen Tablet (Tylenol Tablet) (03/24/25 23:00) Hydrocodone-Acet 5/325mg Tab ([place] (03/24/25 23:00) Famotidine Tablet (Pepcid Tablet) (03/25/25 10:00) Ondansetron Hcl (Zofran) (03/24/25 23:00) Admit (03/24/25 23:00) Stat Ekg For Chest Pain (03/24/25 23:00) Notify Md Of Changes From Base (03/24/25 23:00) Talent Recruiter For 24 Hours (03/24/25 23:00) Emergency Dysrhythmia Protocol (03/24/25 23:00) Rhythm Strips Once Every Shift (03/24/25 23:00) Oxygen By Nasal Cannula (03/24/25 23:00) Communication Order (03/24/25 23:06) Electrocardigram (03/25/25 00:00) Electrocardigram (03/25/25 06:00) Electrocardigram (03/25/25 12:00) Pt Request For Service (03/24/25 23:07) * Accounts Payable Lead Consult (03/24/25 23:07) * Cardiology Consult (03/24/25 23:11) Drug Screen (03/24/25 23:17) Chest Xray 1 View (03/24/25 23:18) Bilirubin, Total (03/25/25 07:00) Troponin-I Hs (03/24/25 23:21) Troponin-I Hs (03/25/25 00:21) Troponin-I Hs (03/25/25 02:21) Vital Signs Date Time Temp Pulse Resp B/P (MAP) Pulse Ox O2 Delivery O2 Flow Rate FiO2 03/24/25 22:37 148 03/24/25 16:28 98.7 90 16 147/73 96 98.7 Laboratory Tests Test 03/24/25 17:34 White Blood Count 7.0 10^3/uL (4.4-10.8) # Labs/Xrays Labs Test 03/24/25 23:50 03/24/25 17:34 Range/Units White Blood Count 7.0 # 4.4-10.8 10^3/uL Red Blood Count 3.37 L 4.5-5.90 10^6/uL Hemoglobin 11.1 L 13.5-17.5 g/dL Hematocrit 31.4 L 41.0-53.0 % Mean Corpuscular Volume 93.2 80.0-100.0 fL Mean Corpuscular Hemoglobin 32.8 H 28.0-32.0 pg Mean Corpuscular Hemoglobin Concent 35.2 32.0-36.0 g/dL Red Cell Distribution Width 12.7 11.8-14.3 % Platelet Count 195 140-450 10^3/uL Mean Platelet Volume 6.2 L 6.9-10.8 fL Neutrophils (%) (Auto) 78.6 37.0-80.0 % Lymphocytes (%) (Auto) 11.3 10.0-50.0 % Monocytes (%) (Auto) 8.2 0.0-12.0 % Eosinophils (%) (Auto) 1.2 0.0-7.0 % Basophils (%) (Auto) 0.7 0.0-2.0 % Neutrophils # (Auto) 5.5 1.6-8.6 10 ^3/uL Lymphocytes # (Auto) 0.8 0.4-5.4 10 ^3/uL Monocytes # (Auto) 0.6 0-1.3 10 ^3/uL Eosinophils # (Auto) 0.1 0-0.8 10 ^3/uL Basophils # (Auto) 0 0-0.2 10 ^3/uL Nucleated Red Blood Cells 0.0 % Prothrombin Time 11.4 9.3-11.8 sec Prothrombin Time INR 1.08 0.9-1.15 Sodium Level 136 136-145 mmol/L Potassium Level 4.3 3.5-5.1 mmol/L Chloride Level 103 98-107 mmol/L Carbon Dioxide Level 21 20-31 mmol/L Anion Gap 12 5-15 Blood Urea Nitrogen 18 9-23 mg/dL Creatinine 1.05 0.700-1.30 mg/dL Glomerular Filtration Rate Calc 75 >90 mL/min BUN/Creatinine Ratio 17.1 10.0-20.0 Serum Glucose 77 74-106 mg/dL Calcium Level 8.9 8.7-10.4 mg/dL Magnesium Level 1.9 1.6-2.6 mg/dL Total Bilirubin 1.3 H 0.2-1.0 mg/dL Aspartate Amino Transferase (AST) 36 13-40 U/L Alanine Aminotransferase (ALT) 33 7-40 U/L Alkaline Phosphatase 66 46-116 U/L Total Protein 7.4 5.7-8.2 g/dL Albumin 4.1 3.2-4.8 g/dL Assessment/Plan Problem List: (1) Syncope (2) Fall (3) Pacemaker malfunction Plan This is a 74 yo male with known history of atrial fibrillation, hypertension, recent pacemaker placement x 1 week ago, recently discharged from this facility and taken off hospice who presents with status post mechanical fall, found to have 1. Pacemaker malfunction 2. status post fall 3. Syncope 4. Hypertension 5. Chronic a fib Plan Admit Telemetry unit Cardiology consultation, 2d echocardiogram Pacemaker interrogation Fall Precautions PT evaluation Social Service consultation Continue home medications as needed when reconciled Discussed all above with patient who verbalizes agreement and understanding of care plan. All questions were answered. Discussed with supervising MD. Plan discussed with: Patient, Other Code Visit Code Visit Total Time (mins): 45 Additional Comments Additional Comments Additional Comments Patient's chart is reviewed and seen and evaluated. Patient is seen and evaluated and admitted by nurse practitioner. I agree with her evaluation, documentation, assessment and care plan as outlined. DRISS STOUT Mar 25, 2025 00:22 BEBE OSBORNE MD Mar 25, 2025 12:12
--- NOTE | 2025-03-25 00:33 | DVH ---
CHEST RADIOGRAPH Indication: admission Technique: Single frontal view of the chest was obtained COMPARISON: XY CHEST PORTABLE on DOS: 03/19/25, XY CHEST PORTABLE on DOS: 03/17/25, XY CHEST PORTABLE o n DOS: 03/15/25 FINDINGS: Lines and Tubes: None Lungs: Clear Pleura: No effusion. No pneumothorax. Cardiomediastinal contours: Cardiomegaly. Bones: Unremarkable IMPRESSION: 1. Cardiomegaly.
[2025-03-25] MEDS: HYDROcodone-ACET 5/325MG TAB PO PRN (03:05)
[2025-03-25 05:20] LABS: Hematocrit 28.5 % (41.0-53.0); Mean Corpuscular Volume 93.3 fL (80.0-100.0); Nucleated Red Blood Cells % 0.1 %
[2025-03-25 05:22] LABS: Hemoglobin 10.4 g/dL (13.5-17.5); Mean Corpuscular Hemoglobin 34.0 pg (28.0-32.0)
[2025-03-25 05:31] LABS: Anion Gap 8 (5-15); Calcium 8.9 mg/dL (8.7-10.4); Carbon Dioxide 25 mmol/L (20-31); Chloride 104 mmol/L (98-107); Potassium 4.3 mmol/L (3.5-5.1); Sodium 137 mmol/L (136-145)
[2025-03-25 05:37] LABS: BUN/Creatinine Ratio 16.5 (10.0-20.0); Blood Urea Nitrogen 15 mg/dL (9-23); Glucose 97 mg/dL (74-106)
[2025-03-25] MEDS: FAMOTIDINE 20 MG TAB PO SCH (10:50)
--- NOTE | 2025-03-25 13:39 | DVHINCON2 ---
Date of service: Mar 25, 2025 History of Present Illness HPI Patient is a 74-year-old gentleman who presented after mechanical fall. He mentions that he was walking and his slippers got to the door mat and he fell down. Denies loss of consciousness. He mentions that he hit his head and left side of the body. Later he complained of headache and left-sided body pain. Cardiology is involved for cardiac aspects of care. It is of note that the patient did have a pacemaker (micra) implanted in March 17, 2025. Home Meds Active Scripts Chlordiazepoxide Hcl (Librium) 25 Mg Cp, 25 MG PO TID, #30 CAP Prov:ALEXANDRO DONALD MD 03/23/25 Folic Acid (Folic Acid) 1 Mg Tab, 1 MG PO DAILY, #30 TAB Prov:ALEXANDRO DONALD MD 03/23/25 Thiamine HCl (Thiamine Hydrochloride) 100 Mg Tab, 100 MG PO DAILY, #30 TAB Prov:ALEXANDRO DONALD MD 03/23/25 Magnesium (Magnesium 400 mg) 1 Tab Tab, 1 TAB PO DAILY, #30 TAB Prov:ALEXANDRO DONALD MD 03/23/25 Amlodipine Besylate (Amlodipine Besylate) 10 Mg Tab, 1 TAB PO DAILY, #30 TAB 5 Refills Prov:ALEXANDRO DONALD MD 03/23/25 Apixaban Base (ELIQUIS) 5 Mg Tab, 5 MG PO BID, #60 TAB Prov:ALEXANDRO DONALD MD 03/23/25 Reported Medications Amlodipine Besylate (Amlodipine Besylate) 5 Mg Tab, 5 MG PO BID for 30 Days, MG 03/16/25 Losartan Potassium (Losartan Potassium) 50 Mg Tab, 50 MG PO BID for 30 Days, MG 03/16/25 Aspirin (Aspir-81) 81 Mg Tab, 1 TAB PO DAILY, #30 TAB 5 Refills 03/16/25 Cephalexin Monohydrate (Cephalexin) 500 Mg Cap, 500 MG PO TID, MG 03/16/25 Clopidogrel Bisulfate (Plavix) 75 Mg Tab, 1 TAB PO DAILY, #90 TAB 1 Refill 03/16/25 Metolazone (Metolazone) 2.5 Mg Tab, 2.5 MG PO DAILY for 30 Days, MG 03/16/25 Furosemide (Furosemide) 40 Mg Tab, 40 MG PO BIDD for 30 Days, MG 8/28/25 Past Medical History Others Past medical history includes hypertension, atrial fibrillation/flutter (on Eliquis as outpatient), status post pacemaker (mitral/Medtronic) implantation (in March 17, 2025) secondary to bradyarrhythmia. He also has history of hypokalemia Alocohol: None Drugs: None Review of Systems Constitutional: No symptom reported Cardiovascular: No symptom reported All Other Systems Fourteen point review of system was performed. Relevant findings as per above and as per HPI. Otherwise negative H&P Exam Vital Signs Vital Signs Date Time Temp Pulse Resp B/P (MAP) Pulse Ox O2 Delivery O2 Flow Rate FiO2 03/25/25 13:05 97.4 54 16 132/54 (80) 100 97.4 03/25/25 08:25 Room Air* 0 21 General Appeara: Well developed Head Exam: Normal inspection Eye Exam: bilateral eye PERRL Nasal Exam: Normal inspection Mouth: Normal Inspection Pulmonary/Respiratory: Lungs clear Cardiovascular/Chest: Regular rate, Systolic murmur Peripheral Pulses: 2+ carotid (R), 2+ carotid (L), 2+ femoral (R), 2+ femoral (L), 2+ dorsalis pedis (R), 2+ dorsalis pedis (L) Abdominal Exam: Normal bowel sounds, Soft Neuro/Mental St: Alert, Oriented Appearance: Appropriate appearance Eye contact/ Speech: Cooperative Labs/Xrays Labs Test 03/25/25 05:01 03/24/25 17:34 Range/Units White Blood Count 4.9 # 4.4-10.8 10^3/uL Red Blood Count 3.06 L 4.5-5.90 10^6/uL Hemoglobin 10.4 L 13.5-17.5 g/dL Hematocrit 28.5 L 41.0-53.0 % Mean Corpuscular Volume 93.3 80.0-100.0 fL Mean Corpuscular Hemoglobin 34.0 H 28.0-32.0 pg Mean Corpuscular Hemoglobin Concent 36.5 H 32.0-36.0 g/dL Red Cell Distribution Width 12.5 11.8-14.3 % Platelet Count 181 140-450 10^3/uL Mean Platelet Volume 6.2 L 6.9-10.8 fL Neutrophils (%) (Auto) 60.9 37.0-80.0 % Lymphocytes (%) (Auto) 21.1 10.0-50.0 % Monocytes (%) (Auto) 15.2 H 0.0-12.0 % Eosinophils (%) (Auto) 2.0 0.0-7.0 % Basophils (%) (Auto) 0.8 0.0-2.0 % Neutrophils # (Auto) 3.0 1.6-8.6 10 ^3/uL Lymphocytes # (Auto) 1.0 0.4-5.4 10 ^3/uL Monocytes # (Auto) 0.7 0-1.3 10 ^3/uL Eosinophils # (Auto) 0.1 0-0.8 10 ^3/uL Basophils # (Auto) 0 0-0.2 10 ^3/uL Nucleated Red Blood Cells 0.1 % Sodium Level 137 136-145 mmol/L Potassium Level 4.3 3.5-5.1 mmol/L Chloride Level 104 98-107 mmol/L Carbon Dioxide Level 25 20-31 mmol/L Anion Gap 8 5-15 Blood Urea Nitrogen 15 9-23 mg/dL Creatinine 0.91 0.700-1.30 mg/dL Glomerular Filtration Rate Calc 90 >90 mL/min BUN/Creatinine Ratio 16.5 10.0-20.0 Serum Glucose 97 74-106 mg/dL Calcium Level 8.9 8.7-10.4 mg/dL Total Bilirubin 1.1 H 0.2-1.0 mg/dL Troponin I High Sensitivity 6 </=54 ng/L Prothrombin Time 11.4 9.3-11.8 sec Prothrombin Time INR 1.08 0.9-1.15 Magnesium Level 1.9 1.6-2.6 mg/dL Aspartate Amino Transferase (AST) 36 13-40 U/L Alanine Aminotransferase (ALT) 33 7-40 U/L Alkaline Phosphatase 66 46-116 U/L Total Protein 7.4 5.7-8.2 g/dL Albumin 4.1 3.2-4.8 g/dL Plasma/Serum Blood Alcohol < 3.0 <10 mg/dL Microbiology Date/Time Source Procedure Growth Status 03/25/25 03:51 Nose MRSA Screen - Final Complete Assessment/Plan Plan Patient is a 74-year-old gentleman who presented after mechanical fall. He mentions that he was walking and his slippers got to the door mat and he fell down. Denies loss of consciousness. He mentions that he hit his head and left side of the body. Later he complained of headache and left-sided body pain. Cardiology is involved for cardiac aspects of care. It is of note that the angelita mello did have a pacemaker (micra) implanted in March 17, 2025. Not in acute distress. Lying flat in bed. No JVD. Mucosa is pink and wet. No carotid bruit. No goiter. Lungs are clear to auscultation. Not using accessory muscles of breathing. Cardiac: Regular, no thrill/gallop. Systolic murmur 2/6 in apex is heard. Abdomen is soft. Bowel sound is positive. There is no gross mass/hepatomegaly. There is no tenderness. Extremities do not reveal edema. Dorsalis pedis 2+ bilateral. Areas of hematoma seen in bilateral upper extremities. Past medical history includes hypertension, atrial fibrillation/flutter (on [facility] as outpatient), status post pacemaker (mitral/Medtronic) implantation (in March 17, 2025) secondary to bradyarrhythmia. He also has history of hypokalemia Echocardiogram of March 16, 2025 revealed ejection fraction of 55%, left atrial enlargement and mild left ventricular hypertrophy Hemoglobin: 11.1 - 10.4 Creatinine: 1.05 - 0.91 Potassium: 4.3 - 4.3 Troponin (high sensitive): 7 - 6 - 9 - 6 Magnesium: 1.9 Chest x-ray revealed: Lines and Tubes: None Lungs: Clear Pleura: No effusion. No pneumothorax. Cardiomediastinal contours: Cardiomegaly. Bones: Unremarkable IMPRESSION: 1. Cardiomegaly. CT of the head revealed: [id number] diffuse brain Atrophy. Moderate chronic small-vessel ischemic changes. No hemorrhages, masses, mass effect, midline shift, herniation or cytotoxic edema following a large vascular territory. No intra-axial or extra-axial fluid collections. No evidence of hydrocephalus. The basal cisterns are patent. The pituitary gland, sella and parasellar regions are unremarkable. The cerebellar tonsils are in normal position. Posterior fossa arachnoid cyst versus prominent cisterna magna. Limited evaluation of the cerebellum due to motion artifact with no gross abnormalities noted. The orbits and globes are unremarkable. The paranasal sinuses and mastoids are clear. There are no worrisome calvarial lesions. Impre ssion: Limited evaluation due to motion. Otherwise, no evidence of acute intracranial abnormality. Tele reveals sinus rhythm, occasions of PVC are seen. Occasions of V pacing at a heart rate of around 50 is seen. Patient is a 74-year-old gentleman who presented with mechanical fall. He denies loss of consciousness. Cardiac etiology for presentation is less likely. Syncope is less likely. Still, as the patient has a recent pacemaker implanted, it is interrogation can be justified Status post mechanical fall Hypertension Atrial fibrillation Status post pacemaker (Medtronic/micra) implantation History of hypokalemia Cardiac suggestion for management: Manage on telemetry Follow-up electrolytes and kidney function tests and correct abnormalities. Keep potassium above 4 and magnesium above 2 EKG Interrogation of pacemaker/Medtronic can be justified Recognizing history of atrial fibrillation and comorbidities, CHADS-VASc score is elevated and long-term continuation of full anticoagulation is advised. (patient is usually on Eliquis as outpatient) Further evaluation and management depends on the above and clinical course Thank you for consultation A total of 75 minutes was spent reviewing the patient record, examining the patient, making a diagnostic and therapeutic plan, discussing this plan with medical personnel, following up on diagnostic studies and following the patient for clinical stability excluding any and all procedures. At least 50% of this time was spent in direct, [id number] contact. Thank you for allowing me to participate in this patient's care. Further recommendations will depend on patient's clinical course. Please do not hesitate to contact me if you have any questions or concerns. This medical document was created using electronic medical record system with [employer] computerized dictation system. Although this document has been carefully reviewed, there may still be some phonetic and typographical errors. These areas are purely typographical due to the imperfection of the software programs, and do not reflect any compromise in the patient's medical care. Plan discussed with: Patient, Other (nurse) RACHEL MARTINEZ MD Mar 25, 2025 13:39
[2025-03-25] MEDS: FUROSEMIDE 40 MG TAB PO SCH (18:11)
[2025-03-25] MEDS ORDERED: APIXABAN 5 MG TAB PO SCH (22:00)
[2025-03-26] VITALS (9 sets, daily range): BP systolic 119–166; BP diastolic 71–77; PULSE 51–84; RESP 16–18; TEMP 97.5–98.3; O2SAT 92–98
[2025-03-26 05:45] LABS: Chloride 105 mmol/L (98-107); Potassium 4.2 mmol/L (3.5-5.1); Sodium 137 mmol/L (136-145)
[2025-03-26 05:46] LABS: Anion Gap 7 (5-15); Carbon Dioxide 25 mmol/L (20-31)
[2025-03-26 05:47] LABS: Calcium 8.5 mg/dL (8.7-10.4); Hematocrit 26.4 % (41.0-53.0); Hemoglobin 9.6 g/dL (13.5-17.5); Mean Corpuscular Hemoglobin 34.0 pg (28.0-32.0); Mean Corpuscular Volume 93.5 fL (80.0-100.0); Nucleated Red Blood Cells % 0.0 %
[2025-03-26 05:52] LABS: BUN/Creatinine Ratio 16.4 (10.0-20.0); Blood Urea Nitrogen 19 mg/dL (9-23); Glucose 96 mg/dL (74-106)
--- NOTE | 2025-03-26 08:40 | DVHPN2 ---
Progress Note - Dictate Date Seen: Mar 26, 2025 Medical Necessity Reason Pt with a Central, PICC or Fol: No vital signs Vital Sign Date Time Temp Pulse Resp B/P (MAP) Pulse Ox O2 Delivery O2 Flow Rate FiO2 03/26/25 07:02 139/76 03/26/25 05:00 97.6 52 18 96 97.6 03/25/25 20:00 Room Air* 0 21 Total Intake and Output 03/25/25 03/25/25 03/26/25 14:59 22:59 06:59 Intake Total 900 ml 1000 ml 734 ml Output Total 850 ml Balance 900 ml 1000 ml -116 ml medications Current Medications Medications Dose Ordered Sig/Lucio Route Start Time Stop Time Status Last Admin Dose Admin Acetaminophen 650 mg Q6HPRN PRN PO 03/24/25 23:00 Acetaminophen/ Hydrocodone Bitart 1 tab Q6HPRN PRN PO 03/24/25 23:00 03/25/25 19:52 1 TAB Famotidine 20 mg BID PO 03/25/25 10:00 03/25/25 21:55 20 MG Ondansetron HCl 4 mg Q6HPRN PRN IV 03/24/25 23:00 Amlodipine Besylate 5 mg BID PO 03/25/25 22:00 03/25/25 21:56 5 MG Aspirin 81 mg DAILY PO 03/26/25 10:00 Furosemide 40 mg BIDD PO 03/25/25 18:00 03/26/25 07:02 40 MG Enoxaparin Sodium 40 mg DAILY SC 03/26/25 10:00 laboratory and microbiology Laboratory Tests 03/26/25 04:57 Test 03/26/25 04:57 Range/Units Serum Glucose 96 74-106 mg/dL Assessment/Plan Patient is a 74-year-old gentleman who presented after mechanical fall. He mentions that he was walking and his slippers got to the door mat and he fell down. Denies loss of consciousness. He mentions that he hit his head and left side of the body. Later he complained of headache and left-sided body pain. Cardiology is involved for cardiac aspects of care. It is of note that the patient did have a pacemaker (micra) implanted in March 17, 2025. Not in acute distress. Lying flat in bed. No JVD. Mucosa is pink and wet. No carotid bruit. No goiter. Lungs are clear to auscultation. Not using accessory muscles of breathing. Cardiac: Regular, no thrill/gallop. Systolic murmur 2/6 in apex is heard. Abdomen is soft. Bowel sound is positive. There is no gross mass/hepatomegaly. There is no tenderness. Extremities do not reveal edema. Dorsalis pedis 2+ bilateral. Areas of hematoma seen in bilateral upper extremities. Past medical history includes hypertension, atrial fibrillation/flutter (on Eliquis as outpatient), status post pacemaker (mitral/Medtronic) implantation (in March 17, 2025) secondary to bradyarrhythmia. He also has history of hypokalemia Echocardiogram of March 16, 2025 revealed ejection fraction of 55%, left atrial enlargement and mild left ventricular hypertrophy Hemoglobin: 11.1 - 10.4 - 9.6 Creatinine: 1.05 - 0.91 - 1.16 Potassium: 4.3 - 4.3 - 4.2 Troponin (high sensitive): 7 - 6 - 9 - 6 Magnesium: 1.9 Chest x-ray revealed: Lines and Tubes: None Lungs: Clear Pleura: No effusion. No pneumothorax. Cardiomediastinal contours: Cardiomegaly. Bones: Unremarkable IMPRESSION: 1. Cardiomegaly. CT of the head revealed: [id number] diffuse brain Atrophy. Moderate chronic small-vessel ischemic changes. No hemorrhages, masses, mass effect, midline shift, herniation or cytotoxic edema following a large vascular territory. No intra-axial or extra-axial fluid collections. No evidence of hydrocephalus. The basal cisterns are patent. The pituitary gland, sella and parasellar regions are unremarkable. The cerebellar tonsils are in normal position. Posterior fossa arachnoid cyst versus prominent cisterna magna. Limited evaluation of the cerebellum due to motion artifact with no gross abnormalities noted. The orbits and globes are unremarkable. The paranasal sinuses and mastoids are clear. There are no worrisome calvarial lesions. Impression: Limited evaluation due to motion. Otherwise, no evidence of acute intracranial abnormality. EKG revealed A-fib with MVR and occasion of ventricular pacing Tele reveals sinus rhythm, occasions of PVC are seen. Occasions of V pacing at a heart rate of around 50 is seen. Patient is a 74-year-old gentleman who presented with mechanical fall. He denies loss of consciousness. Cardiac etiology for presentation is less likely. Syncope is less likely. Still, as the patient has a recent pacemaker implanted, it is interrogation can be justified Status post mechanical fall Hypertension Atrial fibrillation Status post pacemaker (Medtronic/micra) implantation History of hypokalemia Cardiac suggestion for management: Manage on telemetry Follow-up electrolytes and kidney function tests and correct abnormalities. Keep potassium above 4 and magnesium above 2 Interrogation of pacemaker/Medtronic can be justified Recognizing history of atrial fibrillation and comorbidities, CHADS-VASc score is elevated and long-term continuation of full anticoagulation is advised. (patient is usually on Eliquis as outpatient) . For now you can continue therapeutic Lovenox dose Further evaluation and management depends on the above and clinical course A total of 55 minutes was spent reviewing the patient record, examining the patient, making a diagnostic and therapeutic plan, discussing this plan with medical personnel, following up on diagnostic studies and following the patient for clinical stability excluding any and all procedures. At least 50% of this time was spent in direct, [id number] contact. Thank you for allowing me to participate in this patient's care. Further recommendations will depend on patient's clinical course. Please do not hesitate to contact me if you have any questions or concerns. This medical document was created using electronic medical record system with [employer] computerized dictation system. Although this document has been carefully reviewed, there may still be some phonetic and typographical errors. These areas are purely typographical due to the imperfection of the software programs, and do not reflect any compromise in the patient's medical care. Plan discussed with: Patient, Other (nurse) RACHEL MARTINEZ MD Mar 26, 2025 08:40
[2025-03-26] MEDS ORDERED: ENOXAPARIN SOD 40 MG/0.4 ML SYRINGE SC SCH ×2 (10:00→10:30)
[2025-03-26] MEDS: ASPirin-EC 81 mg tab PO SCH (11:10)
--- NOTE | 2025-03-26 17:15 | DVHPN2 ---
Progress Note - Dictate Date Seen: Mar 26, 2025 Medical Necessity Reason Pt with a Central, PICC or Fol: No Subjective He is clinically stable. Ambulating in the room. Wants to go home. Pending he has pacemaker evaluation apparently wanted be done till tomorrow weekthursday. vital signs Vital Sign Date Time Temp Pulse Resp B/P (MAP) Pulse Ox O2 Delivery O2 Flow Rate FiO2 03/26/25 17:10 97.7 57 18 166/74 (104) 98 97.7 03/26/25 08:05 Room Air* 0 21 Total Intake and Output 03/25/25 03/25/25 03/26/25 15:00 23:00 07:00 Intake Total 900 ml 1000 ml 734 ml Output Total 850 ml Balance 900 ml 1000 ml -116 ml medications Current Medications Medications Dose Ordered Sig/Lucio Route Start Time Stop Time Status Last Admin Dose Admin Acetaminophen 650 mg Q6HPRN PRN PO 03/24/25 23:00 Acetaminophen/ Hydrocodone Bitart 1 tab Q6HPRN PRN PO 03/24/25 23:00 03/25/25 19:52 1 TAB Famotidine 20 mg BID PO 03/25/25 10:00 03/26/25 11:10 20 MG Ondansetron HCl 4 mg Q6HPRN PRN IV 03/24/25 23:00 Amlodipine Besylate 5 mg BID PO 03/25/25 22:00 03/26/25 11:11 5 MG Aspirin 81 mg DAILY PO 03/26/25 10:00 03/26/25 11:10 81 MG Furosemide 40 mg BIDD PO 03/25/25 18:00 03/26/25 07:02 40 MG Apixaban 5 mg BID PO 03/26/25 22:00 objective Alert awake oriented x3. HEENT neck supple no JVD. Heart regular rate and rhythm S1 and S2 without murmurs. Lungs fair air movement chest equal to expansion no wheezing. Abdomen soft nontender positive bowel sounds. Extremities no edema positive pulses. Left arm is covered with a dressing for chronic wound. laboratory and microbiology Laboratory Tests 03/26/25 04:57 Test 03/26/25 04:57 Range/Units Serum Glucose 96 74-106 mg/dL Assessment/Plan His cardiac workup so far is normal. Once pacemaker interrogation is done and if no issues he can be discharged home. Discussed with the patient and nurse regarding care plan. Continue present management overnight. Problems(with codes): (1) Pre-syncope (2) Bradycardia Dietary Evaluation Review Comments: 1) Initiate MVI @ 1 tb qd 2) Continue cardiac diet 3) Encourage optimal PO intake 4) Follow-up with cardiology 5) Continue to monitor I&O, labs, and skin integrity Expected Outcomes/Goals: 1) appetite and labs to improve 2) wound to improve 3) f/u in 3-5 days Plan discussed with: Patient BEBE OSBORNE MD Mar 26, 2025 17:15
[2025-03-26] MEDS: APIXABAN 5 MG TAB PO SCH (21:31)
[2025-03-27] VITALS (7 sets, daily range): BP systolic 124–135; BP diastolic 51–70; PULSE 50–61; RESP 16–19; TEMP 97.6–98.2; O2SAT 93–98
--- NOTE | 2025-03-27 08:21 | ECG ---
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
--- NOTE | 2025-03-27 08:35 | DVHPN2 ---
Progress Note - Dictate Date Seen: Mar 27, 2025 Medical Necessity Reason Pt with a Central, PICC or Fol: No vital signs Vital Sign Date Time Temp Pulse Resp B/P (MAP) Pulse Ox O2 Delivery O2 Flow Rate FiO2 03/27/25 06:27 132/68 03/27/25 05:00 97.9 59 18 94 97.9 03/26/25 20:00 Room Air* 0 21 Total Intake and Output 03/26/25 03/26/25 03/27/25 15:00 23:00 07:00 Intake Total 1200 ml 240 ml Balance 1200 ml 240 ml medications Current Medications Medications Dose Ordered Sig/Lucio Route Start Time Stop Time Status Last Admin Dose Admin Acetaminophen 650 mg Q6HPRN PRN PO 03/24/25 23:00 Acetaminophen/ Hydrocodone Bitart 1 tab Q6HPRN PRN PO 03/24/25 23:00 03/25/25 19:52 1 TAB Famotidine 20 mg BID PO 03/25/25 10:00 03/26/25 21:31 20 MG Ondansetron HCl 4 mg Q6HPRN PRN IV 03/24/25 23:00 Amlodipine Besylate 5 mg BID PO 03/25/25 22:00 03/26/25 21:31 5 MG Aspirin 81 mg DAILY PO 03/26/25 10:00 03/26/25 11:10 81 MG Furosemide 40 mg BIDD PO 03/25/25 18:00 03/27/25 06:27 40 MG Apixaban 5 mg BID PO 03/26/25 22:00 03/26/25 21:31 5 MG laboratory and microbiology Laboratory Tests 03/26/25 04:57 Test 03/26/25 04:57 Range/Units Serum Glucose 96 74-106 mg/dL Assessment/Plan Patient is a 74-year-old gentleman who presented after mechanical fall. He mentions that he was walking and his slippers got to the door mat and he fell down. Denies loss of consciousness. He mentions that he hit his head and left side of the body. Later he complained of headache and left-sided body pain. Cardiology is involved for cardiac aspects of care. It is of note that the patient did have a pacemaker (micra) implanted in March 17, 2025. Not in acute distress. Lying flat in bed. No JVD. Mucosa is pink and wet. No carotid bruit. No goiter. Lungs are clear to auscultation. Not using accessory muscles of breathing. Cardiac: Regular, no thrill/gallop. Systolic murmur 2/6 in apex is heard. Abdomen is soft. Bowel sound is positive. There is no gross mass/hepatomegaly. There is no tenderness. Extremities do not reveal edema. Dorsalis pedis 2+ bilateral. Areas of hematoma seen in bilateral upper extremities. Past medical history includes hypertension, atrial fibrillation/flutter (on Eliquis as outpatient), status post pacemaker (mitral/Medtronic) implantation (in March 17, 2025) secondary to bradyarrhythmia. He also has history of hypokalemia Echocardiogram of March 16, 2025 revealed ejection fraction of 55%, left atrial enlargement and mild left ventricular hypertrophy Hemoglobin: 11.1 - 10.4 - 9.6 Creatinine: 1.05 - 0.91 - 1.16 Potassium: 4.3 - 4.3 - 4.2 Troponin (high sensitive): 7 - 6 - 9 - 6 Magnesium: 1.9 Chest x-ray revealed: Lines and Tubes: None Lungs: Clear Pleura: No effusion. No pneumothorax. Cardiomediastinal contours: Cardiomegaly. Bones: Unremarkable IMPRESSION: 1. Cardiomegaly. CT of the head revealed: [id number] diffuse brain Atrophy. Moderate chronic small-vessel ischemic changes. No hemorrhages, masses, mass effect, midline shift, herniation or cytotoxic edema following a large vascular territory. No intra-axial or extra-axial fluid collections. No evidence of hydrocephalus. The basal cisterns are patent. The pituitary gland, sella and parasellar regions are unremarkable. The cerebellar tonsils are in normal position. Posterior fossa arachnoid cyst versus prominent cisterna magna. Limited evaluation of the cerebellum due to motion artifact with no gross abnormalities noted. The orbits and globes are unremarkable. The paranasal sinuses and mastoids are clear. There are no worrisome calvarial lesions. Impression: Limited evaluation due to motion. Otherwise, no evidence of acute intracranial abnormality. EKG revealed A-fib with MVR and occasion of ventricular pacing Tele reveals sinus rhythm, occasions of PVC are seen. Occasions of V pacing at a heart rate of around 50 is seen. Patient is a 74-year-old gentleman who presented with mechanical fall. He denies loss of consciousness. Cardiac etiology for presentation is less likely. Syncope is less likely. Still, as the patient has a recent pacemaker implanted, it is interrogation can be justified Status post mechanical fall Hypertension Atrial fibrillation Status post pacemaker (Medtronic/micra) implantation History of hypokalemia Cardiac suggestion for management: Manage on telemetry Follow-up electrolytes and kidney function tests and correct abnormalities. Keep potassium above 4 and magnesium above 2 Awaiting Interrogation of pacemaker/Medtronic Recognizing history of atrial fibrillation and comorbidities, CHADS-VASc score is elevated and long-term continuation of full anticoagulation is advised. (patient is usually on Eliquis as outpatient) You can stop ASA and continue with Eliquis Further evaluation and management depends on the above and clinical course A total of 55 minutes was spent reviewing the patient record, examining the patient, making a diagnostic and therapeutic plan, discussing this plan with medical personnel, following up on diagnostic studies and following the patient for clinical stability excluding any and all procedures. At least 50% of this time was spent in direct, [id number] contact. Thank you for allowing me to participate in this patient's care. Further recommendations will depend on patient's clinical course. Please do not hesitate to contact me if you have any questions or concerns. This medical document was created using electronic medical record system with [employer] computerized dictation system. Although this document has been carefully reviewed, there may still be some phonetic and typographical errors. These areas are purely typographical due to the imperfection of the software programs, and do not reflect any compromise in the patient's medical care. Dietary Evaluation Review Comments: 1) Initiate MVI @ 1 tb qd 2) Continue cardiac diet 3) Encourage optimal PO intake 4) Follow-up with cardiology 5) Continue to monitor I&O, labs, and skin integrity Expected Outcomes/Goals: 1) appetite and labs to improve 2) wound to improve 3) f/u in 3-5 days Plan discussed with: Patient, Other (nurse) RACHEL MARTINEZ MD Mar 27, 2025 08:35
[2025-03-27 10:37] LABS: Hepatitis B Surface Antigen Negative (Negative); Hepatitis C Antibody Negative (Negative)
--- NOTE | 2025-03-27 13:47 | ECG ---
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
--- NOTE | 2025-03-27 14:40 | DVHDS2 ---
Discharge Summary Date of Admission Mar 24, 2025 at 23:00 Date of Discharge: Mar 27, 2025 Admitting Diagnosis Mechanical fall, rule out pacemaker malfunction Labs/Diagnostic Data: Laboratory Results Test 03/26/25 04:57 03/25/25 05:01 03/24/25 17:34 White Blood Count 4.1 10^3/uL (4.4-10.8) Red Blood Count 2.83 10^6/uL (4.5-5.90) Hemoglobin 9.6 g/dL (13.5-17.5) Hematocrit 26.4 % (41.0-53.0) Mean Corpuscular Volume 93.5 fL (80.0-100.0) Mean Corpuscular Hemoglobin 34.0 pg (28.0-32.0) Mean Corpuscular Hemoglobin Concent 36.4 g/dL (32.0-36.0) Red Cell Distribution Width 12.5 % (11.8-14.3) Platelet Count 172 10^3/uL (140-450) Mean Platelet Volume 6.7 fL (6.9-10.8) Neutrophils (%) (Auto) 49.3 % (37.0-80.0) Lymphocytes (%) (Auto) 28.5 % (10.0-50.0) Monocytes (%) (Auto) 16.9 % (0.0-12.0) Eosinophils (%) (Auto) 4.2 % (0.0-7.0) Basophils (%) (Auto) 1.1 % (0.0-2.0) Neutrophils # (Auto) 2.0 10 ^3/uL (1.6-8.6) Lymphocytes # (Auto) 1.2 10 ^3/uL (0.4-5.4) Monocytes # (Auto) 0.7 10 ^3/uL (0-1.3) Eosinophils # (Auto) 0.2 10 ^3/uL (0-0.8) Basophils # (Auto) 0 10 ^3/uL (0-0.2) Nucleated Red Blood Cells 0.0 % Sodium Level 137 mmol/L (136-145) Potassium Level 4.2 mmol/L (3.5-5.1) Chloride Level 105 mmol/L (98-107) Carbon Dioxide Level 25 mmol/L (20-31) Anion Gap 7 (5-15) Blood Urea Nitrogen 19 mg/dL (9-23) Creatinine 1.16 mg/dL (0.700-1.30) Glomerular Filtration Rate Calc 67 mL/min (>90) BUN/Creatinine Ratio 16.4 (10.0-20.0) Serum Glucose 96 mg/dL (74-106) Calcium Level 8.5 mg/dL (8.7-10.4) Total Bilirubin 1.1 mg/dL (0.2-1.0) Troponin I High Sensitivity 6 ng/L (</=54) Hepatitis B Surface Antigen Negative (Negative) Hepatitis C Antibody Negative (Negative) Prothrombin Time 11.4 sec (9.3-11.8) Prothrombin Time INR 1.08 (0.9-1.15) Magnesium Level 1.9 mg/dL (1.6-2.6) Aspartate Amino Transferase (AST) 36 U/L (13-40) Alanine Aminotransferase (ALT) 33 U/L (7-40) Alkaline Phosphatase 66 U/L (46-116) Total Protein 7.4 g/dL (5.7-8.2) Albumin 4.1 g/dL (3.2-4.8) Plasma/Serum Blood Alcohol < 3.0 mg/dL (<10) Other Laboratory Tests 03/26/25 04:57 Brief Hx & Hospital Course: HPI Mr. Jason Núñez is a 74-year-old male with past medical history of hypertension, AFib (on Eliquis), status post pacemaker (recent placed, due to severe bradycardia), who presents with a chief complaint of status post mechanical fall. Per patient fell and hit his head and left side of body on the ground. Subsequently he developed headache, and left-sided upper limb pain. Post fall, he was not able to stand. He denies loss of consciousness, nausea vomiting. Patient reports he does not remember falling. Course of hospitalization: Patient had cardiology consultation. Pacemaker interrogation was performed. Review of the patient's bedside telemetry reveals heart rate not drop removal of 50, underlying atrial fibrillation, with V paced beats. Patient denies having any syncope, dizziness, headache while in the hospital. Patient is requesting to be discharged home. He states that he will follow up with his database management system specialist as well as PCP once being discharged and requesting not to be placed back on hospice services. Patient states that he will continue all previous home medications that he was on prior to hospice including rate control for his atrial fibrillation, Lasix for his bilateral lower extremity swelling, as well as Eliquis. Physical examination General: Alert and Oriented x3. No acute distress. Well-nourished. Eyes: EOMI. Anicteric. HENT: Moist mucous membranes. Lungs: Clear to auscultation bilaterally. No accessory muscle use. Cardiovascular: Regular rate and rhythm. No murmur. No JVD. Abdomen: Soft, non-tender and non-distended. No palpable masses. Extremities: No edema. Non-tender. Skin: No rashes or lesions. Warm. Neurologic: No focal neurological deficits. CN II-XII grossly intact, but not individually tested. Psychiatric: Cooperative. Appropriate mood and affect. Total time spent with patient discussing and formulating plan of care: 35 minutes. This medical document was created using an electronic medical record system with [employer] dictation system. Although this document has been carefully reviewed, there may still be some phonetic and typographical errors. These areas are purely typographical due to imperfections of the software programs, and do not reflect any compromise in the patient's medical care. Condition at Discharge: Guarded Final Diagnosis/Problems List Mechanical fall, questionable syncope, questionable pacemaker malfunction Secondary diagnosis: Status post pacemaker implant -underlying atrial fibrillation -obesity -acute on chronic diastolic heart failure -normocytic anemia Discharge Disposition: Home Discharge Instruct/Medications Diet: Cardiac 2g Na,low cholest Activity: No Restrictions, As Tolerated Follow Up/Referral: Follow up with Cardiology in one week Follow up with PCP in 1-2 weeks Medications: Continue all home medications. Patient states that he has medications for lower extremity swelling, Eliquis for his AFib, and blood pressure medication. Scheduled Amlodipine Besylate (Amlodipine Besylate), 5 MG PO BID, (Reported) Amlodipine Besylate (Amlodipine Besylate), 1 TAB PO DAILY Apixaban Base (Eliquis), 5 MG PO BID Aspirin (Aspir-81), 1 TAB PO DAILY, (Reported) Cephalexin Monohydrate (Cephalexin), 500 MG PO TID, (Reported) Chlordiazepoxide Hcl (Librium), 25 MG PO TID Clopidogrel Bisulfate (Plavix), 1 TAB PO DAILY, (Reported) Folic Acid (Folic Acid), 1 MG PO DAILY Furosemide (Furosemide), 40 MG PO BIDD, (Reported) Losartan Potassium (Losartan Potassium), 50 MG PO BID, (Reported) Magnesium (Magnesium 400 mg), 1 TAB PO DAILY Metolazone (Metolazone), 2.5 MG PO DAILY, (Reported) Thiamine HCl (Thiamine Hydrochloride), 100 MG PO DAILY 36 Discharge Statement: "Patient was advised to return to the ER or call 911 if any headaches, dizziness, shortness of breath, chest pain, abdominal pain, bleeding, fevers, or worsening of medical condition. Patient was counseled about treatment plan, medications, possible side effects, patientverbalized understanding. All questions were answered to the best of my ability. This discharge took greater then 30 minutes in planning, reviewing documentation, counseling the patient, and discussing with other team members." ASSESSMENT ASSESSMENT Assessment Mechanical fall, questionable syncope, questionable pacemaker malfunction Date of Service: Mar 27, 2025 Billing Provider: LICO ARENAS NP Common Visit Codes: 42005-NKQ/OBS DISCH DAY >30min LICO ARENAS NP Mar 27, 2025 14:40
--- NOTE | 2025-03-27 16:45 | DVHNC2 ---
Procedure - Metronic Micra interrogation: Battery Voltage: 3.16 V Remaining Longevity: >10 years VVI: 50 bpm Electrode Impedance: 550 Ohm Capture Threshold: 0.38 V @ 0.24 ms Programmed Sensitivity: 2.00 mV VS only: 59.4% PVC MONITOR only: 40.6% No specific episodes Normal functioning Micra Pacemaker RACHEL MARTINEZ MD Mar 27, 2025 16:45
== END 2025-03-27 18:02 | disposition home health service (06) | DRG 314 ==
LOC: EDUNIT# 16:24 → EDBD 16:24 → ER 16:28 → OVERFLOW 23:00 → TELE-EAST 03-25 02:07
PROVIDERS: ADMIT Nurse Practitioner Acute Care; ATTEND Nurse Practitioner Acute Care
PROC: 4B02XSZ Measurement of Cardiac Pacemaker, External Approach (ICD-10-PCS; principal; 2025-03-27)
DX: T82.118A Breakdown (mechanical) of other cardiac electronic device, initial encounter (principal); I50.33 Acute on chronic diastolic (congestive) heart failure; I48.20 Chronic atrial fibrillation, unspecified; S06.0XAA Concussion with loss of consciousness status unknown, initial encounter; I48.92 Unspecified atrial flutter; E66.9 Obesity, unspecified; D64.9 Anemia, unspecified; I48.91 Unspecified atrial fibrillation; I11.0 Hypertensive heart disease with heart failure; Z79.01 Long term (current) use of anticoagulants; Z79.82 Long term (current) use of aspirin; Z68.27 Body mass index [BMI] 27.0-27.9, adult; Z79.899 Other long term (current) drug therapy; Z79.2 Long term (current) use of antibiotics; Z95.0 Presence of cardiac pacemaker; Z87.891 Personal history of nicotine dependence; Y84.8 Other medical procedures as the cause of abnormal reaction of the patient, or of later complication, without mention of misadventure at the time of the procedure; Y92.89 Other specified places as the place of occurrence of the external cause
CPT/HCPCS: 36415; 70450; 71045; 80048; 80053; 80320; 82247; 83735; 84484; 85025; 85610; 86803; 87081; 87340; 93005; 97110; 97116; 97163; 97530; G0378